=== PATIENT | male | born 1960 | race Caucasian/White ===

== ENCOUNTER 2017-01-04 14:02 | Inpatient (IN) | payer OTHER ==
[~2017-01-04] VITALS: Ht 162.6 cm; Wt 92.9 kg
[~2017-01-04 14:02] MED LIST: VENTOLIN HFA18 GM IH; ZITHROMAX Z-PA250 MG PO
[2017-01-04 14:52] LABS: HEMATOCRIT 37.7 % (38.0-50.0); MCH 27.3 PG (29.0-34.0); MCHC 32.1 G/DL (30.0-36.0); MCV 84.9 FL (86-99); MEAN PLAT.VOLUME 8.3 uM^3 (9.0-12.4); PLATELET COUNT 315 K/uL (156-360); RBC DIS.WIDTH-CV 16.3 % (11.8-14.6); RBC DIS.WIDTH-SD 50.4 % (39-53); RED BLOOD COUNT 4.44 M/uL (4.00-5.50); WHITE BLOOD COUNT 9.6 K/uL (4.1-10.2)
[2017-01-04 15:05] LABS: CHLORIDE 100 mEq/L (99-109); POTASSIUM 4.1 mEq/L (3.7-5.4); SODIUM 137 mEq/L (136-147)
[2017-01-04 15:07] LABS: GLUCOSE 106 mg/dL (70-99)
[2017-01-04 15:08] LABS: ANION GAP 11 MEQ/L (2-14)
[2017-01-04 15:11] LABS: GFR ESTIMATE (CALCULATED) > 59 mL/min/
[2017-01-04 15:12] LABS: UREA NITROGEN (BUN) 25 mg/dL (9-23)
[2017-01-04 15:46] LABS: D-DIMER ELISA 0.75 mg/L FEU (< 0.57); TOTAL BILIRUBIN 0.6 mg/dL (0.0-1.0)
[2017-01-04 15:47] LABS: ALKALINE PHOSPHATASE 92 IU/L (3-129)
[2017-01-04 15:50] LABS: DIRECT BILIRUBIN 0.2 mg/dL (0.0-0.3)
[2017-01-04 15:56] LABS: TROP-I INTERPRETATION NEGATIVE; TROPONIN-I < 0.01 ng/mL (0.0-0.30)
[2017-01-04] MEDS ORDERED: TRIAZOLAM0.25 MG PO (18:15)
[2017-01-04] MEDS ORDERED: DOXEPIN HCL100 MG PO (18:17)
[2017-01-04] MEDS ORDERED: MEDROL DOSEPAK4 MG PO (18:17)
[2017-01-04] MEDS ORDERED: BUSPAR15 MG PO (18:18)
[2017-01-04] MEDS ORDERED: LASIX40 MG PO (18:18)
[2017-01-04] MEDS ORDERED: K-DUR20 MEQ PO (18:18)
[2017-01-04] MEDS ORDERED: DOXEPIN HCL25 MG PO (18:18)
[2017-01-04] MEDS ORDERED: BUPROPION HCL150 M2 PO (18:18)
[2017-01-04] MEDS ORDERED: CLONIDINE HCL0.2 MG PO (18:19)
[2017-01-04] MEDS ORDERED: ADVIL,NUPRIN,M200 MG PO (18:19)
[2017-01-04] MEDS ORDERED: LISINOPRIL10 MG PO (18:19)
[2017-01-04] MEDS ORDERED: COMBIVENT RESPIM4 GM IH (18:19)
[2017-01-04] MEDS ORDERED: SUBOXONE 8 MG-1 EAC2 SL (18:19)
[2017-01-04] MEDS ORDERED: INCRUSE ELLI62.5 MCG IH (18:27)
[2017-01-04] MEDS ORDERED: TIMOPTIC-0100 DROP/5 RIGHT EYE (18:30)
[2017-01-04 23:52] VITALS: BP 117/77
[2017-01-05 04:00] VITALS: BP 120/84
[2017-01-05 07:02] LABS: ANION GAP 11 MEQ/L (2-14); CHLORIDE 98 MEQ/L (99-109); GFR ESTIMATE (CALCULATED) > 59 mL/min/; POTASSIUM 3.9 MEQ/L (3.7-5.4); SAMPLE HEMOLYSIS CHECK 0; SAMPLE ICTERIC CHECK 0; SAMPLE LIPEMIA CHECK 0; SODIUM 135 MEQ/L (136-147); UREA NITROGEN (BUN) 28 mg/dL (9-23)
[2017-01-05 07:09] LABS: GLUCOSE 189 mg/dL (70-99)
[2017-01-05 07:15] LABS: EOSINOPHIL (%) 0 % (0-5); HEMATOCRIT 36.7 % (38.0-50.0); IMMATURE GRANULOCYTE (%) 0.2 % (0.0-0.7); LYMPHOCYTE COUNT 0.8 K/uL (1.0-2.8); MCH 26.4 PG (29.0-34.0); MCHC 30.2 G/DL (30.0-36.0); MCV 87.2 FL (86-99); MONOCYTE (%) 1.7 % (3-12); MONOCYTE COUNT 0.1 K/uL (0-0.8); NEUTROPHIL (%) 85.2 % (45-76); PLATELET COUNT 303 K/uL (156-360); RBC DIS.WIDTH-CV 16.8 % (11.8-14.6); RBC DIS.WIDTH-SD 53.3 % (39-53); RED BLOOD COUNT 4.21 M/uL (4.00-5.50)
[2017-01-05 07:16] LABS: WHITE BLOOD COUNT 5.9 K/uL (4.1-10.2)
[2017-01-05 07:54] LABS: INTERNAL CONTROL VALID? YES
[2017-01-05 08:35] VITALS: BP 135/78
[2017-01-05 09:21] LABS: TROP-I INTERPRETATION NEGATIVE; TROPONIN-I < 0.01 ng/mL (0.0-0.30)
[2017-01-05 10:55] VITALS: BP 159/96
[2017-01-05 16:03] LABS: INFLUENZA A VIRAL ANTIGEN NEGATIVE; INFLUENZA B VIRAL ANTIGEN NEGATIVE
[2017-01-05 16:28] VITALS: BP 126/72
[2017-01-06] VITALS: BP 122/63
[2017-01-06 07:27] LABS: ANION GAP 11 MEQ/L (2-14); CHLORIDE 100 MEQ/L (99-109); GFR ESTIMATE (CALCULATED) > 59 mL/min/; GLUCOSE 156 mg/dL (70-99); POTASSIUM 4.4 MEQ/L (3.7-5.4); SAMPLE HEMOLYSIS CHECK 0; SAMPLE ICTERIC CHECK 0; SAMPLE LIPEMIA CHECK 0; SODIUM 137 MEQ/L (136-147); UREA NITROGEN (BUN) 38 mg/dL (9-23)
[2017-01-06 16:16] VITALS: BP 126/71
[2017-01-07] VITALS: BP 182/82
[2017-01-07 03:59] VITALS: BP 169/95
[2017-01-07 07:30] VITALS: BP 159/80
[2017-01-07 10:40] VITALS: BP 136/93
[2017-01-07 15:57] VITALS: BP 160/98
[2017-01-08 00:21] VITALS: BP 161/86
[2017-01-08 08:35] VITALS: BP 131/77; BP 190/90
[2017-01-08 15:01] VITALS: BP 168/78
[2017-01-08 23:59] VITALS: BP 149/99
[2017-01-09 08:07] VITALS: BP 175/90
[2017-01-09 11:40] VITALS: BP 179/96
[2017-01-09 15:36] VITALS: BP 157/81
[2017-01-10 00:05] VITALS: BP 168/96
[2017-01-10 07:49] VITALS: BP 173/102
[2017-01-10 15:39] VITALS: BP 181/109
[2017-01-10 16:02] VITALS: BP 139/99
[2017-01-11] VITALS: BP 169/90
[2017-01-11 08:13] VITALS: BP 156/94
[2017-01-11 09:35] LABS: HEMATOCRIT 38.2 % (38.0-50.0); MCH 27.3 PG (29.0-34.0); MCHC 30.6 G/DL (30.0-36.0); MCV 89.3 FL (86-99); MEAN PLAT.VOLUME 8.5 uM^3 (9.0-12.4); PLATELET COUNT 347 K/uL (156-360); RBC DIS.WIDTH-SD 55.1 % (39-53); RED BLOOD COUNT 4.28 M/uL (4.00-5.50)
[2017-01-11 09:43] LABS: WHITE BLOOD COUNT 11.9 K/uL (4.1-10.2)
[2017-01-11 09:56] LABS: ANION GAP 7 MEQ/L (2-14); CHLORIDE 104 MEQ/L (99-109); POTASSIUM 4.5 MEQ/L (3.7-5.4); SAMPLE HEMOLYSIS CHECK 0; SAMPLE ICTERIC CHECK 0; SAMPLE LIPEMIA CHECK 0; SODIUM 143 MEQ/L (136-147)
[2017-01-11 10:18] LABS: GFR ESTIMATE (CALCULATED) > 59 mL/min/; GLUCOSE 88 mg/dL (70-99); UREA NITROGEN (BUN) 27 mg/dL (9-23)
[2017-01-11] MEDS ORDERED: THEO-DUR,THEOC300 MG PO (12:38)
[2017-01-11] MEDS ORDERED: MEDROL DOSEPAK4 MG PO ×2 (12:38→15:18)
[2017-01-11] MEDS ORDERED: ADVAIR HFA120 INHALA IH (12:38)
[2017-01-11] MEDS ORDERED: LEVOFLOXACIN500 MG PO (12:38)
[2017-01-11] MEDS ORDERED: TIMOPTIC-0100 DROP/5 RIGHT EYE (15:18)
[2017-01-11] MEDS ORDERED: TRIAZOLAM0.25 MG PO (15:18)
== END 2017-01-11 16:00 | disposition home or self-care (01) | DRG 190 ==
LOC: EME 14:02 → EDOF 19:54 → 5WEST 22:25 → EDOF 22:25 → 5WEST 23:04 → 5SOUTH 01-05 08:54 → 5WEST 01-05 08:54 → 5SOUTH 01-05 10:41
PROVIDERS: Hospitalist; Internal Medicine; Nurse Practitioner Adult Health
PROC: 02HV33Z Insertion of Infusion Device into Superior Vena Cava, Percutaneous Approach (ICD-10-PCS; principal; 2017-01-06)
DX: J44.1 Chronic obstructive pulmonary disease with (acute) exacerbation (principal); J18.0 Bronchopneumonia, unspecified organism; J96.90 Respiratory failure, unspecified, unspecified whether with hypoxia or hypercapnia; E78.5 Hyperlipidemia, unspecified; R05 Cough; R60.0 Localized edema; F17.200 Nicotine dependence, unspecified, uncomplicated; R06.01 Orthopnea; I15.0 Renovascular hypertension; R00.0 Tachycardia, unspecified; Z91.013 Allergy to seafood; D64.9 Anemia, unspecified; J44.0 Chronic obstructive pulmonary disease with (acute) lower respiratory infection; E78.2 Mixed hyperlipidemia; Z87.898 Personal history of other specified conditions; Z86.711 Personal history of pulmonary embolism; Z68.35 Body mass index [BMI] 35.0-35.9, adult; E66.9 Obesity, unspecified
CPT/HCPCS: 71010; 71020; 71275; 76937; 80048; 80076; 80198; 83880; 84484; 85025; 85027; 85379; 87040; 87070; 87205; 87449; 87493; 87502; 93005; 93306; 93970; 94640; 94640 76; 94644; 94645; 94760; 94799; 99202; 99281; 99285; C1752; C1894; G0378; J0456; J0574; J0692; J0696; J1170; J1650; J1885; J1940; J2060; J2270; J2930; J7030; J7040; J7050; J7512

== ENCOUNTER 2017-01-27 01:59 | Inpatient (IN) | payer OTHER ==
[~2017-01-27] VITALS: Ht 162.6 cm; Wt 95.8 kg
[~2017-01-27 01:59] MED LIST changes: +ADVAIR HFA120 INHALA IH; +ADVIL,NUPRIN,M200 MG PO; +BUPROPION HCL150 M2 PO; +BUSPAR15 MG PO; +CLONIDINE HCL0.2 MG PO; +COMBIVENT RESPIM4 GM IH; +DOXEPIN HCL100 MG PO; +DOXEPIN HCL25 MG PO; +INCRUSE ELLI62.5 MCG IH; +K-DUR20 MEQ PO; +LASIX40 MG PO; +LEVOFLOXACIN500 MG PO; +LISINOPRIL10 MG PO; +MEDROL DOSEPAK4 MG PO; +SUBOXONE 8 MG-1 EAC2 SL; +THEO-DUR,THEOC300 MG PO; +TIMOPTIC-0100 DROP/5 RIGHT EYE; +TRIAZOLAM0.25 MG PO
[2017-01-27 03:14] LABS: EOSINOPHIL (%) 3.4 % (0-5); EOSINOPHIL COUNT 0.3 K/uL (0-0.3); HEMATOCRIT 34.4 % (38.0-50.0); IMMATURE GRANULOCYTE (%) 0.1 % (0.0-0.7); INSTRUMENT ABS NEUTROPHIL CT 4.1 K/uL; LYMPHOCYTE COUNT 2.7 K/uL (1.0-2.8); MCH 27.6 PG (29.0-34.0); MCHC 31.4 G/DL (30.0-36.0); MCV 87.8 FL (86-99); MEAN PLAT.VOLUME 8.5 uM^3 (9.0-12.4); MONOCYTE (%) 8.3 % (3-12); MONOCYTE COUNT 0.6 K/uL (0-0.8); NEUTROPHIL (%) 53.5 % (45-76); NEUTROPHIL COUNT 4.1 K/uL (1.8-6.4); PLATELET COUNT 308 K/uL (156-360); RBC DIS.WIDTH-CV 15.5 % (11.8-14.6); RBC DIS.WIDTH-SD 49.4 % (39-53); RED BLOOD COUNT 3.92 M/uL (4.00-5.50)
[2017-01-27 03:17] LABS: WHITE BLOOD COUNT 7.7 K/uL (4.1-10.2)
[2017-01-27 03:25] LABS: CHLORIDE 110 mEq/L (99-109); POTASSIUM 3.7 mEq/L (3.7-5.4); SODIUM 145 mEq/L (136-147)
[2017-01-27 03:27] LABS: GLUCOSE 109 mg/dL (70-99)
[2017-01-27 03:28] LABS: ANION GAP 14 MEQ/L (2-14)
[2017-01-27 03:30] LABS: SERUM ETHYL ALCOHOL 279 mg/dL
[2017-01-27 03:31] LABS: GFR ESTIMATE (CALCULATED) > 59 mL/min/
[2017-01-27 03:32] LABS: UREA NITROGEN (BUN) 21 mg/dL (9-23)
[2017-01-27 03:59] LABS: TROP-I INTERPRETATION NEGATIVE; TROPONIN-I < 0.01 ng/mL (0.0-0.30)
[2017-01-27 06:00] LABS: AMPHETAMINE NEGATIVE (500 ng/mL); BENZODIAZEPINES NEGATIVE (150 ng/mL); COCAINE NEGATIVE (150 ng/mL); METHAMPHETAMINE NEGATIVE (500 ng/mL); OPIATES (MORPHINE) NEGATIVE (100 ng/mL); PHENCYCLIDINE NEGATIVE (25 ng/mL); THC CANNABINOIDS NEGATIVE (50 ng/mL)
[2017-01-27 06:01] LABS: BARBITURATES NEGATIVE (200 ng/mL); INTERNAL CONTROLS VALID? YES; METHADONE NEGATIVE (200 ng/mL); OXYCODONE NEGATIVE (100 ng/mL); PROPOXYPHENE NEGATIVE (300 ng/mL); TRICYCLIC ANTIDEPRESSANTS PRESUMPTIVE POSITIVE (300 ng/mL)
[2017-01-27 06:43] LABS: TROP-I INTERPRETATION NEGATIVE; TROPONIN-I < 0.01 ng/mL (0.0-0.30)
[2017-01-27 14:11] LABS: MAGNESIUM 1.8 mg/dL (1.3-2.7)
[2017-01-27 14:15] LABS: SERUM ETHYL ALCOHOL 85 mg/dL
[2017-01-27 14:54] LABS: IRON 37 MCG/DL (35-150)
[2017-01-27 15:36] VITALS: BP 150/104
[2017-01-27 15:56] LABS: FERRITIN 39 NG/ML (22-322)
[2017-01-27 19:35] VITALS: BP 170/93
[2017-01-27 23:24] VITALS: BP 158/83
[2017-01-28] VITALS (7 sets, daily range): BP systolic 146–179; BP diastolic 69–107
[2017-01-28 07:23] LABS: EOSINOPHIL (%) 0 % (0-5); HEMATOCRIT 31.6 % (38.0-50.0); IMMATURE GRANULOCYTE (%) 0.5 % (0.0-0.7); INSTRUMENT ABS NEUTROPHIL CT 4.3 K/uL; LYMPHOCYTE COUNT 0.9 K/uL (1.0-2.8); MCV 87.5 FL (86-99); MEAN PLAT.VOLUME 8.6 uM^3 (9.0-12.4); MONOCYTE (%) 7.4 % (3-12); MONOCYTE COUNT 0.4 K/uL (0-0.8); NEUTROPHIL (%) 75.6 % (45-76); NEUTROPHIL COUNT 4.3 K/uL (1.8-6.4); PLATELET COUNT 290 K/uL (156-360); RBC DIS.WIDTH-CV 15.4 % (11.8-14.6); RBC DIS.WIDTH-SD 49.1 % (39-53); RED BLOOD COUNT 3.61 M/uL (4.00-5.50); WHITE BLOOD COUNT 5.7 K/uL (4.1-10.2)
[2017-01-28 07:48] LABS: ANION GAP 9 MEQ/L (2-14); CHLORIDE 108 MEQ/L (99-109); GFR ESTIMATE (CALCULATED) > 59 mL/min/; GLUCOSE 177 mg/dL (70-99); POTASSIUM 3.8 MEQ/L (3.7-5.4); SAMPLE HEMOLYSIS CHECK 0; SAMPLE ICTERIC CHECK 0; SAMPLE LIPEMIA CHECK 0; SODIUM 140 MEQ/L (136-147); UREA NITROGEN (BUN) 15 mg/dL (9-23)
[2017-01-28 08:16] LABS: INTERNAL CONTROL VALID? YES
[2017-01-28 13:14] LABS: METH RESISTANT S AUREUS PCR NEGATIVE (NEGATIVE)
[2017-01-28 13:18] LABS: PROBE CHECK PASS; SPECIMEN PROCESSING CONTROL PASS
[2017-01-29 03:11] VITALS: BP 145/81
[2017-01-29 08:51] VITALS: BP 158/96
[2017-01-29 11:30] VITALS: BP 140/86
[2017-01-29] MEDS ORDERED: THEOCHRON300 MG PO ×2 (14:12→14:23)
[2017-01-29] MEDS ORDERED: HALCION0.25 MG PO (14:14)
[2017-01-29] MEDS ORDERED: LISINOPRIL20 MG PO (14:21)
[2017-01-29] MEDS ORDERED: ALPRAZOLAM0.25 M2 PO (14:25)
[2017-01-29 15:03] LABS: TROP-I INTERPRETATION NEGATIVE; TROPONIN-I < 0.01 ng/mL (0.0-0.30)
[2017-01-29 20:00] VITALS: BP 142/84
[2017-01-29 21:03] VITALS: BP 142/84
[2017-01-30] VITALS: BP 116/69
[2017-01-30 04:00] VITALS: BP 123/73
[2017-01-30] MEDS ORDERED: AZITHROMYCIN500 M1 PO (07:44)
[2017-01-30] MEDS ORDERED: NICOTINE PATCH1 EAC2 TD (07:45)
[2017-01-30] MEDS ORDERED: LOPRESSOR25 MG PO (07:46)
[2017-01-30] MEDS ORDERED: FOLIC ACID1 MG PO (07:47)
[2017-01-30] MEDS ORDERED: THIAMINE HCL100 MG PO (07:47)
[2017-01-30] MEDS ORDERED: PROTONIX40 MG PO (07:50)
[2017-01-30 08:26] VITALS: BP 142/84
[2017-01-30 11:38] VITALS: BP 144/84
== END 2017-01-30 12:27 | disposition home or self-care (01) | DRG 190 ==
LOC: EME → EDBD 01:59 → EME 01:59 → 5SOUTH 12:59 → EDOF 12:59 → 5SOUTH 15:25
PROVIDERS: Emergency Medicine; Internal Medicine
DX: J44.1 Chronic obstructive pulmonary disease with (acute) exacerbation (principal); J96.01 Acute respiratory failure with hypoxia; J44.0 Chronic obstructive pulmonary disease with (acute) lower respiratory infection; J20.9 Acute bronchitis, unspecified; F10.229 Alcohol dependence with intoxication, unspecified; Y90.8 Blood alcohol level of 240 mg/100 ml or more; F11.20 Opioid dependence, uncomplicated; K86.0 Alcohol-induced chronic pancreatitis; K29.20 Alcoholic gastritis without bleeding; R45.850 Homicidal ideations; D64.9 Anemia, unspecified; F41.1 Generalized anxiety disorder; I10 Essential (primary) hypertension; E78.5 Hyperlipidemia, unspecified; F17.200 Nicotine dependence, unspecified, uncomplicated; Z71.6 Tobacco abuse counseling; Z78.1 Physical restraint status; Z86.718 Personal history of other venous thrombosis and embolism; Z91.19 Patient's noncompliance with other medical treatment and regimen; Z76.5 Malingerer [conscious simulation]
CPT/HCPCS: 71010; 71250; 76937; 80048; 82607; 82728; 82746; 83540; 83690; 83735; 83880; 84466; 84484; 85025; 87040; 87070; 87205; 87449; 87502; 87641; 90839; 93005; 94640; 94640 76; 94644; 94667; 94668; 94760; 94799; 99202; 99281; 99285; C1894; G0480; J0574; J1630; J1650; J1956; J2060; J2543; J2920; J2930; J3370; J3411; J7030; J7050

== ENCOUNTER 2017-04-03 19:44 | Inpatient (IN) | payer OTHER ==
[~2017-04-03] VITALS: Ht 172.7 cm; Wt 94.0 kg
[~2017-04-03 19:44] MED LIST changes: +ALPRAZOLAM0.25 M2 PO; +AZITHROMYCIN500 M1 PO; +FOLIC ACID1 MG PO; +HALCION0.25 MG PO; +LISINOPRIL20 MG PO; +LOPRESSOR25 MG PO; +NICOTINE PATCH1 EAC2 TD; +PROTONIX40 MG PO; +THEOCHRON300 MG PO; +THIAMINE HCL100 MG PO
[2017-04-03 20:51] LABS: EOSINOPHIL (%) 0 % (0-5); HEMATOCRIT 43.2 % (38.0-50.0); IMMATURE GRANULOCYTE (%) 0.7 % (0.0-0.7); IMMATURE GRANULOCYTE COUNT 0.1 K/uL; INSTRUMENT ABS NEUTROPHIL CT 7.2 K/uL; LYMPHOCYTE COUNT 1.6 K/uL (1.0-2.8); MCH 29.6 PG (29.0-34.0); MCHC 31.7 G/DL (30.0-36.0); MCV 93.3 FL (86-99); MEAN PLAT.VOLUME 8.5 uM^3 (9.0-12.4); MONOCYTE (%) 10.9 % (3-12); MONOCYTE COUNT 1.1 K/uL (0-0.8); NEUTROPHIL (%) 72.2 % (45-76); NEUTROPHIL COUNT 7.2 K/uL (1.8-6.4); PLATELET COUNT 267 K/uL (156-360); RBC DIS.WIDTH-CV 15.9 % (11.8-14.6); RBC DIS.WIDTH-SD 54.9 % (39-53); RED BLOOD COUNT 4.63 M/uL (4.00-5.50)
[2017-04-03 21:03] LABS: CHLORIDE 105 mEq/L (99-109); POTASSIUM 4.2 mEq/L (3.7-5.4); SODIUM 142 mEq/L (136-147)
[2017-04-03 21:05] LABS: GLUCOSE 68 mg/dL (70-99)
[2017-04-03 21:06] LABS: ANION GAP 15 MEQ/L (2-14)
[2017-04-03 21:08] LABS: GFR ESTIMATE (CALCULATED) > 59 mL/min/; SERUM ETHYL ALCOHOL 111 mg/dL
[2017-04-03 21:09] LABS: UREA NITROGEN (BUN) 23 mg/dL (9-23)
[2017-04-03 21:13] LABS: TROP-I INTERPRETATION NEGATIVE; TROPONIN-I 0.02 ng/mL (0.0-0.30)
[2017-04-03 23:37] LABS: ADD MIUA? YES; BILIRUBIN NEGATIVE; BLOOD MODERATE; COLOR YELLOW ((YELLOW)); GLUCOSE (STRIP) NEGATIVE; KETONES 20; LEUKOCYTES NEGATIVE; NITRITE NEGATIVE; PROTEIN (STRIP) 100; SPECIFIC GRAVITY 1.014 (1.000-1.030); UROBILINOGEN 0.2 MG/DL (0.2-1.0)
[2017-04-03 23:41] LABS: BACTERIA NONE SEEN /HPF; EPITHELIAL CELLS RARE /HPF; HYALINE CASTS 0-5 /LPF; MUCUS NONE SEEN /LPF; RED BLOOD CELLS 0-5 /HPF (0-5); UCUL ADDED? NO; WHITE BLOOD CELLS 0-5 /HPF (0-5)
[2017-04-03 23:59] LABS: AMPHETAMINE NEGATIVE (500 ng/mL); BARBITURATES NEGATIVE (200 ng/mL); BENZODIAZEPINES PRESUMPTIVE POSITIVE (150 ng/mL); COCAINE NEGATIVE (150 ng/mL); METHADONE NEGATIVE (200 ng/mL); METHAMPHETAMINE NEGATIVE (500 ng/mL); OPIATES (MORPHINE) NEGATIVE (100 ng/mL); OXYCODONE NEGATIVE (100 ng/mL); PHENCYCLIDINE NEGATIVE (25 ng/mL); PROPOXYPHENE NEGATIVE (300 ng/mL); THC CANNABINOIDS NEGATIVE (50 ng/mL); TRICYCLIC ANTIDEPRESSANTS PRESUMPTIVE POSITIVE (300 ng/mL)
[2017-04-04] LABS: ADD MEDTOX COMMENT Y; INTERNAL CONTROLS VALID? YES
[2017-04-04 00:30] LABS: POINT-OF-CARE METER ID UU14100415
[2017-04-04 02:34] LABS: BENZODIAZEPINES, URINE SCREEN POSITIVE (200 ng/mL)
[2017-04-04 07:17] LABS: POINT-OF-CARE METER ID UU13113702
[2017-04-04 08:10] LABS: HEMATOCRIT 38.8 % (38.0-50.0); MCH 29.5 PG (29.0-34.0); MCHC 32.2 G/DL (30.0-36.0); MCV 91.5 FL (86-99); MEAN PLAT.VOLUME 8.9 uM^3 (9.0-12.4); PLATELET COUNT 294 K/uL (156-360); RBC DIS.WIDTH-CV 15.9 % (11.8-14.6); RBC DIS.WIDTH-SD 53.2 % (39-53); RED BLOOD COUNT 4.24 M/uL (4.00-5.50)
[2017-04-04 08:40] LABS: CHLORIDE 103 mEq/L (99-109); SODIUM 138 mEq/L (136-147)
[2017-04-04 08:44] LABS: ANION GAP 10 MEQ/L (2-14); GLUCOSE 168 mg/dL (70-99)
[2017-04-04 08:45] LABS: TOTAL BILIRUBIN 0.5 mg/dL (0.0-1.0)
[2017-04-04 08:46] LABS: ALKALINE PHOSPHATASE 71 IU/L (3-129); GFR ESTIMATE (CALCULATED) > 59 mL/min/
[2017-04-04 08:47] LABS: UREA NITROGEN (BUN) 20 mg/dL (9-23)
[2017-04-04 11:38] LABS: BASE EXCESS 1.8 mEq/L (-3 to +3); BICARBONATE 25.7 mEq/L (22-26); CARBOXY HGB 2.3 % (0-5); COMMENTS - BLOOD GASES A+C+; DEVICE NC; METHEMOGLOBIN 1.6 % (0-1.5); O2 FLOW 2 L/MIN; PCO2 37 mm Hg (35-45); PO2 60 mm Hg (80-100); SITE RRA; TOTAL RESP RATE 14 resp/min; pH 7.45 (7.35-7.45)
[2017-04-04 12:26] LABS: D-DIMER ELISA 1.05 mg/L FEU (< 0.57)
[2017-04-04 12:34] VITALS: BP 188/107
[2017-04-04 15:32] VITALS: BP 194/103
[2017-04-04 20:02] VITALS: BP 186/111
[2017-04-04 23:13] VITALS: BP 168/94
[2017-04-05 03:44] VITALS: BP 149/88
[2017-04-05 08:58] VITALS: BP 183/101
[2017-04-05 12:38] VITALS: BP 185/110
[2017-04-05 12:40] VITALS: BP 163/89
[2017-04-05] MEDS ORDERED: SUBOXONE 8 MG-1 EAC2 SL (13:51)
[2017-04-05] MEDS ORDERED: ANORO ELLIPTA1 EACH IH (13:52)
[2017-04-05] MEDS ORDERED: BUSPAR30 MG PO (13:53)
[2017-04-05] MEDS ORDERED: FUROSEMIDE20 MG PO (14:07)
[2017-04-05 16:18] LABS: LIPASE 12 U/L (1.0-51.0)
[2017-04-05 19:59] VITALS: BP 156/93
[2017-04-05 23:55] VITALS: BP 140/83
[2017-04-06 04:02] VITALS: BP 119/56
[2017-04-06 08:17] VITALS: BP 110/72
[2017-04-06 11:08] VITALS: BP 145/85
[2017-04-06] MEDS ORDERED: THEO-DUR,THEOC300 MG PO (16:17)
[2017-04-06 16:39] VITALS: BP 159/94
[2017-04-06 19:41] VITALS: BP 129/77
[2017-04-06 23:34] VITALS: BP 149/81
[2017-04-07 04:13] VITALS: BP 146/93
[2017-04-07 08:34] VITALS: BP 147/82
[2017-04-07] MEDS ORDERED: DOXYCYCLINE HY100 M3 PO (11:32)
[2017-04-07] MEDS ORDERED: PREDNISONE20 MG PO (11:32)
[2017-04-07] MEDS ORDERED: LOPRESSOR25 MG PO (11:32)
[2017-04-07] MEDS ORDERED: LISINOPRIL40 MG PO (11:32)
[2017-04-07] MEDS ORDERED: BREO ELLIPTA I1 EACH IH (12:05)
[2017-04-07] MEDS ORDERED: ATROVENT H200 INHALA IH (12:05)
== END 2017-04-07 13:09 | disposition home or self-care (01) | DRG 947 ==
LOC: EME 19:44 → EDOF 04-04 04:58 → 5SOUTH 04-04 04:58
PROVIDERS: Emergency Medicine; Internal Medicine; Physician Assistant Medical
PROC: HZ2ZZZZ Detoxification Services for Substance Abuse Treatment (ICD-10-PCS; principal; 2017-04-04)
DX: R41.82 Altered mental status, unspecified (principal); F10.221 Alcohol dependence with intoxication delirium; F10.239 Alcohol dependence with withdrawal, unspecified; J44.1 Chronic obstructive pulmonary disease with (acute) exacerbation; J18.9 Pneumonia, unspecified organism; J44.0 Chronic obstructive pulmonary disease with (acute) lower respiratory infection; F11.20 Opioid dependence, uncomplicated; E86.0 Dehydration; Y90.5 Blood alcohol level of 100-119 mg/100 ml; F41.9 Anxiety disorder, unspecified; I10 Essential (primary) hypertension; E78.5 Hyperlipidemia, unspecified; F17.210 Nicotine dependence, cigarettes, uncomplicated
CPT/HCPCS: 36600; 70450; 71010; 71275; 80048; 80053; 81003; 82803; 82948; 83605; 83690; 84484; 84999; 85025; 85027; 85379; 87040; 93005; 93970; 94640; 94640 76; 94799; 99202; G0480; J0360; J0574; J0696; J1644; J2060; J2310; J3411; J3475; J7030; J7042; J7050; J7512

== ENCOUNTER 2017-04-11 23:50 | Emergency (ER) | payer OTHER ==
[~2017-04-11] VITALS: Ht 162.6 cm; Wt 83.2 kg
[~2017-04-11 23:50] MED LIST changes: +ANORO ELLIPTA1 EACH IH; +ATROVENT H200 INHALA IH; +BREO ELLIPTA I1 EACH IH; +BUSPAR30 MG PO; +DOXYCYCLINE HY100 M3 PO; +FUROSEMIDE20 MG PO; +LISINOPRIL40 MG PO; +PREDNISONE20 MG PO
[2017-04-12 01:00] LABS: CHLORIDE 108 mEq/L (99-109); SODIUM 143 mEq/L (136-147)
[2017-04-12 01:02] LABS: GLUCOSE 84 mg/dL (70-99)
[2017-04-12 01:03] LABS: ANION GAP 11 MEQ/L (2-14)
[2017-04-12 01:06] LABS: GFR ESTIMATE (CALCULATED) > 59 mL/min/; UREA NITROGEN (BUN) 24 mg/dL (9-23)
[2017-04-12 01:10] LABS: TROP-I INTERPRETATION NEGATIVE; TROPONIN-I 0.02 ng/mL (0.0-0.30)
[2017-04-12] MEDS ORDERED: PREDNISONE50 MG PO (01:30)
[2017-04-12] MEDS ORDERED: AZITHROMYCIN250 MG1 PO (01:34)
[2017-04-12 02:03] VITALS: BP 150/98
== END 2017-04-12 02:05 ==
LOC: EME 23:50
PROVIDERS: Emergency Medicine
DX: J44.1 Chronic obstructive pulmonary disease with (acute) exacerbation (principal)
CPT/HCPCS: 71020; 80048; 84484; 93005; 94640; 99281; 99284; J7512

== ENCOUNTER 2017-05-19 17:21 | Emergency (ER) | payer OTHER ==
[~2017-05-19 17:21] MED LIST changes: +AZITHROMYCIN250 MG1 PO; +PREDNISONE50 MG PO
[2017-05-20] MEDS ORDERED: VENTOLIN HFA18 GM IH (22:51)
== END 2017-05-19 17:25 | disposition left against medical advice (07) ==
LOC: EME 17:21
DX: F10.10 Alcohol abuse, uncomplicated (principal); Z53.21 Procedure and treatment not carried out due to patient leaving prior to being seen by health care provider

== ENCOUNTER 2017-05-20 10:12 | Emergency (ER) | payer OTHER ==
[~2017-05-20] VITALS: Ht 167.6 cm; Wt 83.3 kg
[2017-05-20 12:00] LABS: BASOPHIL COUNT 0.1 K/uL (0-0.1); EOSINOPHIL (%) 0.6 % (0-5); EOSINOPHIL COUNT 0.1 K/uL (0-0.3); HEMATOCRIT 44.4 % (38.0-50.0); IMMATURE GRANULOCYTE (%) 0.2 % (0.0-0.7); INSTRUMENT ABS NEUTROPHIL CT 5.9 K/uL; LYMPHOCYTE COUNT 1.6 K/uL (1.0-2.8); MCH 29.3 PG (29.0-34.0); MCHC 33.1 G/DL (30.0-36.0); MCV 88.4 FL (86-99); MEAN PLAT.VOLUME 8.9 uM^3 (9.0-12.4); MONOCYTE (%) 7.2 % (3-12); MONOCYTE COUNT 0.6 K/uL (0-0.8); NEUTROPHIL COUNT 5.9 K/uL (1.8-6.4); PLATELET COUNT 240 K/uL (156-360); RBC DIS.WIDTH-CV 13.9 % (11.8-14.6); RBC DIS.WIDTH-SD 45.1 % (39-53); RED BLOOD COUNT 5.02 M/uL (4.00-5.50); WHITE BLOOD COUNT 8.2 K/uL (4.1-10.2)
[2017-05-20 12:09] LABS: CHLORIDE 106 mEq/L (99-109); POTASSIUM 3.5 mEq/L (3.7-5.4); SODIUM 145 mEq/L (136-147)
[2017-05-20 12:11] LABS: GLUCOSE 91 mg/dL (70-99)
[2017-05-20 12:13] LABS: ANION GAP 19 MEQ/L (2-14)
[2017-05-20 12:15] LABS: GFR ESTIMATE (CALCULATED) > 59 mL/min/
[2017-05-20 12:16] LABS: UREA NITROGEN (BUN) 31 mg/dL (9-23)
[2017-05-20 12:21] LABS: TROP-I INTERPRETATION NEGATIVE; TROPONIN-I 0.08 ng/mL (0.0-0.30)
[2017-05-20 19:03] LABS: TROP-I INTERPRETATION NEGATIVE; TROPONIN-I 0.08 ng/mL (0.0-0.30)
[2017-05-20] MEDS ORDERED: VENTOLIN HFA18 GM IH (22:51)
[2017-05-20 23:07] VITALS: BP 122/83
== END 2017-05-20 23:08 | disposition home or self-care (01) ==
LOC: EME → EDBD 10:12 → EME 10:12
PROVIDERS: Emergency Medicine
DX: F10.129 Alcohol abuse with intoxication, unspecified (principal); J44.9 Chronic obstructive pulmonary disease, unspecified; F17.200 Nicotine dependence, unspecified, uncomplicated; Y90.8 Blood alcohol level of 240 mg/100 ml or more; I10 Essential (primary) hypertension; Z91.013 Allergy to seafood
CPT/HCPCS: 70450; 71010; 80048; 84484; 85025; 93005; 94640; 99281; 99285; G0480; J1100; J2060; J2310

== ENCOUNTER 2017-06-07 16:24 | Inpatient (IN) | payer OTHER ==
[~2017-06-07] VITALS: Ht 165.1 cm; Wt 99.0 kg
[2017-06-07 17:59] LABS: CHLORIDE 98 mEq/L (99-109); POTASSIUM 2.9 mEq/L (3.7-5.4); SODIUM 139 mEq/L (136-147)
[2017-06-07 18:02] LABS: GLUCOSE 95 mg/dL (70-99)
[2017-06-07 18:03] LABS: ANION GAP 19 MEQ/L (2-14)
[2017-06-07 18:04] LABS: TOTAL BILIRUBIN 0.3 mg/dL (0.0-1.0)
[2017-06-07 18:05] LABS: SERUM ETHYL ALCOHOL 140 mg/dL
[2017-06-07 18:06] LABS: ALKALINE PHOSPHATASE 93 IU/L (3-129); GFR ESTIMATE (CALCULATED) 17 mL/min/
[2017-06-07 18:08] LABS: UREA NITROGEN (BUN) 32 mg/dL (9-23)
[2017-06-07 18:09] LABS: SALICYLATE < 5.0 MG/DL (15-30); TROP-I INTERPRETATION NEGATIVE; TROPONIN-I 0.02 ng/mL (0.0-0.30)
[2017-06-07 18:10] LABS: LIPASE 27 U/L (1.0-51.0)
[2017-06-07 19:11] LABS: EOSINOPHIL (%) 1.3 % (0-5); EOSINOPHIL COUNT 0.1 K/uL (0-0.3); HEMATOCRIT 32.4 % (38.0-50.0); IMMATURE GRANULOCYTE (%) 0.3 % (0.0-0.7); INSTRUMENT ABS NEUTROPHIL CT 4.4 K/uL; MCH 29.3 PG (29.0-34.0); MCHC 31.8 G/DL (30.0-36.0); MEAN PLAT.VOLUME 8.8 uM^3 (9.0-12.4); MONOCYTE (%) 9.3 % (3-12); MONOCYTE COUNT 0.7 K/uL (0-0.8); NEUTROPHIL (%) 60.9 % (45-76); NEUTROPHIL COUNT 4.4 K/uL (1.8-6.4); PLATELET COUNT 222 K/uL (156-360); RBC DIS.WIDTH-SD 54.3 % (39-53); WHITE BLOOD COUNT 7.2 K/uL (4.1-10.2)
[2017-06-07 19:12] LABS: RED BLOOD COUNT 3.52 M/uL (4.00-5.50)
[2017-06-07 20:52] LABS: ADD MIUA? YES; BILIRUBIN NEGATIVE; BLOOD SMALL; COLOR YELLOW ((YELLOW)); GLUCOSE (STRIP) NEGATIVE; KETONES NEGATIVE; LEUKOCYTES NEGATIVE; NITRITE NEGATIVE; PROTEIN (STRIP) 100; SPECIFIC GRAVITY 1.017 (1.000-1.030); UROBILINOGEN 0.2 MG/DL (0.2-1.0)
[2017-06-07 21:05] LABS: BACTERIA NONE SEEN /HPF; EPITHELIAL CELLS RARE /HPF; HYALINE CASTS TNTC /LPF; MUCUS TRACE /LPF; RED BLOOD CELLS 0-5 /HPF (0-5); UCUL ADDED? YES
[2017-06-07] MEDS ORDERED: INCRUSE ELLI62.5 MCG IH (21:27)
[2017-06-07] MEDS ORDERED: BUSPAR30 MG PO (21:28)
[2017-06-07] MEDS ORDERED: DOXEPIN HCL100 MG PO (21:28)
[2017-06-07] MEDS ORDERED: DOXEPIN HCL25 MG PO (21:28)
[2017-06-07] MEDS ORDERED: WELLBUTRIN SR150 MG PO (21:28)
[2017-06-07] MEDS ORDERED: HALCION0.25 MG PO (21:28)
[2017-06-07] MEDS ORDERED: MICRO-K10 ME2 PO (21:28)
[2017-06-07] MEDS ORDERED: ALPRAZOLAM0.25 M2 PO (21:29)
[2017-06-08] VITALS (7 sets, daily range): BP systolic 123–170; BP diastolic 78–95
[2017-06-08 05:50] LABS: EOSINOPHIL (%) 3.7 % (0-5); EOSINOPHIL COUNT 0.2 K/uL (0-0.3); HEMATOCRIT 31.9 % (38.0-50.0); IMMATURE GRANULOCYTE (%) 0.3 % (0.0-0.7); INSTRUMENT ABS NEUTROPHIL CT 2.8 K/uL; LYMPHOCYTE COUNT 2.1 K/uL (1.0-2.8); MCH 29.2 PG (29.0-34.0); MCHC 31.3 G/DL (30.0-36.0); MEAN PLAT.VOLUME 9.2 uM^3 (9.0-12.4); MONOCYTE (%) 12.6 % (3-12); MONOCYTE COUNT 0.8 K/uL (0-0.8); NEUTROPHIL (%) 47.7 % (45-76); NEUTROPHIL COUNT 2.8 K/uL (1.8-6.4); PLATELET COUNT 219 K/uL (156-360); RBC DIS.WIDTH-CV 16.2 % (11.8-14.6); RBC DIS.WIDTH-SD 54.7 % (39-53); RED BLOOD COUNT 3.43 M/uL (4.00-5.50); WHITE BLOOD COUNT 5.9 K/uL (4.1-10.2)
[2017-06-08 06:45] LABS: ANION GAP 12 MEQ/L (2-14); CHLORIDE 107 MEQ/L (99-109); GLUCOSE 83 mg/dL (70-99); MAGNESIUM 1.3 mg/dl (1.3-2.7); SAMPLE HEMOLYSIS CHECK 0; SAMPLE ICTERIC CHECK 0; SAMPLE LIPEMIA CHECK 0; SODIUM 142 MEQ/L (136-147); UREA NITROGEN (BUN) 28 mg/dL (9-23)
[2017-06-08 06:52] LABS: GFR ESTIMATE (CALCULATED) 33 mL/min/
[2017-06-08 06:53] LABS: POTASSIUM 3.8 MEQ/L (3.7-5.4)
[2017-06-09] VITALS (11 sets, daily range): BP systolic 136–193; BP diastolic 84–105
[2017-06-09 06:57] LABS: AMYLASE 46 IU/L (1-118); ANION GAP 8 MEQ/L (2-14); CHLORIDE 110 MEQ/L (99-109); CREATINE KINASE 50 IU/L (1-294); GLUCOSE 88 mg/dL (70-99); IRON 70 MCG/DL (35-150); LIPASE 30 U/L (1.0-51.0); POTASSIUM 3.9 MEQ/L (3.7-5.4); SAMPLE HEMOLYSIS CHECK 0; SAMPLE ICTERIC CHECK 0; SAMPLE LIPEMIA CHECK 0; SERUM ETHYL ALCOHOL < 10 mg/dL; SODIUM 142 MEQ/L (136-147); UREA NITROGEN (BUN) 34 mg/dL (9-23); URIC ACID 7.4 mg/dL (3.1-9.2)
[2017-06-09 07:08] LABS: GFR ESTIMATE (CALCULATED) > 59 mL/min/; MAGNESIUM 1.8 mg/dl (1.3-2.7)
[2017-06-10 02:45] VITALS: BP 160/86
[2017-06-10 07:30] VITALS: BP 152/80
[2017-06-10 09:41] LABS: ANION GAP 10 MEQ/L (2-14); CHLORIDE 108 MEQ/L (99-109); GFR ESTIMATE (CALCULATED) > 59 mL/min/; GLUCOSE 84 mg/dL (70-99); SAMPLE HEMOLYSIS CHECK 0; SAMPLE ICTERIC CHECK 0; SAMPLE LIPEMIA CHECK 0; SODIUM 142 MEQ/L (136-147); UREA NITROGEN (BUN) 24 mg/dL (9-23)
[2017-06-10 10:59] VITALS: BP 167/80
[2017-06-10 15:57] VITALS: BP 170/80
[2017-06-10 19:13] VITALS: BP 144/88
[2017-06-10 23:10] VITALS: BP 160/92
[2017-06-11 07:13] VITALS: BP 162/84
[2017-06-11 07:24] LABS: ANION GAP 9 MEQ/L (2-14); CHLORIDE 106 MEQ/L (99-109); GFR ESTIMATE (CALCULATED) > 59 mL/min/; GLUCOSE 96 mg/dL (70-99); POTASSIUM 4.2 MEQ/L (3.7-5.4); SAMPLE HEMOLYSIS CHECK 0; SAMPLE ICTERIC CHECK 0; SAMPLE LIPEMIA CHECK 0; SODIUM 142 MEQ/L (136-147); UREA NITROGEN (BUN) 30 mg/dL (9-23)
[2017-06-11 15:45] VITALS: BP 170/100
[2017-06-11 22:05] VITALS: BP 132/82
[2017-06-11 23:15] VITALS: BP 133/81
[2017-06-12 06:54] LABS: ANION GAP 9 MEQ/L (2-14); CHLORIDE 104 MEQ/L (99-109); GFR ESTIMATE (CALCULATED) > 59 mL/min/; GLUCOSE 100 mg/dL (70-99); POTASSIUM 4.5 MEQ/L (3.7-5.4); SAMPLE HEMOLYSIS CHECK 0; SAMPLE ICTERIC CHECK 0; SAMPLE LIPEMIA CHECK 0; SODIUM 142 MEQ/L (136-147); UREA NITROGEN (BUN) 30 mg/dL (9-23)
[2017-06-12 07:15] VITALS: BP 182/102
[2017-06-12] MEDS ORDERED: METOPROLOL SUC100 MG PO (15:53)
[2017-06-12] MEDS ORDERED: CLONIDINE1 EAC1 TD (15:53)
[2017-06-12] MEDS ORDERED: VALSARTAN160 MG PO (15:53)
[2017-06-12] MEDS ORDERED: APRESOLINE50 MG PO (15:53)
[2017-06-12] MEDS ORDERED: TYLENOL REGULA325 MG PO (15:54)
[2017-06-12 16:00] VITALS: BP 181/96
[2017-06-12] MEDS ORDERED: ZOLPIDEM TARTRAT5 MG PO (16:01)
[2017-06-12] MEDS ORDERED: SUBOXONE 8 MG-1 EAC2 SL (16:33)
== END 2017-06-12 17:37 | disposition home health service (06) | DRG 683 ==
LOC: EME 16:24 → EDOF 21:42 → 5EAST 21:42 → ENRESERV 21:53 → EDOF 22:35 → ENRESERV 23:03 → 4EAST 06-08 00:51 → ENRESERV 06-09 12:08 → CANRESERV 06-09 12:11 → ENRESERV 06-09 12:58 → 5EAST 06-09 16:34
PROVIDERS: Emergency Medicine; Family Medicine Sports Medicine; Internal Medicine Nephrology
PROC: HZ2ZZZZ Detoxification Services for Substance Abuse Treatment (ICD-10-PCS; principal; 2017-06-07)
DX: N17.9 Acute kidney failure, unspecified (principal); F10.239 Alcohol dependence with withdrawal, unspecified; R56.9 Unspecified convulsions; F10.229 Alcohol dependence with intoxication, unspecified; E86.0 Dehydration; E87.2 Acidosis; E87.6 Hypokalemia; I95.9 Hypotension, unspecified; F11.20 Opioid dependence, uncomplicated; R41.82 Altered mental status, unspecified; I10 Essential (primary) hypertension; I25.10 Atherosclerotic heart disease of native coronary artery without angina pectoris; J44.9 Chronic obstructive pulmonary disease, unspecified; E78.5 Hyperlipidemia, unspecified; F41.8 Other specified anxiety disorders; F41.0 Panic disorder [episodic paroxysmal anxiety]; F14.10 Cocaine abuse, uncomplicated; G89.29 Other chronic pain; M54.5 Low back pain; M19.90 Unspecified osteoarthritis, unspecified site; F17.200 Nicotine dependence, unspecified, uncomplicated; Z86.711 Personal history of pulmonary embolism; Z86.73 Personal history of transient ischemic attack (TIA), and cerebral infarction without residual deficits; Z91.14 Patient's other noncompliance with medication regimen
CPT/HCPCS: 70450; 71010; 74176; 76770; 80048; 80053; 80069; 81003; 82150; 82550; 83540; 83605; 83690; 83735; 84466; 84484; 84550; 85025; 87040; 87086; 93005; 94640; 94640 76; 94799; 99202; 99281; 99285; G0480; J0360; J0574; J1940; J2060; J2543; J3370; J3411; J3475; J3480; J7030

== ENCOUNTER 2017-06-23 15:43 | Emergency (ER) | payer OTHER ==
[~2017-06-23] VITALS: Ht 165.1 cm; Wt 87.5 kg
[~2017-06-23 15:43] MED LIST changes: +APRESOLINE50 MG PO; +CLONIDINE1 EAC1 TD; +METOPROLOL SUC100 MG PO; +MICRO-K10 ME2 PO; +TYLENOL REGULA325 MG PO; +VALSARTAN160 MG PO; +WELLBUTRIN SR150 MG PO; +ZOLPIDEM TARTRAT5 MG PO
[2017-06-23 18:27] LABS: HEMATOCRIT 36.1 % (38.0-50.0); MCH 30.3 PG (29.0-34.0); MCHC 31.6 G/DL (30.0-36.0); PLATELET COUNT 274 K/uL (156-360); RBC DIS.WIDTH-CV 16.2 % (11.8-14.6); RBC DIS.WIDTH-SD 57.4 % (39-53); RED BLOOD COUNT 3.76 M/uL (4.00-5.50); WHITE BLOOD COUNT 7.3 K/uL (4.1-10.2)
[2017-06-23 18:36] LABS: CHLORIDE 113 mEq/L (99-109); SODIUM 145 mEq/L (136-147)
[2017-06-23 18:39] LABS: GLUCOSE 190 mg/dL (70-99)
[2017-06-23 18:40] LABS: ANION GAP 13 MEQ/L (2-14)
[2017-06-23 18:41] LABS: TOTAL BILIRUBIN 0.3 mg/dL (0.0-1.0)
[2017-06-23 18:42] LABS: ALKALINE PHOSPHATASE 89 IU/L (3-129); GFR ESTIMATE (CALCULATED) > 59 mL/min/
[2017-06-23 18:43] LABS: UREA NITROGEN (BUN) 26 mg/dL (9-23)
[2017-06-23 18:46] LABS: LIPASE 44 U/L (1.0-51.0)
[2017-06-23 19:44] LABS: SERUM ETHYL ALCOHOL 300 mg/dL
[2017-06-23 21:44] LABS: ADD MIUA? YES; BILIRUBIN NEGATIVE; BLOOD NEGATIVE; COLOR AMBER ((YELLOW)); GLUCOSE (STRIP) NEGATIVE; KETONES 5; LEUKOCYTES NEGATIVE; NITRITE NEGATIVE; PROTEIN (STRIP) 100; SPECIFIC GRAVITY 1.024 (1.000-1.030)
[2017-06-23 21:52] LABS: ADD MEDTOX COMMENT Y; AMPHETAMINE NEGATIVE (500 ng/mL); BARBITURATES NEGATIVE (200 ng/mL); BENZODIAZEPINES PRESUMPTIVE POSITIVE (150 ng/mL); COCAINE NEGATIVE (150 ng/mL); INTERNAL CONTROLS VALID? YES; METHADONE NEGATIVE (200 ng/mL); METHAMPHETAMINE NEGATIVE (500 ng/mL); OPIATES (MORPHINE) NEGATIVE (100 ng/mL); OXYCODONE NEGATIVE (100 ng/mL); PHENCYCLIDINE NEGATIVE (25 ng/mL); PROPOXYPHENE NEGATIVE (300 ng/mL); THC CANNABINOIDS NEGATIVE (50 ng/mL); TRICYCLIC ANTIDEPRESSANTS PRESUMPTIVE POSITIVE (300 ng/mL)
[2017-06-23 21:58] LABS: BACTERIA NONE SEEN /HPF; EPITHELIAL CELLS NONE SEEN /HPF; HYALINE CASTS 15-20 /LPF; MUCUS TRACE /LPF; RED BLOOD CELLS 0-5 /HPF (0-5); UCUL ADDED? YES
[2017-06-23 22:14] LABS: BENZODIAZEPINES QUANT VALUE 0 NG/ML; BENZODIAZEPINES, URINE SCREEN Negative (200 ng/mL)
[2017-06-23 22:35] VITALS: BP 126/85
== END 2017-06-23 22:36 | disposition home or self-care (01) ==
LOC: EME 15:43
PROVIDERS: Emergency Medicine
DX: K59.00 Constipation, unspecified (principal); F10.10 Alcohol abuse, uncomplicated; R56.9 Unspecified convulsions; Z86.73 Personal history of transient ischemic attack (TIA), and cerebral infarction without residual deficits; Z86.711 Personal history of pulmonary embolism; F17.200 Nicotine dependence, unspecified, uncomplicated
CPT/HCPCS: 71010; 80053; 81003; 83690; 84999; 85027; 86900; 86901; 87086; 99281; 99284; G0480

== ENCOUNTER 2017-06-26 12:55 | Inpatient (IN) | payer OTHER ==
[~2017-06-26] VITALS: Ht 165.1 cm; Wt 90.0 kg
[2017-06-26 14:54] LABS: EOSINOPHIL (%) 0.3 % (0-5); HEMATOCRIT 46.6 % (38.0-50.0); IMMATURE GRANULOCYTE (%) 0.4 % (0.0-0.7); IMMATURE GRANULOCYTE COUNT 0.1 K/uL; INSTRUMENT ABS NEUTROPHIL CT 9.6 K/uL; LYMPHOCYTE COUNT 1.8 K/uL (1.0-2.8); MCH 30.1 PG (29.0-34.0); MCHC 32.8 G/DL (30.0-36.0); MCV 91.7 FL (86-99); MEAN PLAT.VOLUME 9.3 uM^3 (9.0-12.4); MONOCYTE COUNT 1.1 K/uL (0-0.8); NEUTROPHIL (%) 75.9 % (45-76); NEUTROPHIL COUNT 9.6 K/uL (1.8-6.4); PLATELET COUNT 356 K/uL (156-360); PROTHROMBIN TIME 11.2 SEC (10.2-12.9); RBC DIS.WIDTH-CV 15.7 % (11.8-14.6); RBC DIS.WIDTH-SD 52.5 % (39-53); RED BLOOD COUNT 5.08 M/uL (4.00-5.50); WHITE BLOOD COUNT 12.7 K/uL (4.1-10.2)
[2017-06-26 14:57] LABS: PTT 29.8 SEC (25-37)
[2017-06-26 14:59] LABS: SODIUM 141 mEq/L (136-147)
[2017-06-26 15:00] LABS: MAGNESIUM 1.4 mg/dL (1.3-2.7)
[2017-06-26 15:01] LABS: CHLORIDE 98 mEq/L (99-109); POTASSIUM 3.1 mEq/L (3.7-5.4)
[2017-06-26 15:03] LABS: ANION GAP 23 MEQ/L (2-14); GLUCOSE 114 mg/dL (70-99)
[2017-06-26 15:06] LABS: ALKALINE PHOSPHATASE 117 IU/L (3-129); GFR ESTIMATE (CALCULATED) 39 mL/min/; TOTAL BILIRUBIN 0.8 mg/dL (0.0-1.0)
[2017-06-26 15:07] LABS: DIRECT BILIRUBIN 0.4 mg/dL (0.0-0.3); UREA NITROGEN (BUN) 16 mg/dL (9-23)
[2017-06-26 15:09] LABS: LIPASE 14 U/L (1.0-51.0)
[2017-06-26 15:15] LABS: TROP-I INTERPRETATION NEGATIVE
[2017-06-26 17:26] LABS: ADD MIUA? YES; BILIRUBIN NEGATIVE; BLOOD SMALL; COLOR YELLOW ((YELLOW)); GLUCOSE (STRIP) NEGATIVE; KETONES 5; LEUKOCYTES NEGATIVE; NITRITE NEGATIVE; PROTEIN (STRIP) 100; SPECIFIC GRAVITY 1.024 (1.000-1.030); UROBILINOGEN 0.2 MG/DL (0.2-1.0)
[2017-06-26 17:43] LABS: BACTERIA NONE SEEN /HPF; EPITHELIAL CELLS NONE SEEN /HPF; MUCUS TRACE /LPF; RED BLOOD CELLS 0-5 /HPF (0-5); WHITE BLOOD CELLS 0-5 /HPF (0-5)
[2017-06-26 17:55] LABS: ADD MEDTOX COMMENT Y; AMPHETAMINE NEGATIVE (500 ng/mL); BARBITURATES NEGATIVE (200 ng/mL); BENZODIAZEPINES PRESUMPTIVE POSITIVE (150 ng/mL); COCAINE NEGATIVE (150 ng/mL); INTERNAL CONTROLS VALID? YES; METHADONE NEGATIVE (200 ng/mL); METHAMPHETAMINE NEGATIVE (500 ng/mL); OPIATES (MORPHINE) NEGATIVE (100 ng/mL); OXYCODONE NEGATIVE (100 ng/mL); PHENCYCLIDINE NEGATIVE (25 ng/mL); PROPOXYPHENE NEGATIVE (300 ng/mL); THC CANNABINOIDS NEGATIVE (50 ng/mL); TRICYCLIC ANTIDEPRESSANTS PRESUMPTIVE POSITIVE (300 ng/mL)
[2017-06-26 18:36] LABS: BENZODIAZEPINES, URINE SCREEN POSITIVE (200 ng/mL)
[2017-06-26 19:30] VITALS: BP 167/99
[2017-06-26 19:31] VITALS: BP 167/99
[2017-06-26 20:00] VITALS: BP 144/94
[2017-06-26 20:56] LABS: METH RESISTANT S AUREUS PCR NEGATIVE (NEGATIVE)
[2017-06-26 20:57] LABS: PROBE CHECK PASS; SPECIMEN PROCESSING CONTROL PASS
[2017-06-26 21:00] VITALS: BP 166/113
[2017-06-26 22:00] VITALS: BP 141/91
[2017-06-26 23:00] VITALS: BP 159/99
[2017-06-26 23:46] LABS: AMYLASE 39 IU/L (1-118); SODIUM 138 mEq/L (136-147)
[2017-06-26 23:47] LABS: CHLORIDE 110 mEq/L (99-109); MAGNESIUM 1.2 mg/dL (1.3-2.7); POTASSIUM 3.9 mEq/L (3.7-5.4)
[2017-06-26 23:49] LABS: ANION GAP 13 MEQ/L (2-14)
[2017-06-26 23:53] LABS: UREA NITROGEN (BUN) 14 mg/dL (9-23)
[2017-06-26 23:55] LABS: GLUCOSE 81 mg/dL (70-99); LIPASE 45 U/L (1.0-51.0)
[2017-06-27] VITALS (14 sets, daily range): BP systolic 129–187; BP diastolic 82–149
[2017-06-27 00:21] LABS: GFR ESTIMATE (CALCULATED) > 59 mL/min/
[2017-06-27] MEDS ORDERED: BUSPAR5 MG PO (02:57)
[2017-06-27] MEDS ORDERED: TOPROL XL100 MG PO (02:58)
[2017-06-27] MEDS ORDERED: CATAPRES-TTS 21 EACH TD (02:58)
[2017-06-27] MEDS ORDERED: WELLBUTRIN SR150 MG PO (02:58)
[2017-06-27] MEDS ORDERED: APRESOLINE50 MG PO (02:59)
[2017-06-27] MEDS ORDERED: COMBIVENT RESPIM4 GM IH (02:59)
[2017-06-27] MEDS ORDERED: LISINOPRIL20 MG PO (02:59)
[2017-06-27] MEDS ORDERED: DOXEPIN HCL100 MG PO (03:00)
[2017-06-27] MEDS ORDERED: SINEQUAN25 MG PO (03:00)
[2017-06-27 06:03] LABS: PROTHROMBIN TIME 11.5 SEC (10.2-12.9)
[2017-06-27 06:06] LABS: PTT 71.1 SEC (25-37)
[2017-06-27 06:33] LABS: ALKALINE PHOSPHATASE 78 IU/L (3-129); ANION GAP 10 MEQ/L (2-14); CHLORIDE 109 MEQ/L (99-109); GFR ESTIMATE (CALCULATED) > 59 mL/min/; GLUCOSE 67 mg/dL (70-99); POTASSIUM 3.8 MEQ/L (3.7-5.4); SAMPLE HEMOLYSIS CHECK 0; SAMPLE ICTERIC CHECK 0; SAMPLE LIPEMIA CHECK 0; SODIUM 140 MEQ/L (136-147); TOTAL BILIRUBIN 0.9 MG/DL (0.0-1.0); UREA NITROGEN (BUN) 14 mg/dL (9-23)
[2017-06-27 06:54] LABS: MCH 30.4 PG (29.0-34.0); MCV 95.1 FL (86-99); RBC DIS.WIDTH-CV 15.9 % (11.8-14.6); RBC DIS.WIDTH-SD 56.2 % (39-53); WHITE BLOOD COUNT 6.4 K/uL (4.1-10.2)
[2017-06-27 07:02] LABS: MEAN PLAT.VOLUME 9.3 uM^3 (9.0-12.4); PLAT.SUFFICIENCY ADEQUATE
[2017-06-27 07:18] LABS: PLATELET COUNT 191 K/uL (156-360); RED BLOOD COUNT 3.68 M/uL (4.00-5.50)
[2017-06-27] MEDS ORDERED: TIMOPTIC-0100 DROP/5 BOTH EYES (15:45)
[2017-06-27] MEDS ORDERED: FOLIC ACID1 MG PO (15:46)
[2017-06-27] MEDS ORDERED: B-1100 MG PO (15:46)
[2017-06-27] MEDS ORDERED: VENTOLIN HFA18 GM IH (15:48)
[2017-06-27] MEDS ORDERED: INCRUSE ELLI62.5 MCG IH (15:49)
[2017-06-27] MEDS ORDERED: XANAX0.25 MG PO (15:50)
[2017-06-27] MEDS ORDERED: DIOVAN160 MG PO (15:50)
[2017-06-27] MEDS ORDERED: TYLENOL REGULA325 MG PO (15:52)
[2017-06-27] MEDS ORDERED: AMBIEN5 MG PO (15:53)
[2017-06-28 07:34] LABS: EOSINOPHIL (%) 4.6 % (0-5); EOSINOPHIL COUNT 0.3 K/uL (0-0.3); HEMATOCRIT 37.5 % (38.0-50.0); IMMATURE GRANULOCYTE (%) 0.2 % (0.0-0.7); INSTRUMENT ABS NEUTROPHIL CT 3.5 K/uL; LYMPHOCYTE COUNT 1.3 K/uL (1.0-2.8); MCH 29.6 PG (29.0-34.0); MCHC 31.5 G/DL (30.0-36.0); MCV 94.2 FL (86-99); MEAN PLAT.VOLUME 9.2 uM^3 (9.0-12.4); MONOCYTE COUNT 0.8 K/uL (0-0.8); NEUTROPHIL (%) 59.7 % (45-76); NEUTROPHIL COUNT 3.5 K/uL (1.8-6.4); PLATELET COUNT 207 K/uL (156-360); RBC DIS.WIDTH-CV 15.6 % (11.8-14.6); RBC DIS.WIDTH-SD 53.5 % (39-53); RED BLOOD COUNT 3.98 M/uL (4.00-5.50); WHITE BLOOD COUNT 5.9 K/uL (4.1-10.2)
[2017-06-28 08:15] VITALS: BP 189/94
[2017-06-28 16:39] VITALS: BP 189/104
[2017-06-28 17:39] VITALS: BP 178/100
[2017-06-29 00:34] VITALS: BP 173/110
== END 2017-06-29 03:00 | disposition left against medical advice (07) | DRG 438 ==
LOC: EME 12:55 → 4WEST 18:13 → EDOF 18:13 → ENRESERV 18:14 → 4WEST 19:24 → ENRESERV 06-27 11:46 → 5EAST 06-27 14:13
PROVIDERS: Emergency Medicine; Internal Medicine Critical Care Medicine; Specialist
PROC: 05HM33Z Insertion of Infusion Device into Right Internal Jugular Vein, Percutaneous Approach (ICD-10-PCS; principal; 2017-06-26)
DX: K85.90 Acute pancreatitis without necrosis or infection, unspecified (principal); I26.99 Other pulmonary embolism without acute cor pulmonale; F10.231 Alcohol dependence with withdrawal delirium; R57.9 Shock, unspecified; F11.20 Opioid dependence, uncomplicated; F17.200 Nicotine dependence, unspecified, uncomplicated; F41.8 Other specified anxiety disorders; I47.1 Supraventricular tachycardia; E83.42 Hypomagnesemia; G40.409 Other generalized epilepsy and epileptic syndromes, not intractable, without status epilepticus; I48.91 Unspecified atrial fibrillation; J44.9 Chronic obstructive pulmonary disease, unspecified; J93.9 Pneumothorax, unspecified; K86.0 Alcohol-induced chronic pancreatitis; J32.0 Chronic maxillary sinusitis; I25.10 Atherosclerotic heart disease of native coronary artery without angina pectoris; I10 Essential (primary) hypertension; F31.9 Bipolar disorder, unspecified; E87.6 Hypokalemia; K44.9 Diaphragmatic hernia without obstruction or gangrene; F19.10 Other psychoactive substance abuse, uncomplicated; E78.5 Hyperlipidemia, unspecified; Z86.73 Personal history of transient ischemic attack (TIA), and cerebral infarction without residual deficits; Z86.711 Personal history of pulmonary embolism; Z91.14 Patient's other noncompliance with medication regimen
CPT/HCPCS: 70450; 71010; 71275; 74000; 80048; 80048 91; 80053; 80076; 81003; 82150; 83605; 83690; 83735; 84484; 84999; 85025; 85027; 85379; 85610; 85730; 87040; 87086; 87641; 93005; 93970; 94640; 94640 76; 94799; 99202; 99281; 99285; C1751; J0360; J0692; J1200; J2060; J2405; J3411; J3475; J7030; J7050

== ENCOUNTER 2017-06-29 14:15 | Emergency (ER) | payer OTHER ==
[~2017-06-29] VITALS: Ht 177.8 cm; Wt 77.1 kg
[~2017-06-29 14:15] MED LIST changes: +AMBIEN5 MG PO; +B-1100 MG PO; +BUSPAR5 MG PO; +CATAPRES-TTS 21 EACH TD; +DIOVAN160 MG PO; +SINEQUAN25 MG PO; +TIMOPTIC-0100 DROP/5 BOTH EYES; +TOPROL XL100 MG PO; +XANAX0.25 MG PO
[2017-06-29 16:25] LABS: ADD MEDTOX COMMENT Y; AMPHETAMINE NEGATIVE (500 ng/mL); BARBITURATES NEGATIVE (200 ng/mL); BENZODIAZEPINES PRESUMPTIVE POSITIVE (150 ng/mL); COCAINE NEGATIVE (150 ng/mL); INTERNAL CONTROLS VALID? YES; METHADONE NEGATIVE (200 ng/mL); METHAMPHETAMINE NEGATIVE (500 ng/mL); OPIATES (MORPHINE) NEGATIVE (100 ng/mL); OXYCODONE PRESUMPTIVE POSITIVE (100 ng/mL); PHENCYCLIDINE NEGATIVE (25 ng/mL); PROPOXYPHENE NEGATIVE (300 ng/mL); THC CANNABINOIDS NEGATIVE (50 ng/mL); TRICYCLIC ANTIDEPRESSANTS PRESUMPTIVE POSITIVE (300 ng/mL)
[2017-06-29 16:28] LABS: HEMATOCRIT 37.9 % (38.0-50.0); MCHC 32.2 G/DL (30.0-36.0); MCV 93.1 FL (86-99); MEAN PLAT.VOLUME 9.4 uM^3 (9.0-12.4); PLATELET COUNT 192 K/uL (156-360); RBC DIS.WIDTH-CV 15.8 % (11.8-14.6); RBC DIS.WIDTH-SD 53.5 % (39-53); RED BLOOD COUNT 4.07 M/uL (4.00-5.50); WHITE BLOOD COUNT 7.4 K/uL (4.1-10.2)
[2017-06-29 16:40] LABS: CHLORIDE 109 mEq/L (99-109); POTASSIUM 3.3 mEq/L (3.7-5.4); SODIUM 144 mEq/L (136-147)
[2017-06-29 16:43] LABS: ANION GAP 16 MEQ/L (2-14); GLUCOSE 103 mg/dL (70-99)
[2017-06-29 16:44] LABS: SERUM ETHYL ALCOHOL 235 mg/dL
[2017-06-29 16:45] LABS: GFR ESTIMATE (CALCULATED) 56 mL/min/
[2017-06-29 16:46] LABS: UREA NITROGEN (BUN) 14 mg/dL (9-23)
[2017-06-29 16:59] LABS: BENZODIAZEPINES, URINE SCREEN POSITIVE (200 ng/mL)
[2017-06-29 23:35] VITALS: BP 112/72
== END 2017-06-29 23:36 | disposition home or self-care (01) ==
LOC: EME → EDBD 14:15 → EME 23:36
PROVIDERS: Emergency Medicine
DX: F10.129 Alcohol abuse with intoxication, unspecified (principal); Y90.7 Blood alcohol level of 200-239 mg/100 ml; I10 Essential (primary) hypertension; J44.9 Chronic obstructive pulmonary disease, unspecified; Z86.73 Personal history of transient ischemic attack (TIA), and cerebral infarction without residual deficits; Z86.711 Personal history of pulmonary embolism; F17.200 Nicotine dependence, unspecified, uncomplicated
CPT/HCPCS: 73610; 80048; 84999; 85027; 99281; 99284; G0480; J7030

== ENCOUNTER 2017-07-01 10:19 | Inpatient (IN) | payer OTHER ==
[~2017-07-01] VITALS: Ht 162.6 cm; Wt 84.2 kg
[2017-07-01 11:14] LABS: ADD MIUA? YES; BILIRUBIN NEGATIVE; BLOOD SMALL; COLOR YELLOW ((YELLOW)); GLUCOSE (STRIP) NEGATIVE; KETONES 5; LEUKOCYTES NEGATIVE; NITRITE NEGATIVE; PROTEIN (STRIP) NEGATIVE; UROBILINOGEN 0.2 MG/DL (0.2-1.0)
[2017-07-01 11:17] LABS: BACTERIA NONE SEEN /HPF; EPITHELIAL CELLS RARE /HPF; HYALINE CASTS 30-40 /LPF; MUCUS TRACE /LPF; RED BLOOD CELLS 0-5 /HPF (0-5); WHITE BLOOD CELLS 0-5 /HPF (0-5)
[2017-07-01 11:25] LABS: ADD MEDTOX COMMENT Y; AMPHETAMINE NEGATIVE (500 ng/mL); BARBITURATES NEGATIVE (200 ng/mL); BENZODIAZEPINES PRESUMPTIVE POSITIVE (150 ng/mL); COCAINE NEGATIVE (150 ng/mL); INTERNAL CONTROLS VALID? YES; METHADONE NEGATIVE (200 ng/mL); METHAMPHETAMINE NEGATIVE (500 ng/mL); OPIATES (MORPHINE) NEGATIVE (100 ng/mL); OXYCODONE NEGATIVE (100 ng/mL); PHENCYCLIDINE NEGATIVE (25 ng/mL); PROPOXYPHENE NEGATIVE (300 ng/mL); THC CANNABINOIDS NEGATIVE (50 ng/mL); TRICYCLIC ANTIDEPRESSANTS PRESUMPTIVE POSITIVE (300 ng/mL)
[2017-07-01 11:32] LABS: CHLORIDE 108 mEq/L (99-109); SODIUM 146 mEq/L (136-147)
[2017-07-01 11:33] LABS: POTASSIUM 4.3 mEq/L (3.7-5.4)
[2017-07-01 11:34] LABS: GLUCOSE 60 mg/dL (70-99)
[2017-07-01 11:35] LABS: ANION GAP 21 MEQ/L (2-14)
[2017-07-01 11:37] LABS: SERUM ETHYL ALCOHOL 277 mg/dL
[2017-07-01 11:38] LABS: GFR ESTIMATE (CALCULATED) > 59 mL/min/
[2017-07-01 11:39] LABS: UREA NITROGEN (BUN) 17 mg/dL (9-23)
[2017-07-01 12:01] LABS: BENZODIAZEPINES, URINE SCREEN POSITIVE (200 ng/mL)
[2017-07-01 15:53] LABS: BASOPHIL COUNT 0.1 K/uL (0-0.1); EOSINOPHIL (%) 1.5 % (0-5); EOSINOPHIL COUNT 0.1 K/uL (0-0.3); HEMATOCRIT 41.8 % (38.0-50.0); IMMATURE GRANULOCYTE (%) 0.3 % (0.0-0.7); INSTRUMENT ABS NEUTROPHIL CT 3.7 K/uL; LYMPHOCYTE COUNT 2.8 K/uL (1.0-2.8); MCH 30.3 PG (29.0-34.0); MCHC 32.5 G/DL (30.0-36.0); MCV 93.1 FL (86-99); MONOCYTE (%) 7.7 % (3-12); MONOCYTE COUNT 0.6 K/uL (0-0.8); NEUTROPHIL (%) 50.9 % (45-76); NEUTROPHIL COUNT 3.7 K/uL (1.8-6.4); RBC DIS.WIDTH-CV 16.4 % (11.8-14.6); RBC DIS.WIDTH-SD 56.2 % (39-53); RED BLOOD COUNT 4.49 M/uL (4.00-5.50); WHITE BLOOD COUNT 7.3 K/uL (4.1-10.2)
[2017-07-01 16:38] LABS: MEAN PLAT.VOLUME 10.6 uM^3 (9.0-12.4); PLAT.SUFFICIENCY ADEQUATE
[2017-07-01 16:49] LABS: PLATELET COUNT 264 K/uL (156-360)
[2017-07-01] MEDS ORDERED: CLONIDINE HCL0.2 MG PO (22:21)
[2017-07-01] MEDS ORDERED: BUSPAR30 MG PO (22:22)
[2017-07-01] MEDS ORDERED: DOXEPIN HCL100 MG PO (22:24)
[2017-07-01] MEDS ORDERED: DOXEPIN HCL25 MG PO (22:26)
[2017-07-01] MEDS ORDERED: TRIAZOLAM0.25 MG PO (22:27)
[2017-07-01 23:10] LABS: EOSINOPHIL (%) 1.9 % (0-5); EOSINOPHIL COUNT 0.2 K/uL (0-0.3); HEMATOCRIT 35.7 % (38.0-50.0); IMMATURE GRANULOCYTE (%) 0.3 % (0.0-0.7); INSTRUMENT ABS NEUTROPHIL CT 5.3 K/uL; LYMPHOCYTE COUNT 2.2 K/uL (1.0-2.8); MCH 30.4 PG (29.0-34.0); MCHC 33.1 G/DL (30.0-36.0); MEAN PLAT.VOLUME 8.7 uM^3 (9.0-12.4); MONOCYTE COUNT 1.4 K/uL (0-0.8); NEUTROPHIL (%) 58.5 % (45-76); NEUTROPHIL COUNT 5.3 K/uL (1.8-6.4); PLATELET COUNT 259 K/uL (156-360); RBC DIS.WIDTH-SD 54.4 % (39-53); RED BLOOD COUNT 3.88 M/uL (4.00-5.50)
[2017-07-01 23:19] LABS: CHLORIDE 107 mEq/L (99-109); SODIUM 141 mEq/L (136-147)
[2017-07-01 23:23] LABS: ANION GAP 10 MEQ/L (2-14); TOTAL BILIRUBIN 0.7 mg/dL (0.0-1.0)
[2017-07-01 23:25] LABS: GFR ESTIMATE (CALCULATED) > 59 mL/min/
[2017-07-01 23:26] LABS: UREA NITROGEN (BUN) 16 mg/dL (9-23)
[2017-07-01 23:32] LABS: GLUCOSE 131 mg/dL (70-99); POTASSIUM 3.2 mEq/L (3.7-5.4)
[2017-07-01 23:33] LABS: ALKALINE PHOSPHATASE 73 IU/L (3-129)
[2017-07-02] VITALS: BP 96/54
[2017-07-02 00:10] VITALS: BP 138/107; BP 139/107
[2017-07-02 07:20] VITALS: BP 135/105
[2017-07-02 09:28] LABS: ANION GAP 12 MEQ/L (2-14); CHLORIDE 109 MEQ/L (99-109); GFR ESTIMATE (CALCULATED) > 59 mL/min/; GLUCOSE 111 mg/dL (70-99); MAGNESIUM 2.1 mg/dl (1.3-2.7); POTASSIUM 3.9 MEQ/L (3.7-5.4); SAMPLE HEMOLYSIS CHECK 0; SAMPLE ICTERIC CHECK 0; SAMPLE LIPEMIA CHECK 0; SODIUM 142 MEQ/L (136-147); UREA NITROGEN (BUN) 12 mg/dL (9-23)
[2017-07-02 12:30] VITALS: BP 158/89
[2017-07-02 20:11] VITALS: BP 179/98
[2017-07-03] VITALS (8 sets, daily range): BP systolic 127–196; BP diastolic 76–120
[2017-07-04 08:20] VITALS: BP 188/118
[2017-07-04 13:15] VITALS: BP 180/119
[2017-07-04 17:55] VITALS: BP 182/98
[2017-07-04 18:03] LABS: INTER. NORMALIZED RATIO 1.1; PROTHROMBIN TIME 12.4 SEC (10.2-12.9)
[2017-07-04 19:20] VITALS: BP 170/113
[2017-07-04 22:52] VITALS: BP 162/85
[2017-07-05 04:08] VITALS: BP 152/89
[2017-07-05 07:32] LABS: PROTHROMBIN TIME 11.5 SEC (10.2-12.9)
[2017-07-05 08:11] VITALS: BP 184/110
[2017-07-05 12:07] VITALS: BP 180/102
[2017-07-05 12:27] VITALS: BP 162/90
[2017-07-05 16:23] VITALS: BP 155/97
[2017-07-05 23:27] VITALS: BP 144/70
[2017-07-06 08:13] LABS: PROTHROMBIN TIME 11.5 SEC (10.2-12.9)
[2017-07-06 08:22] VITALS: BP 160/110
[2017-07-06 10:22] VITALS: BP 110/58
[2017-07-06 17:11] VITALS: BP 180/90
[2017-07-06 23:45] VITALS: BP 98/60
[2017-07-07 07:11] LABS: INTER. NORMALIZED RATIO 1.2
[2017-07-07 08:15] VITALS: BP 190/95
[2017-07-07 09:58] LABS: HEMATOCRIT 39.3 % (38.0-50.0); MCHC 32.6 G/DL (30.0-36.0); MEAN PLAT.VOLUME 9.7 uM^3 (9.0-12.4); RBC DIS.WIDTH-CV 16.5 % (11.8-14.6); RBC DIS.WIDTH-SD 59.2 % (39-53); WHITE BLOOD COUNT 8.3 K/uL (4.1-10.2)
[2017-07-07 10:06] LABS: ANION GAP 9 MEQ/L (2-14); CHLORIDE 107 MEQ/L (99-109); GFR ESTIMATE (CALCULATED) > 59 mL/min/; GLUCOSE 117 mg/dL (70-99); POTASSIUM 4.3 MEQ/L (3.7-5.4); SAMPLE HEMOLYSIS CHECK 0; SAMPLE ICTERIC CHECK 0; SAMPLE LIPEMIA CHECK 0; SODIUM 141 MEQ/L (136-147)
[2017-07-07 10:07] LABS: UREA NITROGEN (BUN) 28 mg/dL (9-23)
[2017-07-07 10:15] LABS: MCV 98.3 FL (86-99); PLATELET COUNT 353 K/uL (156-360)
[2017-07-07 11:11] VITALS: BP 151/94
[2017-07-07 15:43] VITALS: BP 148/96
[2017-07-07 17:24] VITALS: BP 166/96
[2017-07-07 23:49] VITALS: BP 165/75
[2017-07-08 07:07] LABS: INTER. NORMALIZED RATIO 1.7
[2017-07-08 07:26] LABS: PROTHROMBIN TIME 19.4 SEC (10.2-12.9)
[2017-07-08 07:51] VITALS: BP 167/109
[2017-07-08 11:30] VITALS: BP 154/80
[2017-07-08 15:45] VITALS: BP 168/112
[2017-07-08 18:41] VITALS: BP 164/82
[2017-07-09 00:34] VITALS: BP 125/80
[2017-07-09 06:56] LABS: INTER. NORMALIZED RATIO 1.8; PROTHROMBIN TIME 19.7 SEC (10.2-12.9)
[2017-07-09 07:58] VITALS: BP 126/84
[2017-07-09 15:33] VITALS: BP 132/84
[2017-07-10 06:54] LABS: INTER. NORMALIZED RATIO 1.9; PROTHROMBIN TIME 21.1 SEC (10.2-12.9)
[2017-07-10 08:30] VITALS: BP 172/106
[2017-07-10] MEDS ORDERED: WELLBUTRIN SR150 MG PO (11:39)
[2017-07-10] MEDS ORDERED: BUSPAR5 MG PO (15:38)
[2017-07-10 16:24] VITALS: BP 172/102
[2017-07-10 18:21] VITALS: BP 138/78
[2017-07-10 23:25] VITALS: BP 124/80
[2017-07-11 06:53] LABS: INTER. NORMALIZED RATIO 2.5; PROTHROMBIN TIME 28.1 SEC (10.2-12.9)
[2017-07-11 08:16] VITALS: BP 188/110
[2017-07-11 08:41] LABS: HEMATOCRIT 37.9 % (38.0-50.0); MCH 30.7 PG (29.0-34.0); MCHC 31.7 G/DL (30.0-36.0); MCV 96.9 FL (86-99); MEAN PLAT.VOLUME 9.3 uM^3 (9.0-12.4); PLATELET COUNT 331 K/uL (156-360); RBC DIS.WIDTH-CV 15.9 % (11.8-14.6); RBC DIS.WIDTH-SD 56.6 % (39-53); RED BLOOD COUNT 3.91 M/uL (4.00-5.50); WHITE BLOOD COUNT 8.6 K/uL (4.1-10.2)
[2017-07-11 09:08] LABS: ANION GAP 9 MEQ/L (2-14); CHLORIDE 109 MEQ/L (99-109); GFR ESTIMATE (CALCULATED) > 59 mL/min/; GLUCOSE 99 mg/dL (70-99); SAMPLE HEMOLYSIS CHECK 0; SAMPLE ICTERIC CHECK 0; SAMPLE LIPEMIA CHECK 0; SODIUM 141 MEQ/L (136-147); UREA NITROGEN (BUN) 24 mg/dL (9-23)
[2017-07-11 10:00] VITALS: BP 148/92
[2017-07-11] MEDS ORDERED: NICOTINE PATCH1 EAC2 TD (11:55)
[2017-07-11] MEDS ORDERED: CLONIDINE HCL0.3 MG PO (11:55)
[2017-07-11] MEDS ORDERED: FOLIC ACID1 MG PO (11:56)
[2017-07-11] MEDS ORDERED: Thiamine,Vitamin B1 PO (11:57)
[2017-07-11] MEDS ORDERED: NALTREXONE HCL50 MG PO (12:06)
[2017-07-11] MEDS ORDERED: COUMADIN1 MG PO (12:12)
== END 2017-07-11 15:28 | disposition home or self-care (01) | DRG 176 ==
LOC: EME 10:19 → EDOF 22:23 → 4EAST 22:23 → ENRESERV 22:24 → 4EAST 07-02 00:04 → ENRESERV 07-04 20:17 → 3EAST 07-04 22:41
PROVIDERS: Emergency Medicine; Hospitalist; Internal Medicine; Physician Assistant
PROC: HZ2ZZZZ Detoxification Services for Substance Abuse Treatment (ICD-10-PCS; principal; 2017-07-01)
DX: I26.99 Other pulmonary embolism without acute cor pulmonale (principal); F10.239 Alcohol dependence with withdrawal, unspecified; E86.0 Dehydration; E87.6 Hypokalemia; J44.1 Chronic obstructive pulmonary disease with (acute) exacerbation; K74.60 Unspecified cirrhosis of liver; F17.210 Nicotine dependence, cigarettes, uncomplicated; F11.10 Opioid abuse, uncomplicated; F19.10 Other psychoactive substance abuse, uncomplicated; G40.909 Epilepsy, unspecified, not intractable, without status epilepticus; F32.9 Major depressive disorder, single episode, unspecified; F41.9 Anxiety disorder, unspecified; I10 Essential (primary) hypertension; I25.10 Atherosclerotic heart disease of native coronary artery without angina pectoris; Y90.8 Blood alcohol level of 240 mg/100 ml or more; G62.9 Polyneuropathy, unspecified; I95.9 Hypotension, unspecified; R19.7 Diarrhea, unspecified; Z86.73 Personal history of transient ischemic attack (TIA), and cerebral infarction without residual deficits; Z91.14 Patient's other noncompliance with medication regimen; Z91.81 History of falling; Z86.711 Personal history of pulmonary embolism; Z86.718 Personal history of other venous thrombosis and embolism
CPT/HCPCS: 70450; 71010; 73610; 80048; 80053; 81003; 83735; 84999; 85025; 85025 91; 85027; 85610; 87493; 93005; 94640; 94640 76; 94799; 97530 GO; 99202; 99281; 99284; 99285; C1753; G0480; J1650; J2060; J2405; J3360; J3411; J3475; J7030

== ENCOUNTER 2017-07-21 23:30 | Emergency (ER) | payer OTHER ==
[~2017-07-21] VITALS: Ht 172.7 cm; Wt 84.0 kg
[~2017-07-21 23:30] MED LIST changes: +CLONIDINE HCL0.3 MG PO; +COUMADIN1 MG PO; +NALTREXONE HCL50 MG PO; -TIMOPTIC-0100 DROP/5 BOTH EYES; +Thiamine,Vitamin B1 PO
[2017-07-21] MEDS ORDERED: KEFLEX500 MG PO (23:42)
[2017-07-22 00:42] LABS: BASOPHIL COUNT 0.1 K/uL (0-0.1); EOSINOPHIL (%) 1.7 % (0-5); EOSINOPHIL COUNT 0.2 K/uL (0-0.3); HEMATOCRIT 42.8 % (38.0-50.0); IMMATURE GRANULOCYTE (%) 0.2 % (0.0-0.7); INSTRUMENT ABS NEUTROPHIL CT 5.7 K/uL; LYMPHOCYTE COUNT 2.3 K/uL (1.0-2.8); MCH 31.2 PG (29.0-34.0); MCHC 33.4 G/DL (30.0-36.0); MCV 93.4 FL (86-99); MEAN PLAT.VOLUME 8.9 uM^3 (9.0-12.4); MONOCYTE COUNT 0.7 K/uL (0-0.8); NEUTROPHIL COUNT 5.7 K/uL (1.8-6.4); PLATELET COUNT 376 K/uL (156-360); RBC DIS.WIDTH-CV 16.8 % (11.8-14.6); RBC DIS.WIDTH-SD 57.5 % (39-53); RED BLOOD COUNT 4.58 M/uL (4.00-5.50); WHITE BLOOD COUNT 8.9 K/uL (4.1-10.2)
[2017-07-22 00:58] LABS: CHLORIDE 107 mEq/L (99-109); POTASSIUM 3.9 mEq/L (3.7-5.4); SODIUM 144 mEq/L (136-147)
[2017-07-22 00:59] LABS: GLUCOSE 100 mg/dL (70-99)
[2017-07-22 01:01] LABS: ANION GAP 21 MEQ/L (2-14)
[2017-07-22 01:03] LABS: GFR ESTIMATE (CALCULATED) > 59 mL/min/
[2017-07-22 01:04] LABS: UREA NITROGEN (BUN) 21 mg/dL (9-23)
[2017-07-22 01:23] LABS: TROP-I INTERPRETATION NEGATIVE; TROPONIN-I 0.03 ng/mL (0.0-0.30)
[2017-07-22 03:26] LABS: TROP-I INTERPRETATION NEGATIVE; TROPONIN-I 0.03 ng/mL (0.0-0.30)
[2017-07-22] MEDS ORDERED: COLACE100 MG PO ×2 (03:41→14:08)
[2017-07-22 04:59] VITALS: BP 157/89
[2017-07-22] MEDS ORDERED: COUMADIN1 MG PO (14:49)
[2017-07-22] MEDS ORDERED: CATAPRES0.3 MG PO (14:51)
[2017-07-22] MEDS ORDERED: NALTREXONE HCL50 MG PO (14:52)
[2017-07-22] MEDS ORDERED: PAIN RELIEF325 M1 PO (14:56)
== END 2017-07-22 04:45 | disposition home or self-care (01) ==
LOC: EME → EDBD 23:30 → EME 23:30
PROVIDERS: Emergency Medicine
DX: K59.00 Constipation, unspecified (principal); R07.9 Chest pain, unspecified; K44.9 Diaphragmatic hernia without obstruction or gangrene; K76.0 Fatty (change of) liver, not elsewhere classified; I10 Essential (primary) hypertension; J44.9 Chronic obstructive pulmonary disease, unspecified; Z86.711 Personal history of pulmonary embolism; F17.200 Nicotine dependence, unspecified, uncomplicated
CPT/HCPCS: 71010; 74176; 80048; 84484; 85025; 93005; 94640; 99281; 99284

== ENCOUNTER 2017-07-22 09:36 | Observation (INO) | payer OTHER ==
[~2017-07-22] VITALS: Ht 167.6 cm; Wt 80.3 kg
[~2017-07-22 09:36] MED LIST changes: +COLACE100 MG PO; +KEFLEX500 MG PO
[2017-07-22 10:06] LABS: EOSINOPHIL (%) 0.1 % (0-5); HEMATOCRIT 40.4 % (38.0-50.0); IMMATURE GRANULOCYTE (%) 0.3 % (0.0-0.7); INSTRUMENT ABS NEUTROPHIL CT 8.2 K/uL; LYMPHOCYTE COUNT 0.9 K/uL (1.0-2.8); MCH 31.3 PG (29.0-34.0); MCHC 33.4 G/DL (30.0-36.0); MCV 93.5 FL (86-99); MONOCYTE (%) 7.4 % (3-12); MONOCYTE COUNT 0.7 K/uL (0-0.8); NEUTROPHIL (%) 82.9 % (45-76); NEUTROPHIL COUNT 8.2 K/uL (1.8-6.4); RBC DIS.WIDTH-CV 16.8 % (11.8-14.6); RBC DIS.WIDTH-SD 56.8 % (39-53); RED BLOOD COUNT 4.32 M/uL (4.00-5.50); WHITE BLOOD COUNT 9.9 K/uL (4.1-10.2)
[2017-07-22 10:25] LABS: CHLORIDE 102 mEq/L (99-109); SODIUM 140 mEq/L (136-147)
[2017-07-22 10:27] LABS: GLUCOSE 85 mg/dL (70-99)
[2017-07-22 10:28] LABS: ANION GAP 25 MEQ/L (2-14)
[2017-07-22 10:30] LABS: GFR ESTIMATE (CALCULATED) > 59 mL/min/; SERUM ETHYL ALCOHOL 59 mg/dL
[2017-07-22 10:31] LABS: UREA NITROGEN (BUN) 21 mg/dL (9-23)
[2017-07-22 10:49] LABS: PLAT.SUFFICIENCY ADEQUATE; PLATELET CLUMPS PRESENT - PLATELET COUNT APPEARS ADQ.; PLATELET COUNT UNABLE TO REPORT K/uL (156-360)
[2017-07-22 12:24] LABS: ADD MIUA? NO; BILIRUBIN NEGATIVE; BLOOD NEGATIVE; COLOR YELLOW ((YELLOW)); GLUCOSE (STRIP) NEGATIVE; KETONES 20; LEUKOCYTES NEGATIVE; NITRITE NEGATIVE; PROTEIN (STRIP) 30; UROBILINOGEN 0.2 MG/DL (0.2-1.0)
[2017-07-22 12:41] LABS: AMPHETAMINE NEGATIVE (500 ng/mL); BARBITURATES NEGATIVE (200 ng/mL); BENZODIAZEPINES PRESUMPTIVE POSITIVE (150 ng/mL); COCAINE NEGATIVE (150 ng/mL); INTERNAL CONTROLS VALID? YES; METHADONE NEGATIVE (200 ng/mL); METHAMPHETAMINE NEGATIVE (500 ng/mL); OPIATES (MORPHINE) NEGATIVE (100 ng/mL); OXYCODONE NEGATIVE (100 ng/mL); PHENCYCLIDINE NEGATIVE (25 ng/mL); PROPOXYPHENE NEGATIVE (300 ng/mL); THC CANNABINOIDS NEGATIVE (50 ng/mL); TRICYCLIC ANTIDEPRESSANTS PRESUMPTIVE POSITIVE (300 ng/mL)
[2017-07-22 12:42] LABS: ADD MEDTOX COMMENT Y
[2017-07-22 13:48] LABS: BENZODIAZEPINES, URINE SCREEN POSITIVE (200 ng/mL)
[2017-07-22] MEDS ORDERED: COLACE100 MG PO (14:08)
[2017-07-22 14:43] LABS: CHLORIDE 103 mEq/L (99-109); POTASSIUM 3.8 mEq/L (3.7-5.4); SODIUM 139 mEq/L (136-147)
[2017-07-22 14:44] LABS: MAGNESIUM 1.7 mg/dL (1.3-2.7)
[2017-07-22 14:46] LABS: ANION GAP 15 MEQ/L (2-14)
[2017-07-22 14:49] LABS: GFR ESTIMATE (CALCULATED) > 59 mL/min/; INTER. NORMALIZED RATIO 2.5; PROTHROMBIN TIME 29.1 SEC (10.2-12.9)
[2017-07-22] MEDS ORDERED: COUMADIN1 MG PO (14:49)
[2017-07-22 14:50] LABS: UREA NITROGEN (BUN) 20 mg/dL (9-23)
[2017-07-22] MEDS ORDERED: CATAPRES0.3 MG PO (14:51)
[2017-07-22 14:52] LABS: PTT 37.4 SEC (25-37)
[2017-07-22] MEDS ORDERED: NALTREXONE HCL50 MG PO (14:52)
[2017-07-22 14:56] LABS: GLUCOSE 116 mg/dL (70-99)
[2017-07-22] MEDS ORDERED: PAIN RELIEF325 M1 PO (14:56)
[2017-07-22 15:27] LABS: LIPASE 20 U/L (1.0-51.0)
[2017-07-22 20:20] VITALS: BP 183/103
[2017-07-22 21:50] VITALS: BP 138/89
[2017-07-23] VITALS (7 sets, daily range): BP systolic 130–179; BP diastolic 72–106
[2017-07-23 06:32] LABS: INTER. NORMALIZED RATIO 2.4
== END 2017-07-23 21:42 | disposition left against medical advice (07) ==
LOC: EME 09:36 → 5SOUTH 14:03 → EDOF 14:03 → ENRESERV 14:16 → CANRESERV 14:16 → ENRESERV 14:19 → 5SOUTH 16:02
PROVIDERS: Emergency Medicine; Physician Assistant
DX: F10.239 Alcohol dependence with withdrawal, unspecified (principal); I10 Essential (primary) hypertension; J44.9 Chronic obstructive pulmonary disease, unspecified; F41.8 Other specified anxiety disorders; E86.0 Dehydration; Z86.711 Personal history of pulmonary embolism; Z79.01 Long term (current) use of anticoagulants; I25.10 Atherosclerotic heart disease of native coronary artery without angina pectoris; G62.9 Polyneuropathy, unspecified; G40.909 Epilepsy, unspecified, not intractable, without status epilepticus; F17.210 Nicotine dependence, cigarettes, uncomplicated; Z82.49 Family history of ischemic heart disease and other diseases of the circulatory system; Z91.013 Allergy to seafood
CPT/HCPCS: 80048 91; 81003; 83690; 83735; 84999; 85025 91; 85610; 85730; 94640; 94640 76; 99202; 99281; 99285; G0378; G0480; J2060; J3411; J3475; J7030

== ENCOUNTER 2017-07-24 13:36 | Emergency (ER) | payer OTHER ==
[~2017-07-24] VITALS: Ht 172.7 cm; Wt 82.8 kg
[~2017-07-24 13:36] MED LIST changes: +CATAPRES0.3 MG PO; +PAIN RELIEF325 M1 PO
[2017-07-24 14:51] LABS: EOSINOPHIL (%) 3.7 % (0-5); EOSINOPHIL COUNT 0.2 K/uL (0-0.3); HEMATOCRIT 35.8 % (38.0-50.0); IMMATURE GRANULOCYTE (%) 0.4 % (0.0-0.7); INSTRUMENT ABS NEUTROPHIL CT 2.7 K/uL; LYMPHOCYTE COUNT 1.7 K/uL (1.0-2.8); MCH 31.2 PG (29.0-34.0); MCHC 32.1 G/DL (30.0-36.0); MONOCYTE (%) 14.3 % (3-12); MONOCYTE COUNT 0.8 K/uL (0-0.8); NEUTROPHIL (%) 49.3 % (45-76); NEUTROPHIL COUNT 2.7 K/uL (1.8-6.4); RBC DIS.WIDTH-CV 16.8 % (11.8-14.6); RED BLOOD COUNT 3.69 M/uL (4.00-5.50); WHITE BLOOD COUNT 5.4 K/uL (4.1-10.2)
[2017-07-24 14:57] LABS: CHLORIDE 112 mEq/L (99-109); POTASSIUM 3.3 mEq/L (3.7-5.4)
[2017-07-24 14:58] LABS: SODIUM 146 mEq/L (136-147)
[2017-07-24 15:00] LABS: GLUCOSE 88 mg/dL (70-99)
[2017-07-24 15:01] LABS: ANION GAP 14 MEQ/L (2-14)
[2017-07-24 15:02] LABS: TOTAL BILIRUBIN 0.4 mg/dL (0.0-1.0)
[2017-07-24 15:03] LABS: ALKALINE PHOSPHATASE 81 IU/L (3-129); GFR ESTIMATE (CALCULATED) > 59 mL/min/; SERUM ETHYL ALCOHOL 268 mg/dL
[2017-07-24 15:05] LABS: UREA NITROGEN (BUN) 9 mg/dL (9-23)
[2017-07-24 16:30] LABS: MEAN PLAT.VOLUME 8.8 uM^3 (9.0-12.4); PLATELET COUNT 193 K/uL (156-360)
[2017-07-25 01:33] VITALS: BP 116/74
== END 2017-07-25 01:34 | disposition home or self-care (01) ==
LOC: EME 13:36
PROVIDERS: Emergency Medicine
DX: F10.129 Alcohol abuse with intoxication, unspecified (principal); S09.90XA Unspecified injury of head, initial encounter; S00.81XA Abrasion of other part of head, initial encounter; S50.319A Abrasion of unspecified elbow, initial encounter; W19.XXXA Unspecified fall, initial encounter; Y92.59 Other trade areas as the place of occurrence of the external cause; Y90.8 Blood alcohol level of 240 mg/100 ml or more; I10 Essential (primary) hypertension; J44.9 Chronic obstructive pulmonary disease, unspecified; Z86.711 Personal history of pulmonary embolism; Z79.01 Long term (current) use of anticoagulants; K02.9 Dental caries, unspecified; F17.200 Nicotine dependence, unspecified, uncomplicated
CPT/HCPCS: 70450; 72125; 80053; 85025; 99281; 99285; G0480

== ENCOUNTER 2017-07-29 10:24 | Inpatient (IN) | payer OTHER ==
[2017-07-29] VITALS (10 sets, daily range): BP systolic 90–172; BP diastolic 52–75
[~2017-07-29] VITALS: Ht 167.6 cm; Wt 83.5 kg
[~2017-07-29 10:24] MED LIST changes: -PAIN RELIEF325 M1 PO; -TOPROL XL100 MG PO; -XANAX0.25 MG PO
[2017-07-29 11:07] LABS: EOSINOPHIL (%) 0.1 % (0-5); HEMATOCRIT 38.8 % (38.0-50.0); IMMATURE GRANULOCYTE (%) 0.4 % (0.0-0.7); INSTRUMENT ABS NEUTROPHIL CT 6.7 K/uL; MCH 30.8 PG (29.0-34.0); MCHC 31.4 G/DL (30.0-36.0); MONOCYTE (%) 5.7 % (3-12); MONOCYTE COUNT 0.5 K/uL (0-0.8); NEUTROPHIL (%) 81.4 % (45-76); NEUTROPHIL COUNT 6.7 K/uL (1.8-6.4); RBC DIS.WIDTH-SD 62.4 % (39-53); RED BLOOD COUNT 3.96 M/uL (4.00-5.50); WHITE BLOOD COUNT 8.3 K/uL (4.1-10.2)
[2017-07-29 11:09] LABS: PLATELET COUNT 289 K/uL (156-360)
[2017-07-29 11:33] LABS: POINT-OF-CARE METER ID UU13113702
[2017-07-29 11:44] LABS: CHLORIDE 105 mEq/L (99-109); SODIUM 150 mEq/L (136-147)
[2017-07-29 11:47] LABS: GLUCOSE 137 mg/dL (70-99)
[2017-07-29 11:48] LABS: ANION GAP 25 MEQ/L (2-14)
[2017-07-29 11:50] LABS: ALKALINE PHOSPHATASE 86 IU/L (3-129); SERUM ETHYL ALCOHOL 336 mg/dL
[2017-07-29 11:57] LABS: GFR ESTIMATE (CALCULATED) 26 mL/min/; TOTAL BILIRUBIN 0.3 mg/dL (0.0-1.0); UREA NITROGEN (BUN) 77 mg/dL (9-23)
[2017-07-29 11:59] LABS: TROP-I INTERPRETATION NEGATIVE; TROPONIN-I 0.04 ng/mL (0.0-0.30)
[2017-07-29 12:04] LABS: AMPHETAMINE NEGATIVE (500 ng/mL); BARBITURATES NEGATIVE (200 ng/mL); BENZODIAZEPINES PRESUMPTIVE POSITIVE (150 ng/mL); COCAINE NEGATIVE (150 ng/mL); METHADONE NEGATIVE (200 ng/mL); METHAMPHETAMINE NEGATIVE (500 ng/mL); OPIATES (MORPHINE) NEGATIVE (100 ng/mL); OXYCODONE NEGATIVE (100 ng/mL); PHENCYCLIDINE NEGATIVE (25 ng/mL); PROPOXYPHENE NEGATIVE (300 ng/mL); THC CANNABINOIDS NEGATIVE (50 ng/mL); TRICYCLIC ANTIDEPRESSANTS PRESUMPTIVE POSITIVE (300 ng/mL)
[2017-07-29 12:05] LABS: ADD MEDTOX COMMENT Y; INTERNAL CONTROLS VALID? YES
[2017-07-29 12:06] LABS: ADD MIUA? YES; BILIRUBIN NEGATIVE; BLOOD SMALL; GLUCOSE (STRIP) NEGATIVE; KETONES 5; LEUKOCYTES NEGATIVE; NITRITE NEGATIVE; PROTEIN (STRIP) 30; SPECIFIC GRAVITY 1.018 (1.000-1.030); UROBILINOGEN 0.2 MG/DL (0.2-1.0)
[2017-07-29 12:07] LABS: COLOR DK YELLOW ((YELLOW))
[2017-07-29 12:14] LABS: BACTERIA RARE /HPF; EPITHELIAL CELLS RARE /HPF; HYALINE CASTS 20-30 /LPF; MUCUS TRACE /LPF; RED BLOOD CELLS 0-5 /HPF (0-5); UCUL ADDED? NO; WHITE BLOOD CELLS 0-5 /HPF (0-5)
[2017-07-29 12:46] LABS: BENZODIAZEPINES, URINE SCREEN POSITIVE (200 ng/mL)
[2017-07-29 16:05] LABS: METH RESISTANT S AUREUS PCR NEGATIVE (NEGATIVE)
[2017-07-29 16:28] LABS: PROBE CHECK PASS; SPECIMEN PROCESSING CONTROL PASS
[2017-07-29 22:16] LABS: HEMATOCRIT 23.8 % (38.0-50.0); MCH 31.6 PG (29.0-34.0); MCHC 30.3 G/DL (30.0-36.0); RBC DIS.WIDTH-CV 17.3 % (11.8-14.6); RBC DIS.WIDTH-SD 67.2 % (39-53); WHITE BLOOD COUNT 4.8 K/uL (4.1-10.2)
[2017-07-29 22:19] LABS: SODIUM 149 mEq/L (136-147)
[2017-07-29 22:20] LABS: MCV 104.4 FL (86-99); RED BLOOD COUNT 2.28 M/uL (4.00-5.50)
[2017-07-29 22:21] LABS: CHLORIDE 117 mEq/L (99-109); POTASSIUM 4.9 mEq/L (3.7-5.4)
[2017-07-29 22:22] LABS: GLUCOSE 106 mg/dL (70-99)
[2017-07-29 22:23] LABS: ANION GAP 19 MEQ/L (2-14)
[2017-07-29 22:25] LABS: ALKALINE PHOSPHATASE 65 IU/L (3-129)
[2017-07-29 22:27] LABS: UREA NITROGEN (BUN) 73 mg/dL (9-23)
[2017-07-29 22:29] LABS: CREATINE KINASE 368 IU/L (1-294); GFR ESTIMATE (CALCULATED) > 59 mL/min/
[2017-07-29 22:30] LABS: TOTAL BILIRUBIN 0.2 mg/dL (0.0-1.0)
[2017-07-29 23:09] LABS: ANISOCYTOSIS 1+; EOSINOPHIL (%) 0 % (0-5); IMMATURE GRANULOCYTE (%) 0.4 % (0.0-0.7); INSTRUMENT ABS NEUTROPHIL CT 2.9 K/uL; MACROCYTES 2+; MEAN PLAT.VOLUME 9.8 uM^3 (9.0-12.4); MONOCYTE (%) 17.6 % (3-12); MONOCYTE COUNT 0.8 K/uL (0-0.8); NEUTROPHIL (%) 61.4 % (45-76); NEUTROPHIL COUNT 2.9 K/uL (1.8-6.4); PLAT.SUFFICIENCY ADEQUATE; PLATELET COUNT 167 K/uL (156-360)
[2017-07-30] VITALS (30 sets, daily range): BP systolic 70–172; BP diastolic 44–118
[2017-07-30 07:23] LABS: EOSINOPHIL (%) 0.5 % (0-5); HEMATOCRIT 18.6 % (38.0-50.0); IMMATURE GRANULOCYTE (%) 0.4 % (0.0-0.7); INSTRUMENT ABS NEUTROPHIL CT 2.9 K/uL; LYMPHOCYTE COUNT 1.4 K/uL (1.0-2.8); MCH 32.2 PG (29.0-34.0); MCHC 31.7 G/DL (30.0-36.0); MCV 101.6 FL (86-99); MEAN PLAT.VOLUME 9.8 uM^3 (9.0-12.4); MONOCYTE (%) 20.1 % (3-12); MONOCYTE COUNT 1.1 K/uL (0-0.8); NEUTROPHIL (%) 52.8 % (45-76); NEUTROPHIL COUNT 2.9 K/uL (1.8-6.4); PLATELET COUNT 139 K/uL (156-360); RBC DIS.WIDTH-CV 17.3 % (11.8-14.6); RBC DIS.WIDTH-SD 64.9 % (39-53); RED BLOOD COUNT 1.83 M/uL (4.00-5.50); WHITE BLOOD COUNT 5.5 K/uL (4.1-10.2)
[2017-07-30 07:38] LABS: ALKALINE PHOSPHATASE 46 IU/L (3-129); ANION GAP 5 MEQ/L (2-14); CHLORIDE 121 MEQ/L (99-109); GFR ESTIMATE (CALCULATED) > 59 mL/min/; GLUCOSE 98 mg/dL (70-99); MAGNESIUM 1.6 mg/dl (1.3-2.7); SAMPLE HEMOLYSIS CHECK 0; SAMPLE ICTERIC CHECK 0; SAMPLE LIPEMIA CHECK 0; SODIUM 151 MEQ/L (136-147); TOTAL BILIRUBIN 0.2 MG/DL (0.0-1.0); UREA NITROGEN (BUN) 65 mg/dL (9-23)
[2017-07-30 07:40] LABS: POTASSIUM 3.8 MEQ/L (3.7-5.4)
[2017-07-30 13:42] LABS: PROTHROMBIN TIME 180.9 SEC (10.2-12.9)
[2017-07-30 13:47] LABS: INTER. NORMALIZED RATIO 14.7
[2017-07-30 15:02] LABS: HEMATOCRIT 26.5 % (38.0-50.0); MCV 95.7 FL (86-99)
[2017-07-30 22:32] LABS: INTER. NORMALIZED RATIO 1.9; PROTHROMBIN TIME 21.7 SEC (10.2-12.9)
[2017-07-31] VITALS (29 sets, daily range): BP systolic 123–185; BP diastolic 74–115
[2017-07-31 05:27] LABS: AMYLASE 34 IU/L (1-118); LIPASE 24 U/L (1.0-51.0)
[2017-07-31 09:03] LABS: EOSINOPHIL (%) 3.3 % (0-5); EOSINOPHIL COUNT 0.1 K/uL (0-0.3); HEMATOCRIT 18.8 % (38.0-50.0); IMMATURE GRANULOCYTE (%) 0.3 % (0.0-0.7); LYMPHOCYTE COUNT 1.1 K/uL (1.0-2.8); MCHC 33.5 G/DL (30.0-36.0); MCV 95.4 FL (86-99); MEAN PLAT.VOLUME 9.8 uM^3 (9.0-12.4); MONOCYTE (%) 12.6 % (3-12); MONOCYTE COUNT 0.5 K/uL (0-0.8); NEUTROPHIL (%) 54.5 % (45-76); PLATELET COUNT 108 K/uL (156-360); RBC DIS.WIDTH-SD 65.9 % (39-53); RED BLOOD COUNT 1.97 M/uL (4.00-5.50); WHITE BLOOD COUNT 3.7 K/uL (4.1-10.2)
[2017-07-31 09:09] LABS: PROTHROMBIN TIME 22.9 SEC (10.2-12.9)
[2017-07-31 09:13] LABS: PTT 31.6 SEC (25-37)
[2017-07-31 09:42] LABS: ALKALINE PHOSPHATASE 50 IU/L (3-129); ANION GAP 10 MEQ/L (2-14); CHLORIDE 118 MEQ/L (99-109); GFR ESTIMATE (CALCULATED) > 59 mL/min/; GLUCOSE 88 mg/dL (70-99); MAGNESIUM 1.4 mg/dl (1.3-2.7); POTASSIUM 3.3 MEQ/L (3.7-5.4); SAMPLE HEMOLYSIS CHECK 0; SAMPLE ICTERIC CHECK 0; SAMPLE LIPEMIA CHECK 0; SODIUM 149 MEQ/L (136-147); UREA NITROGEN (BUN) 34 mg/dL (9-23)
[2017-07-31 09:43] LABS: TOTAL BILIRUBIN 1.4 MG/DL (0.0-1.0)
[2017-08-01] VITALS (19 sets, daily range): BP systolic 117–183; BP diastolic 74–137
[2017-08-01 06:03] LABS: EOSINOPHIL (%) 4.8 % (0-5); EOSINOPHIL COUNT 0.2 K/uL (0-0.3); HEMATOCRIT 20.7 % (38.0-50.0); IMMATURE GRANULOCYTE (%) 0.3 % (0.0-0.7); INSTRUMENT ABS NEUTROPHIL CT 1.7 K/uL; LYMPHOCYTE COUNT 1.1 K/uL (1.0-2.8); MCH 30.4 PG (29.0-34.0); MCHC 32.9 G/DL (30.0-36.0); MCV 92.4 FL (86-99); MEAN PLAT.VOLUME 10.2 uM^3 (9.0-12.4); MONOCYTE (%) 12.3 % (3-12); MONOCYTE COUNT 0.4 K/uL (0-0.8); NEUTROPHIL (%) 49.9 % (45-76); NEUTROPHIL COUNT 1.7 K/uL (1.8-6.4); PLATELET COUNT 134 K/uL (156-360); RBC DIS.WIDTH-CV 17.9 % (11.8-14.6); RBC DIS.WIDTH-SD 59.5 % (39-53); RED BLOOD COUNT 2.24 M/uL (4.00-5.50); WHITE BLOOD COUNT 3.3 K/uL (4.1-10.2)
[2017-08-01 06:13] LABS: ANION GAP 8 MEQ/L (2-14); CHLORIDE 112 MEQ/L (99-109); GFR ESTIMATE (CALCULATED) > 59 mL/min/; GLUCOSE 94 mg/dL (70-99); POTASSIUM 2.9 MEQ/L (3.7-5.4); SAMPLE HEMOLYSIS CHECK 0; SAMPLE ICTERIC CHECK 0; SAMPLE LIPEMIA CHECK 0; SODIUM 146 MEQ/L (136-147); UREA NITROGEN (BUN) 17 mg/dL (9-23)
[2017-08-01 06:17] LABS: PTT 30.4 SEC (25-37)
[2017-08-01] MEDS ORDERED: TOPROL XL100 MG PO (09:11)
[2017-08-01] MEDS ORDERED: APRESOLINE50 MG PO (09:12)
[2017-08-01] MEDS ORDERED: LISINOPRIL20 MG PO (09:12)
[2017-08-01] MEDS ORDERED: COMBIVENT RESPIM4 GM IH (09:12)
[2017-08-01] MEDS ORDERED: VENTOLIN HFA18 GM IH (09:13)
[2017-08-01] MEDS ORDERED: TIMOPTIC-0100 DROP/5 BOTH EYES (09:13)
[2017-08-01] MEDS ORDERED: XANAX0.25 MG PO (09:13)
[2017-08-01] MEDS ORDERED: DOXEPIN HCL100 MG PO (09:14)
[2017-08-01] MEDS ORDERED: PAIN RELIEF325 M1 PO (09:14)
[2017-08-01] MEDS ORDERED: DOXEPIN HCL25 MG PO (09:14)
[2017-08-01] MEDS ORDERED: TRIAZOLAM0.25 MG PO (09:14)
[2017-08-01] MEDS ORDERED: FOLIC ACID1 MG PO (09:15)
[2017-08-01] MEDS ORDERED: BUSPAR5 MG PO (09:15)
[2017-08-01] MEDS ORDERED: B-1100 MG PO (09:15)
[2017-08-01] MEDS ORDERED: WELLBUTRIN SR150 MG PO (09:15)
[2017-08-01] MEDS ORDERED: COUMADIN7.5 MG PO (09:24)
[2017-08-01] MEDS ORDERED: REVIA50 MG PO (09:25)
[2017-08-01] MEDS ORDERED: NICODERM CQ1 EAC2 TD (09:25)
[2017-08-01] MEDS ORDERED: CATAPRES0.3 MG PO (09:25)
[2017-08-02] VITALS (7 sets, daily range): BP systolic 111–167; BP diastolic 68–99
[2017-08-02 08:43] LABS: HEMATOCRIT 24.5 % (38.0-50.0); MCH 31.4 PG (29.0-34.0); MCHC 33.9 G/DL (30.0-36.0); MCV 92.8 FL (86-99); MEAN PLAT.VOLUME 9.7 uM^3 (9.0-12.4); PLATELET COUNT 160 K/uL (156-360); RBC DIS.WIDTH-CV 17.4 % (11.8-14.6); RBC DIS.WIDTH-SD 58.1 % (39-53); RED BLOOD COUNT 2.64 M/uL (4.00-5.50); WHITE BLOOD COUNT 5.2 K/uL (4.1-10.2)
[2017-08-02 08:48] LABS: INTER. NORMALIZED RATIO 1.3; PROTHROMBIN TIME 14.1 SEC (10.2-12.9)
[2017-08-02 09:16] LABS: ANION GAP 7 MEQ/L (2-14); CHLORIDE 113 MEQ/L (99-109); GFR ESTIMATE (CALCULATED) > 59 mL/min/; GLUCOSE 114 mg/dL (70-99); SAMPLE HEMOLYSIS CHECK 0; SAMPLE ICTERIC CHECK 0; SAMPLE LIPEMIA CHECK 0; SODIUM 145 MEQ/L (136-147); UREA NITROGEN (BUN) 17 mg/dL (9-23)
[2017-08-02 09:17] LABS: POTASSIUM 4.2 MEQ/L (3.7-5.4)
[2017-08-03 03:00] VITALS: BP 163/96
[2017-08-03 06:30] LABS: ANION GAP 11 MEQ/L (2-14); CHLORIDE 108 MEQ/L (99-109); GFR ESTIMATE (CALCULATED) > 59 mL/min/; GLUCOSE 118 mg/dL (70-99); POTASSIUM 4.5 MEQ/L (3.7-5.4); SAMPLE HEMOLYSIS CHECK 0; SAMPLE ICTERIC CHECK 0; SAMPLE LIPEMIA CHECK 0; SODIUM 145 MEQ/L (136-147); UREA NITROGEN (BUN) 13 mg/dL (9-23)
[2017-08-03 07:11] LABS: HEMATOCRIT 32.8 % (38.0-50.0); MCH 31.2 PG (29.0-34.0); MCHC 33.8 G/DL (30.0-36.0); MCV 92.1 FL (86-99); RBC DIS.WIDTH-CV 17.7 % (11.8-14.6); RBC DIS.WIDTH-SD 56.4 % (39-53); WHITE BLOOD COUNT 5.5 K/uL (4.1-10.2)
[2017-08-03 07:15] LABS: RED BLOOD COUNT 3.56 M/uL (4.00-5.50)
[2017-08-03 08:00] VITALS: BP 160/90
[2017-08-03 08:07] LABS: PLAT.SUFFICIENCY DECREASED; PLATELET CLUMPS PRESENT - PLATELET COUNTS APPEARS DECREASED
[2017-08-03 08:08] LABS: PLATELET COUNT UNABLE TO REPORT K/uL (156-360)
[2017-08-03 09:50] LABS: ADD MIUA? NO; BILIRUBIN NEGATIVE; BLOOD NEGATIVE; COLOR COLORLESS ((YELLOW)); GLUCOSE (STRIP) 50; KETONES NEGATIVE; LEUKOCYTES NEGATIVE; NITRITE NEGATIVE; PROTEIN (STRIP) NEGATIVE; SPECIFIC GRAVITY 1.005 (1.000-1.030); UROBILINOGEN 0.2 MG/DL (0.2-1.0)
[2017-08-03 09:54] LABS: UCUL ADDED? NO
[2017-08-03 14:00] VITALS: BP 168/79
[2017-08-03 17:22] VITALS: BP 187/121
[2017-08-03 20:00] VITALS: BP 173/115
[2017-08-04 00:19] VITALS: BP 175/105
[2017-08-04 04:52] VITALS: BP 150/82
[2017-08-04 08:04] VITALS: BP 172/91
[2017-08-04 11:48] VITALS: BP 152/100
[2017-08-04 23:30] VITALS: BP 145/93
[2017-08-05 09:01] VITALS: BP 126/70
[2017-08-05 15:49] VITALS: BP 126/80
[2017-08-06 00:23] VITALS: BP 121/79
[2017-08-06 07:37] VITALS: BP 148/87
[2017-08-06 09:33] LABS: HEMATOCRIT 29.8 % (38.0-50.0); MCH 30.4 PG (29.0-34.0); MCHC 31.5 G/DL (30.0-36.0); MEAN PLAT.VOLUME 9.5 uM^3 (9.0-12.4); PLATELET COUNT 352 K/uL (156-360); RBC DIS.WIDTH-CV 17.4 % (11.8-14.6); RBC DIS.WIDTH-SD 58.4 % (39-53); RED BLOOD COUNT 3.09 M/uL (4.00-5.50); WHITE BLOOD COUNT 6.7 K/uL (4.1-10.2)
[2017-08-06 09:36] LABS: MCV 96.4 FL (86-99)
[2017-08-06 09:50] LABS: ANION GAP 10 MEQ/L (2-14); CHLORIDE 107 MEQ/L (99-109); POTASSIUM 4.1 MEQ/L (3.7-5.4); SAMPLE HEMOLYSIS CHECK 0; SAMPLE ICTERIC CHECK 0; SAMPLE LIPEMIA CHECK 0; SODIUM 144 MEQ/L (136-147)
[2017-08-06 09:58] LABS: GFR ESTIMATE (CALCULATED) > 59 mL/min/; GLUCOSE 123 mg/dL (70-99); UREA NITROGEN (BUN) 32 mg/dL (9-23)
[2017-08-06 16:02] VITALS: BP 142/92
[2017-08-06 21:01] VITALS: BP 136/87
[2017-08-07 00:33] VITALS: BP 109/65
[2017-08-07 08:30] VITALS: BP 123/64
[2017-08-07 08:54] LABS: ANION GAP 10 MEQ/L (2-14); CHLORIDE 110 MEQ/L (99-109); POTASSIUM 4.3 MEQ/L (3.7-5.4); SAMPLE HEMOLYSIS CHECK 0; SAMPLE ICTERIC CHECK 0; SAMPLE LIPEMIA CHECK 0; SODIUM 145 MEQ/L (136-147)
[2017-08-07 09:00] LABS: GFR ESTIMATE (CALCULATED) > 59 mL/min/; GLUCOSE 113 mg/dL (70-99); UREA NITROGEN (BUN) 33 mg/dL (9-23)
[2017-08-07 09:21] LABS: HEMATOCRIT 32.1 % (38.0-50.0); MCH 30.9 PG (29.0-34.0); MCHC 31.5 G/DL (30.0-36.0); MCV 98.2 FL (86-99); MEAN PLAT.VOLUME 9.6 uM^3 (9.0-12.4); PLATELET COUNT 424 K/uL (156-360); RBC DIS.WIDTH-CV 17.3 % (11.8-14.6); RBC DIS.WIDTH-SD 60.3 % (39-53); RED BLOOD COUNT 3.27 M/uL (4.00-5.50); WHITE BLOOD COUNT 6.7 K/uL (4.1-10.2)
[2017-08-07 09:25] LABS: INTER. NORMALIZED RATIO 0.9; PROTHROMBIN TIME 9.5 SEC (10.2-12.9)
[2017-08-07] MEDS ORDERED: PANTOPRAZOLE SO40 MG PO (13:45)
[2017-08-07] MEDS ORDERED: BUSPAR15 MG PO ×2 (15:29→15:40)
[2017-08-07 16:30] VITALS: BP 169/96
== END 2017-08-07 16:10 | disposition home or self-care (01) | DRG 981 ==
LOC: EME → EDBD 10:24 → 3EAST 13:07 → 4WEST 13:07 → EDOF 13:07 → ENRESERV 13:08 → 4WEST 14:29 → ENRESERV 08-02 10:54 → 3EAST 08-03 14:57
PROVIDERS: Emergency Medicine; Hospitalist; Internal Medicine; Internal Medicine Critical Care Medicine; Nurse Practitioner Adult Health; Obstetrics & Gynecology; Physician Assistant
DX: F10.229 Alcohol dependence with intoxication, unspecified (principal); F10.239 Alcohol dependence with withdrawal, unspecified; Y92.89 Other specified places as the place of occurrence of the external cause; Z91.19 Patient's noncompliance with other medical treatment and regimen; K29.80 Duodenitis without bleeding; G40.909 Epilepsy, unspecified, not intractable, without status epilepticus; F32.9 Major depressive disorder, single episode, unspecified; I10 Essential (primary) hypertension; I25.10 Atherosclerotic heart disease of native coronary artery without angina pectoris; J44.0 Chronic obstructive pulmonary disease with (acute) lower respiratory infection; E87.2 Acidosis; K44.9 Diaphragmatic hernia without obstruction or gangrene; R57.1 Hypovolemic shock; J44.9 Chronic obstructive pulmonary disease, unspecified; R09.02 Hypoxemia; E86.1 Hypovolemia; J18.9 Pneumonia, unspecified organism; Y90.8 Blood alcohol level of 240 mg/100 ml or more; N17.9 Acute kidney failure, unspecified; D62 Acute posthemorrhagic anemia; I26.99 Other pulmonary embolism without acute cor pulmonale; E83.39 Other disorders of phosphorus metabolism; E83.42 Hypomagnesemia; F17.210 Nicotine dependence, cigarettes, uncomplicated; K92.1 Melena; K29.70 Gastritis, unspecified, without bleeding; Z86.711 Personal history of pulmonary embolism; Z91.013 Allergy to seafood; Z79.01 Long term (current) use of anticoagulants; Z86.718 Personal history of other venous thrombosis and embolism; Z59.0 Homelessness; Z86.73 Personal history of transient ischemic attack (TIA), and cerebral infarction without residual deficits; G62.9 Polyneuropathy, unspecified; M62.82 Rhabdomyolysis; T45.511A Poisoning by anticoagulants, accidental (unintentional), initial encounter
CPT/HCPCS: 70450; 71010; 80048; 80053; 81003; 82140; 82150; 82272; 82550; 82948; 83605; 83690; 83735; 83880; 83930; 83935; 84100; 84484; 84999; 85014; 85018; 85025; 85025 91; 85027; 85610; 85730; 86850; 86900; 86901; 86920; 87040; 87641; 90686; 93005; 93306; 94640; 94640 76; 94760; 94799; 97530 GO; 97530 GP; 99202; 99281; 99285; C1751; C1753; C1769; C1894; C9113; G0480; J0456; J0610; J0690; J0696; J1170; J1630; J1644; J2060; J2250; J2405; J2550; J3010; J3370; J3411; J3430; J3475; J7030; J7050; P9016; P9017

== ENCOUNTER 2017-08-09 13:39 | Emergency (ER) | payer OTHER ==
[~2017-08-09] VITALS: Ht 170.2 cm; Wt 79.7 kg
[~2017-08-09 13:39] MED LIST changes: +COUMADIN7.5 MG PO; +NICODERM CQ1 EAC2 TD; +PAIN RELIEF325 M1 PO; +PANTOPRAZOLE SO40 MG PO; +REVIA50 MG PO; +TIMOPTIC-0100 DROP/5 BOTH EYES; +TOPROL XL100 MG PO; +XANAX0.25 MG PO
[2017-08-09 14:15] LABS: HEMATOCRIT 28.6 % (38.0-50.0); MCH 30.3 PG (29.0-34.0); MCHC 31.5 G/DL (30.0-36.0); MCV 96.3 FL (86-99); MEAN PLAT.VOLUME 8.8 uM^3 (9.0-12.4); PLATELET COUNT 455 K/uL (156-360); RBC DIS.WIDTH-CV 17.1 % (11.8-14.6); RBC DIS.WIDTH-SD 59.2 % (39-53); RED BLOOD COUNT 2.97 M/uL (4.00-5.50); WHITE BLOOD COUNT 6.9 K/uL (4.1-10.2)
[2017-08-09 14:26] LABS: CHLORIDE 111 mEq/L (99-109); POTASSIUM 3.6 mEq/L (3.7-5.4); SODIUM 146 mEq/L (136-147)
[2017-08-09 14:28] LABS: GLUCOSE 125 mg/dL (70-99)
[2017-08-09 14:29] LABS: ANION GAP 12 MEQ/L (2-14)
[2017-08-09 14:31] LABS: SERUM ETHYL ALCOHOL 290 mg/dL
[2017-08-09 14:32] LABS: GFR ESTIMATE (CALCULATED) 51 mL/min/
[2017-08-09 14:33] LABS: UREA NITROGEN (BUN) 47 mg/dL (9-23)
[2017-08-09 14:50] VITALS: BP 116/73
== END 2017-08-09 15:41 | disposition left against medical advice (07) ==
LOC: EME 13:39
PROVIDERS: Emergency Medicine
DX: F10.129 Alcohol abuse with intoxication, unspecified (principal); I95.9 Hypotension, unspecified; J44.9 Chronic obstructive pulmonary disease, unspecified; I10 Essential (primary) hypertension; F41.9 Anxiety disorder, unspecified; F31.9 Bipolar disorder, unspecified; F19.10 Other psychoactive substance abuse, uncomplicated; Z86.73 Personal history of transient ischemic attack (TIA), and cerebral infarction without residual deficits; Z86.711 Personal history of pulmonary embolism; F17.200 Nicotine dependence, unspecified, uncomplicated
CPT/HCPCS: 71010; 80048; 83605; 85027; 93005; 99281; 99285; G0480; J7030

== ENCOUNTER 2017-08-14 05:29 | Inpatient (IN) | payer OTHER ==
[~2017-08-14] VITALS: Ht 165.1 cm; Wt 86.9 kg
[2017-08-14 06:58] LABS: BASOPHIL COUNT 0.2 K/uL (0-0.1); EOSINOPHIL (%) 0.1 % (0-5); HEMATOCRIT 36.8 % (38.0-50.0); IMMATURE GRANULOCYTE (%) 0.1 % (0.0-0.7); INSTRUMENT ABS NEUTROPHIL CT 6.4 K/uL; LYMPHOCYTE COUNT 2.2 K/uL (1.0-2.8); MCH 30.5 PG (29.0-34.0); MCHC 31.8 G/DL (30.0-36.0); MCV 96.1 FL (86-99); MEAN PLAT.VOLUME 8.6 uM^3 (9.0-12.4); MONOCYTE (%) 5.5 % (3-12); MONOCYTE COUNT 0.5 K/uL (0-0.8); NEUTROPHIL COUNT 6.4 K/uL (1.8-6.4); PLATELET COUNT 569 K/uL (156-360); RBC DIS.WIDTH-CV 17.8 % (11.8-14.6); RBC DIS.WIDTH-SD 60.8 % (39-53); WHITE BLOOD COUNT 9.3 K/uL (4.1-10.2)
[2017-08-14 06:59] LABS: RED BLOOD COUNT 3.83 M/uL (4.00-5.50)
[2017-08-14 07:05] LABS: PROTHROMBIN TIME 11.1 SEC (10.2-12.9)
[2017-08-14 07:11] LABS: ANION GAP 16 MEQ/L (2-14); CHLORIDE 105 MEQ/L (99-109); POTASSIUM 3.8 MEQ/L (3.7-5.4); SAMPLE HEMOLYSIS CHECK 0; SAMPLE ICTERIC CHECK 0; SAMPLE LIPEMIA CHECK 0; SODIUM 145 MEQ/L (136-147); TOTAL BILIRUBIN 0.6 MG/DL (0.0-1.0)
[2017-08-14 07:24] LABS: ALKALINE PHOSPHATASE 95 IU/L (3-129); GFR ESTIMATE (CALCULATED) > 59 mL/min/; GLUCOSE 104 mg/dL (70-99); LIPASE 24 U/L (1.0-51.0); SERUM ETHYL ALCOHOL 352 mg/dL; UREA NITROGEN (BUN) 16 mg/dL (9-23)
[2017-08-14 12:11] LABS: HEMATOCRIT 32.2 % (38.0-50.0); MCH 30.3 PG (29.0-34.0); MCHC 31.7 G/DL (30.0-36.0); MCV 95.5 FL (86-99); MEAN PLAT.VOLUME 8.5 uM^3 (9.0-12.4); PLATELET COUNT 456 K/uL (156-360); RBC DIS.WIDTH-CV 17.7 % (11.8-14.6); RBC DIS.WIDTH-SD 60.8 % (39-53); RED BLOOD COUNT 3.37 M/uL (4.00-5.50)
[2017-08-14 14:10] LABS: MAGNESIUM 1.9 mg/dl (1.3-2.7)
[2017-08-14 16:06] VITALS: BP 177/99
[2017-08-14 18:01] LABS: BASOPHIL COUNT 0.1 K/uL (0-0.1); EOSINOPHIL (%) 0.2 % (0-5); HEMATOCRIT 33.4 % (38.0-50.0); IMMATURE GRANULOCYTE (%) 0.2 % (0.0-0.7); LYMPHOCYTE COUNT 1.6 K/uL (1.0-2.8); MCH 30.9 PG (29.0-34.0); MCHC 32.3 G/DL (30.0-36.0); MCV 95.4 FL (86-99); MEAN PLAT.VOLUME 8.8 uM^3 (9.0-12.4); MONOCYTE (%) 7.8 % (3-12); MONOCYTE COUNT 0.7 K/uL (0-0.8); NEUTROPHIL (%) 72.1 % (45-76); PLATELET COUNT 546 K/uL (156-360); RBC DIS.WIDTH-CV 17.6 % (11.8-14.6); RBC DIS.WIDTH-SD 60.6 % (39-53); WHITE BLOOD COUNT 8.3 K/uL (4.1-10.2)
[2017-08-14 18:04] VITALS: BP 157/96
[2017-08-14 19:11] LABS: METH RESISTANT S AUREUS PCR NEGATIVE (NEGATIVE)
[2017-08-14 19:25] LABS: PROBE CHECK PASS; SPECIMEN PROCESSING CONTROL PASS
[2017-08-14 20:00] VITALS: BP 157/83
[2017-08-15] VITALS (8 sets, daily range): BP systolic 97–171; BP diastolic 51–80
[2017-08-15 05:55] LABS: HEMATOCRIT 29.5 % (38.0-50.0); MCH 31.2 PG (29.0-34.0); MCHC 31.5 G/DL (30.0-36.0); RBC DIS.WIDTH-CV 17.5 % (11.8-14.6); RBC DIS.WIDTH-SD 62.8 % (39-53); RED BLOOD COUNT 2.98 M/uL (4.00-5.50); WHITE BLOOD COUNT 7.3 K/uL (4.1-10.2)
[2017-08-15 06:17] LABS: ALKALINE PHOSPHATASE 73 IU/L (3-129); ANION GAP 9 MEQ/L (2-14); CHLORIDE 107 MEQ/L (99-109); GFR ESTIMATE (CALCULATED) > 59 mL/min/; GLUCOSE 79 mg/dL (70-99); MAGNESIUM 1.7 mg/dl (1.3-2.7); POTASSIUM 3.9 MEQ/L (3.7-5.4); SAMPLE HEMOLYSIS CHECK 0; SAMPLE ICTERIC CHECK 0; SAMPLE LIPEMIA CHECK 0; SODIUM 143 MEQ/L (136-147); TOTAL BILIRUBIN 1.9 MG/DL (0.0-1.0); UREA NITROGEN (BUN) 19 mg/dL (9-23)
[2017-08-15 06:27] LABS: MEAN PLAT.VOLUME 8.8 uM^3 (9.0-12.4); PLAT.SUFFICIENCY ADEQUATE
[2017-08-15 06:40] LABS: PLATELET COUNT 367 K/uL (156-360)
[2017-08-15 18:04] LABS: ADD MIUA? YES; BILIRUBIN NEGATIVE; BLOOD NEGATIVE; COLOR AMBER ((YELLOW)); GLUCOSE (STRIP) 50; KETONES NEGATIVE; LEUKOCYTES NEGATIVE; NITRITE NEGATIVE; PROTEIN (STRIP) 30; SPECIFIC GRAVITY 1.017 (1.000-1.030)
[2017-08-15 19:17] LABS: BACTERIA NONE SEEN /HPF; EPITHELIAL CELLS RARE /HPF; MUCUS 4+ /LPF; RED BLOOD CELLS 0-5 /HPF (0-5); UCUL ADDED? NO; WHITE BLOOD CELLS 0-5 /HPF (0-5)
[2017-08-15 19:25] LABS: INTERNAL CONTROL VALID? YES
[2017-08-16] VITALS (8 sets, daily range): BP systolic 118–164; BP diastolic 68–96
[2017-08-16 05:15] LABS: EOSINOPHIL (%) 3.4 % (0-5); EOSINOPHIL COUNT 0.2 K/uL (0-0.3); HEMATOCRIT 27.4 % (38.0-50.0); IMMATURE GRANULOCYTE (%) 0.2 % (0.0-0.7); INSTRUMENT ABS NEUTROPHIL CT 2.9 K/uL; LYMPHOCYTE COUNT 1.6 K/uL (1.0-2.8); MCH 30.2 PG (29.0-34.0); MCHC 30.3 G/DL (30.0-36.0); MCV 99.6 FL (86-99); MEAN PLAT.VOLUME 8.9 uM^3 (9.0-12.4); MONOCYTE COUNT 0.5 K/uL (0-0.8); NEUTROPHIL (%) 55.4 % (45-76); NEUTROPHIL COUNT 2.9 K/uL (1.8-6.4); PLATELET COUNT 319 K/uL (156-360); RBC DIS.WIDTH-CV 17.4 % (11.8-14.6); RBC DIS.WIDTH-SD 62.5 % (39-53); RED BLOOD COUNT 2.75 M/uL (4.00-5.50); WHITE BLOOD COUNT 5.3 K/uL (4.1-10.2)
[2017-08-16 05:41] LABS: ALKALINE PHOSPHATASE 67 IU/L (3-129); ANION GAP 7 MEQ/L (2-14); CHLORIDE 111 MEQ/L (99-109); GFR ESTIMATE (CALCULATED) > 59 mL/min/; MAGNESIUM 1.7 mg/dl (1.3-2.7); POTASSIUM 3.9 MEQ/L (3.7-5.4); SAMPLE HEMOLYSIS CHECK 0; SAMPLE ICTERIC CHECK 0; SAMPLE LIPEMIA CHECK 0; SODIUM 142 MEQ/L (136-147); UREA NITROGEN (BUN) 23 mg/dL (9-23)
[2017-08-16 05:48] LABS: GLUCOSE 120 mg/dL (70-99)
[2017-08-16 05:49] LABS: TOTAL BILIRUBIN 0.7 MG/DL (0.0-1.0)
[2017-08-16 17:31] LABS: METH RESISTANT S AUREUS PCR NEGATIVE (NEGATIVE)
[2017-08-16 17:46] LABS: PROBE CHECK PASS; SPECIMEN PROCESSING CONTROL PASS
[2017-08-17] VITALS (9 sets, daily range): BP systolic 127–183; BP diastolic 80–108
[2017-08-17 07:18] LABS: EOSINOPHIL (%) 3.4 % (0-5); EOSINOPHIL COUNT 0.3 K/uL (0-0.3); HEMATOCRIT 27.8 % (38.0-50.0); IMMATURE GRANULOCYTE (%) 0.1 % (0.0-0.7); INSTRUMENT ABS NEUTROPHIL CT 5.7 K/uL; LYMPHOCYTE COUNT 1.3 K/uL (1.0-2.8); MCH 30.3 PG (29.0-34.0); MCHC 30.2 G/DL (30.0-36.0); MCV 100.4 FL (86-99); MONOCYTE (%) 7.2 % (3-12); MONOCYTE COUNT 0.6 K/uL (0-0.8); NEUTROPHIL (%) 72.2 % (45-76); NEUTROPHIL COUNT 5.7 K/uL (1.8-6.4); PLATELET COUNT 287 K/uL (156-360); RBC DIS.WIDTH-CV 17.5 % (11.8-14.6); RBC DIS.WIDTH-SD 63.1 % (39-53); RED BLOOD COUNT 2.77 M/uL (4.00-5.50); WHITE BLOOD COUNT 7.9 K/uL (4.1-10.2)
[2017-08-17 07:38] LABS: ALKALINE PHOSPHATASE 69 IU/L (3-129); ANION GAP 8 MEQ/L (2-14); CHLORIDE 108 MEQ/L (99-109); GFR ESTIMATE (CALCULATED) > 59 mL/min/; GLUCOSE 122 mg/dL (70-99); MAGNESIUM 1.5 mg/dl (1.3-2.7); POTASSIUM 3.9 MEQ/L (3.7-5.4); SAMPLE HEMOLYSIS CHECK 0; SAMPLE ICTERIC CHECK 0; SAMPLE LIPEMIA CHECK 0; SODIUM 140 MEQ/L (136-147); UREA NITROGEN (BUN) 25 mg/dL (9-23)
[2017-08-17 07:42] LABS: TOTAL BILIRUBIN 0.5 MG/DL (0.0-1.0)
[2017-08-18] VITALS (7 sets, daily range): BP systolic 119–156; BP diastolic 73–99
[2017-08-19] VITALS: BP 152/92
[2017-08-19 04:00] VITALS: BP 142/74
[2017-08-19 08:00] VITALS: BP 161/117
[2017-08-19] MEDS ORDERED: BUSPAR15 MG PO (11:13)
[2017-08-19] MEDS ORDERED: Thiamine,Vitamin B1 PO (11:13)
[2017-08-19] MEDS ORDERED: FOLIC ACID1 MG PO (11:13)
[2017-08-19] MEDS ORDERED: THERAGRAN1 TABLET PO (11:13)
[2017-08-19 12:00] VITALS: BP 150/95
== END 2017-08-19 13:12 | disposition home or self-care (01) | DRG 392 ==
LOC: EME → EDBD 05:29 → EDOF 13:39 → ENRESERV 13:51 → 5WEST 15:57 → ENRESERV 19:58 → CANRESERV 23:12 → ENRESERV 23:12 → 5WEST 08-16 13:46 → ENRESERV 08-16 13:47 → 4WEST 08-16 15:44
PROVIDERS: Emergency Medicine; Internal Medicine; Student in an Organized Health Care Education/Training Program
DX: K29.20 Alcoholic gastritis without bleeding (principal); F10.251 Alcohol dependence with alcohol-induced psychotic disorder with hallucinations; I16.1 Hypertensive emergency; K92.1 Melena; F10.288 Alcohol dependence with other alcohol-induced disorder; F10.239 Alcohol dependence with withdrawal, unspecified; Z86.711 Personal history of pulmonary embolism; J44.9 Chronic obstructive pulmonary disease, unspecified; I25.10 Atherosclerotic heart disease of native coronary artery without angina pectoris; G40.909 Epilepsy, unspecified, not intractable, without status epilepticus; F32.9 Major depressive disorder, single episode, unspecified; K92.0 Hematemesis; F17.200 Nicotine dependence, unspecified, uncomplicated; Y90.8 Blood alcohol level of 240 mg/100 ml or more; G62.9 Polyneuropathy, unspecified; S00.81XA Abrasion of other part of head, initial encounter; Z79.899 Other long term (current) drug therapy; Z86.73 Personal history of transient ischemic attack (TIA), and cerebral infarction without residual deficits
CPT/HCPCS: 80053; 81003; 82272; 83690; 83735; 84100; 85025; 85025 91; 85027; 85610; 86850; 86900; 86901; 87641; 94640; 94640 76; 94760; 94799; 99202; 99281; 99285; C1753; C9113; G0480; J1170; J2060; J2405; J3411; J7030

== ENCOUNTER 2017-08-27 00:29 | Inpatient (IN) | payer OTHER ==
[~2017-08-27] VITALS: Ht 165.1 cm; Wt 81.4 kg
[~2017-08-27 00:29] MED LIST changes: +THERAGRAN1 TABLET PO
[2017-08-27 01:22] LABS: CHLORIDE 107 mEq/L (99-109); POTASSIUM 3.7 mEq/L (3.7-5.4); SODIUM 142 mEq/L (136-147)
[2017-08-27 01:24] LABS: GLUCOSE 106 mg/dL (70-99)
[2017-08-27 01:25] LABS: ANION GAP 14 MEQ/L (2-14)
[2017-08-27 01:26] LABS: TOTAL BILIRUBIN 0.5 mg/dL (0.0-1.0)
[2017-08-27 01:27] LABS: ALKALINE PHOSPHATASE 106 IU/L (3-129); HEMATOCRIT 38.6 % (38.0-50.0); MCH 29.7 PG (29.0-34.0); MCHC 31.9 G/DL (30.0-36.0); MCV 93.2 FL (86-99); MEAN PLAT.VOLUME 8.6 uM^3 (9.0-12.4); PLATELET COUNT 476 K/uL (156-360); RBC DIS.WIDTH-CV 17.2 % (11.8-14.6); RBC DIS.WIDTH-SD 58.7 % (39-53); RED BLOOD COUNT 4.14 M/uL (4.00-5.50); WHITE BLOOD COUNT 10.2 K/uL (4.1-10.2)
[2017-08-27 01:28] LABS: GFR ESTIMATE (CALCULATED) > 59 mL/min/
[2017-08-27 01:29] LABS: UREA NITROGEN (BUN) 12 mg/dL (9-23)
[2017-08-27 04:33] LABS: LIPASE 22 U/L (1.0-51.0)
[2017-08-27 08:05] LABS: SERUM ETHYL ALCOHOL < 10 mg/dL
[2017-08-27 08:23] LABS: ADD MIUA? YES; BILIRUBIN NEGATIVE; BLOOD NEGATIVE; COLOR DK YELLOW ((YELLOW)); GLUCOSE (STRIP) NEGATIVE; KETONES 5; LEUKOCYTES NEGATIVE; NITRITE NEGATIVE; PROTEIN (STRIP) 100; SPECIFIC GRAVITY 1.024 (1.000-1.030)
[2017-08-27 08:26] LABS: MAGNESIUM 2.2 mg/dL (1.3-2.7)
[2017-08-27 08:30] LABS: BACTERIA NONE SEEN /HPF; EPITHELIAL CELLS RARE /HPF; GRANULAR CASTS 0-5 /LPF; HYALINE CASTS 30-40 /LPF; MUCUS 1+ /LPF; RED BLOOD CELLS 0-5 /HPF (0-5); UCUL ADDED? NO; WHITE BLOOD CELLS 0-5 /HPF (0-5)
[2017-08-27] MEDS ORDERED: BUSPIRONE HCL30 MG PO (08:32)
[2017-08-27 10:45] VITALS: BP 163/87
[2017-08-27 17:13] VITALS: BP 157/97
[2017-08-27 19:45] VITALS: BP 131/74
[2017-08-28 00:18] VITALS: BP 103/62
[2017-08-28 03:50] VITALS: BP 101/65
[2017-08-28 07:47] VITALS: BP 142/87
[2017-08-28 07:52] LABS: ANION GAP 7 MEQ/L (2-14); CHLORIDE 110 MEQ/L (99-109); GFR ESTIMATE (CALCULATED) > 59 mL/min/; GLUCOSE 85 mg/dL (70-99); POTASSIUM 3.8 MEQ/L (3.7-5.4); SAMPLE HEMOLYSIS CHECK 0; SAMPLE ICTERIC CHECK 0; SAMPLE LIPEMIA CHECK 0; SODIUM 138 MEQ/L (136-147); UREA NITROGEN (BUN) 12 mg/dL (9-23)
[2017-08-28 15:26] VITALS: BP 106/68
[2017-08-28 15:44] VITALS: BP 137/80
[2017-08-28 19:46] VITALS: BP 112/79
[2017-08-29 00:33] VITALS: BP 119/65
[2017-08-29 04:30] VITALS: BP 206/112
[2017-08-29 06:40] VITALS: BP 206/112
== END 2017-08-29 11:12 | disposition left against medical advice (07) | DRG 392 ==
LOC: EME 00:29 → EDOF 07:41 → 5SOUTH 07:41 → ENRESERV 08:04 → CANRESERV 08:04 → ENRESERV 08:37 → 5SOUTH 10:36
PROVIDERS: Internal Medicine
PROC: 02HV33Z Insertion of Infusion Device into Superior Vena Cava, Percutaneous Approach (ICD-10-PCS; principal; 2017-08-27)
DX: K52.9 Noninfective gastroenteritis and colitis, unspecified (principal); K86.1 Other chronic pancreatitis; F10.239 Alcohol dependence with withdrawal, unspecified; Y90.0 Blood alcohol level of less than 20 mg/100 ml; F11.90 Opioid use, unspecified, uncomplicated; I10 Essential (primary) hypertension; I16.0 Hypertensive urgency; I25.10 Atherosclerotic heart disease of native coronary artery without angina pectoris; J44.9 Chronic obstructive pulmonary disease, unspecified; G62.9 Polyneuropathy, unspecified; F41.9 Anxiety disorder, unspecified; F17.200 Nicotine dependence, unspecified, uncomplicated; Z86.711 Personal history of pulmonary embolism; Z86.718 Personal history of other venous thrombosis and embolism; Z86.73 Personal history of transient ischemic attack (TIA), and cerebral infarction without residual deficits; Z91.14 Patient's other noncompliance with medication regimen; Z23 Encounter for immunization
CPT/HCPCS: 71010; 74176; 80048; 80053; 81003; 83605; 83690; 83735; 85027; 87040; 87493; 87506; 90686; 94640; 94640 76; 94799; 99202; 99281; 99285; C9113; G0480; J0744; J2060; J2405; J2765; J3010; J3411; J7030; S0028; S0030

== ENCOUNTER 2017-09-01 04:22 | Inpatient (IN) | payer OTHER ==
[~2017-09-01] VITALS: Ht 165.1 cm; Wt 83.6 kg
[~2017-09-01 04:22] MED LIST changes: +BUSPIRONE HCL30 MG PO; +CATAPRES0.2 MG PO
[2017-09-01 05:00] LABS: BASOPHIL COUNT 0.1 K/uL (0-0.1); EOSINOPHIL (%) 1.1 % (0-5); EOSINOPHIL COUNT 0.1 K/uL (0-0.3); IMMATURE GRANULOCYTE (%) 0.3 % (0.0-0.7); INSTRUMENT ABS NEUTROPHIL CT 3.8 K/uL; LYMPHOCYTE COUNT 2.6 K/uL (1.0-2.8); MCH 29.6 PG (29.0-34.0); MCHC 31.9 G/DL (30.0-36.0); MCV 92.5 FL (86-99); MEAN PLAT.VOLUME 8.4 uM^3 (9.0-12.4); MONOCYTE (%) 7.9 % (3-12); MONOCYTE COUNT 0.6 K/uL (0-0.8); NEUTROPHIL (%) 53.3 % (45-76); NEUTROPHIL COUNT 3.8 K/uL (1.8-6.4); PLATELET COUNT 537 K/uL (156-360); RBC DIS.WIDTH-CV 17.2 % (11.8-14.6); RBC DIS.WIDTH-SD 58.8 % (39-53); RED BLOOD COUNT 3.89 M/uL (4.00-5.50); WHITE BLOOD COUNT 7.1 K/uL (4.1-10.2)
[2017-09-01 05:06] LABS: INTER. NORMALIZED RATIO 1.8
[2017-09-01 05:08] LABS: CHLORIDE 103 mEq/L (99-109); POTASSIUM 3.5 mEq/L (3.7-5.4); SODIUM 142 mEq/L (136-147)
[2017-09-01 05:09] LABS: PROTHROMBIN TIME 20.6 SEC (10.2-12.9); PTT 31.4 SEC (25-37)
[2017-09-01 05:11] LABS: GLUCOSE 63 mg/dL (70-99)
[2017-09-01 05:12] LABS: ANION GAP 19 MEQ/L (2-14); TOTAL BILIRUBIN 0.4 mg/dL (0.0-1.0)
[2017-09-01 05:13] LABS: SERUM ETHYL ALCOHOL 144 mg/dL
[2017-09-01 05:14] LABS: ALKALINE PHOSPHATASE 88 IU/L (3-129); GFR ESTIMATE (CALCULATED) > 59 mL/min/
[2017-09-01 05:15] LABS: UREA NITROGEN (BUN) 14 mg/dL (9-23)
[2017-09-01 05:16] LABS: DIRECT BILIRUBIN 0.2 mg/dL (0.0-0.3)
[2017-09-01 05:18] LABS: LIPASE 27 U/L (1.0-51.0)
[2017-09-01 05:21] LABS: TROP-I INTERPRETATION NEGATIVE; TROPONIN-I 0.01 ng/mL (0.0-0.30)
[2017-09-01 09:15] VITALS: BP 184/118
[2017-09-01 10:40] VITALS: BP 182/109
[2017-09-01 10:42] LABS: TROP-I INTERPRETATION NEGATIVE; TROPONIN-I 0.02 ng/mL (0.0-0.30)
[2017-09-01 12:49] LABS: POINT-OF-CARE METER ID UU14162513
[2017-09-01 17:00] VITALS: BP 129/90
[2017-09-01 17:01] LABS: TROP-I INTERPRETATION NEGATIVE; TROPONIN-I 0.03 ng/mL (0.0-0.30)
[2017-09-01 18:22] LABS: ADD MIUA? NO; BILIRUBIN NEGATIVE; BLOOD NEGATIVE; COLOR YELLOW ((YELLOW)); GLUCOSE (STRIP) NEGATIVE; KETONES 20; LEUKOCYTES NEGATIVE; NITRITE NEGATIVE; PROTEIN (STRIP) NEGATIVE; UROBILINOGEN 0.2 MG/DL (0.2-1.0)
[2017-09-01 18:36] LABS: COCAINE NEGATIVE (150 ng/mL); PHENCYCLIDINE NEGATIVE (25 ng/mL); THC CANNABINOIDS NEGATIVE (50 ng/mL)
[2017-09-01 18:37] LABS: ADD MEDTOX COMMENT Y; AMPHETAMINE NEGATIVE (500 ng/mL); BARBITURATES NEGATIVE (200 ng/mL); BENZODIAZEPINES PRESUMPTIVE POSITIVE (150 ng/mL); INTERNAL CONTROLS VALID? YES; METHADONE NEGATIVE (200 ng/mL); METHAMPHETAMINE NEGATIVE (500 ng/mL); OPIATES (MORPHINE) PRESUMPTIVE POSITIVE (100 ng/mL); OXYCODONE NEGATIVE (100 ng/mL); PROPOXYPHENE NEGATIVE (300 ng/mL); TRICYCLIC ANTIDEPRESSANTS PRESUMPTIVE POSITIVE (300 ng/mL)
[2017-09-01 19:00] LABS: BENZODIAZEPINES, URINE SCREEN POSITIVE (200 ng/mL)
[2017-09-01 21:04] VITALS: BP 127/74
[2017-09-01 22:15] LABS: POINT-OF-CARE METER ID UU14162513
[2017-09-01 23:45] VITALS: BP 77/47
[2017-09-02 01:02] LABS: POINT-OF-CARE METER ID UU14162513
[2017-09-02 01:56] LABS: BASOPHIL COUNT 0.1 K/uL (0-0.1); EOSINOPHIL COUNT 0.1 K/uL (0-0.3); HEMATOCRIT 26.5 % (38.0-50.0); IMMATURE GRANULOCYTE (%) 0.2 % (0.0-0.7); INSTRUMENT ABS NEUTROPHIL CT 2.2 K/uL; LYMPHOCYTE COUNT 1.6 K/uL (1.0-2.8); MCH 30.1 PG (29.0-34.0); MCHC 31.3 G/DL (30.0-36.0); MONOCYTE (%) 16.4 % (3-12); MONOCYTE COUNT 0.8 K/uL (0-0.8); NEUTROPHIL (%) 45.9 % (45-76); NEUTROPHIL COUNT 2.2 K/uL (1.8-6.4); RBC DIS.WIDTH-CV 17.6 % (11.8-14.6); RBC DIS.WIDTH-SD 62.6 % (39-53); WHITE BLOOD COUNT 4.7 K/uL (4.1-10.2)
[2017-09-02 01:59] LABS: RED BLOOD COUNT 2.76 M/uL (4.00-5.50)
[2017-09-02 02:00] VITALS: BP 90/60
[2017-09-02 02:03] LABS: CHLORIDE 105 mEq/L (99-109); SODIUM 138 mEq/L (136-147)
[2017-09-02 02:07] LABS: ANION GAP 8 MEQ/L (2-14)
[2017-09-02 02:08] LABS: TOTAL BILIRUBIN 0.4 mg/dL (0.0-1.0)
[2017-09-02 02:09] LABS: ALKALINE PHOSPHATASE 59 IU/L (3-129)
[2017-09-02 02:10] LABS: GFR ESTIMATE (CALCULATED) > 59 mL/min/; GLUCOSE 124 mg/dL (70-99); MAGNESIUM 1.5 mg/dL (1.3-2.7)
[2017-09-02 02:10] LABS: POINT-OF-CARE METER ID UU14174216
[2017-09-02 02:11] LABS: UREA NITROGEN (BUN) 14 mg/dL (9-23)
[2017-09-02 02:13] LABS: TROP-I INTERPRETATION NEGATIVE; TROPONIN-I 0.01 ng/mL (0.0-0.30)
[2017-09-02] MEDS ORDERED: TIMOLOL MALEATE5 ML BOTH EYES (02:19)
[2017-09-02 02:29] LABS: MEAN PLAT.VOLUME 8.4 uM^3 (9.0-12.4); PLAT.SUFFICIENCY ADEQUATE
[2017-09-02 02:58] LABS: HEMATOCRIT 28.3 % (38.0-50.0); MCV 95.6 FL (86-99)
[2017-09-02 03:37] VITALS: BP 109/65
[2017-09-02 06:03] LABS: PLATELET COUNT 361 K/uL (156-360)
[2017-09-02 06:22] LABS: POINT-OF-CARE METER ID UU14174216
[2017-09-02 06:23] LABS: ANION GAP 8 MEQ/L (2-14); CHLORIDE 104 MEQ/L (99-109); GFR ESTIMATE (CALCULATED) > 59 mL/min/; GLUCOSE 140 mg/dL (70-99); POTASSIUM 4.3 MEQ/L (3.7-5.4); SAMPLE HEMOLYSIS CHECK 0; SAMPLE ICTERIC CHECK 0; SAMPLE LIPEMIA CHECK 0; SODIUM 137 MEQ/L (136-147); UREA NITROGEN (BUN) 12 mg/dL (9-23)
[2017-09-02 08:01] LABS: MCV 97.3 FL (86-99)
[2017-09-02 09:49] VITALS: BP 112/62
[2017-09-02 11:39] LABS: POINT-OF-CARE METER ID UU14174216
[2017-09-02 12:35] VITALS: BP 127/85
[2017-09-02 14:55] LABS: POINT-OF-CARE METER ID UU13113781
[2017-09-02 15:30] VITALS: BP 138/80
[2017-09-02 16:26] LABS: HEMATOCRIT 29.6 % (38.0-50.0); MCV 95.2 FL (86-99)
[2017-09-02 18:13] LABS: POINT-OF-CARE METER ID UU14174216
[2017-09-02 20:59] LABS: HEMATOCRIT 28.9 % (38.0-50.0); MCV 94.8 FL (86-99)
[2017-09-03] VITALS (7 sets, daily range): BP systolic 131–191; BP diastolic 78–102
[2017-09-03 02:34] LABS: POINT-OF-CARE METER ID UU13113781
[2017-09-03 06:06] LABS: EOSINOPHIL (%) 0 % (0-5); HEMATOCRIT 28.2 % (38.0-50.0); IMMATURE GRANULOCYTE (%) 0.4 % (0.0-0.7); INSTRUMENT ABS NEUTROPHIL CT 9.1 K/uL; LYMPHOCYTE COUNT 0.6 K/uL (1.0-2.8); MCHC 30.9 G/DL (30.0-36.0); MONOCYTE COUNT 0.5 K/uL (0-0.8); NEUTROPHIL (%) 88.8 % (45-76); NEUTROPHIL COUNT 9.1 K/uL (1.8-6.4); PLATELET COUNT 434 K/uL (156-360); RBC DIS.WIDTH-CV 16.8 % (11.8-14.6); RBC DIS.WIDTH-SD 58.2 % (39-53); WHITE BLOOD COUNT 10.2 K/uL (4.1-10.2)
[2017-09-03 06:16] LABS: POINT-OF-CARE METER ID UU14174216
[2017-09-03 07:23] LABS: ALKALINE PHOSPHATASE 60 IU/L (3-129); ANION GAP 7 MEQ/L (2-14); CHLORIDE 104 MEQ/L (99-109); GFR ESTIMATE (CALCULATED) > 59 mL/min/; GLUCOSE 172 mg/dL (70-99); POTASSIUM 4.9 MEQ/L (3.7-5.4); SAMPLE HEMOLYSIS CHECK 0; SAMPLE ICTERIC CHECK 0; SAMPLE LIPEMIA CHECK 0; SODIUM 138 MEQ/L (136-147); TOTAL BILIRUBIN 0.3 MG/DL (0.0-1.0); UREA NITROGEN (BUN) 16 mg/dL (9-23)
[2017-09-03 10:30] LABS: POINT-OF-CARE METER ID UU13113781
[2017-09-03 13:53] LABS: POINT-OF-CARE METER ID UU13113774
[2017-09-03 16:20] LABS: POINT-OF-CARE METER ID UU13113725
[2017-09-03 18:00] LABS: POINT-OF-CARE METER ID UU13113774
[2017-09-03 21:32] LABS: POINT-OF-CARE METER ID UU13113774
[2017-09-03 22:20] LABS: TROP-I INTERPRETATION NEGATIVE; TROPONIN-I < 0.01 ng/mL (0.0-0.30)
[2017-09-04 03:34] LABS: POINT-OF-CARE METER ID UU13113774
[2017-09-04 06:13] LABS: POINT-OF-CARE METER ID UU13113725
[2017-09-04 08:00] VITALS: BP 186/106
[2017-09-04 10:32] VITALS: BP 144/92
[2017-09-04 10:40] LABS: POINT-OF-CARE METER ID UU13113774
[2017-09-04 15:05] LABS: POINT-OF-CARE METER ID UU13113774
[2017-09-04 17:20] LABS: POINT-OF-CARE METER ID UU13113725
[2017-09-04 21:41] LABS: POINT-OF-CARE METER ID UU13113774
[2017-09-05 02:24] LABS: POINT-OF-CARE METER ID UU13113774
[2017-09-05 06:01] LABS: POINT-OF-CARE METER ID UU13113725
[2017-09-05 08:15] VITALS: BP 140/88
[2017-09-05 11:39] LABS: POINT-OF-CARE METER ID UU13113725
[2017-09-05 13:00] VITALS: BP 171/81
[2017-09-05 16:31] LABS: POINT-OF-CARE METER ID UU13113725
[2017-09-05 16:36] VITALS: BP 160/95; BP 165/79
[2017-09-05 21:31] LABS: POINT-OF-CARE METER ID UU13113725
[2017-09-05 21:39] VITALS: BP 190/97
[2017-09-05 23:27] VITALS: BP 168/80
[2017-09-06 01:57] VITALS: BP 153/80
[2017-09-06 02:32] LABS: C DIFF TOXIN NEGATIVE (NEGATIVE)
[2017-09-06 02:34] LABS: PROBE CHECK PASS; SPECIMEN PROCESSING CONTROL PASS
[2017-09-06 06:18] LABS: POINT-OF-CARE METER ID UU13113725
[2017-09-06 07:40] VITALS: BP 197/98
[2017-09-06] MEDS ORDERED: SUBOXONE 8 MG-1 EAC2 SL (08:51)
[2017-09-06 09:07] VITALS: BP 142/74
[2017-09-06 11:34] LABS: POINT-OF-CARE METER ID UU13113725
[2017-09-06 16:46] VITALS: BP 106/71
[2017-09-06 16:46] LABS: POINT-OF-CARE METER ID UU13113725
[2017-09-06 21:06] VITALS: BP 124/82
[2017-09-06 21:49] LABS: POINT-OF-CARE METER ID UU13113725
[2017-09-07 00:07] VITALS: BP 132/76
[2017-09-07 06:47] LABS: POINT-OF-CARE METER ID UU13113725
[2017-09-07 07:18] VITALS: BP 118/70
[2017-09-07 08:51] VITALS: BP 152/72
[2017-09-07] MEDS ORDERED: VENTOLIN HFA18 GM IH (11:27)
[2017-09-07] MEDS ORDERED: SPIRIVA RESPIMAT4 GM IH (11:27)
[2017-09-07] MEDS ORDERED: PREDNISONE10 MG PO (11:29)
[2017-09-07] MEDS ORDERED: ADVAIR HFA120 INHALA IH (11:30)
[2017-09-07 11:38] LABS: POINT-OF-CARE METER ID UU13113725
== END 2017-09-07 13:35 | disposition home or self-care (01) | DRG 314 ==
LOC: EME → EDBD 04:22 → EME 04:22 → EDOF 07:40 → ENRESERV 07:43 → CANRESERV 08:00 → ENRESERV 08:38 → CANRESERV 08:38 → ENRESERV 08:59 → 5WEST 09:27 → 4EAST 09-02 01:17 → 5WEST 09-02 01:17 → 5EAST 09-02 01:17 → 5WEST 09-02 01:17 → ENRESERV 09-02 01:18 → 4EAST 09-02 01:27 → ENRESERV 09-03 10:39 → 5EAST 09-03 12:11
PROVIDERS: Emergency Medicine; Hospitalist; Internal Medicine; Physician Assistant Medical
DX: I95.9 Hypotension, unspecified (principal); J44.1 Chronic obstructive pulmonary disease with (acute) exacerbation; K86.0 Alcohol-induced chronic pancreatitis; R41.82 Altered mental status, unspecified; I25.10 Atherosclerotic heart disease of native coronary artery without angina pectoris; R55 Syncope and collapse; J96.01 Acute respiratory failure with hypoxia; G62.9 Polyneuropathy, unspecified; R56.9 Unspecified convulsions; E16.2 Hypoglycemia, unspecified; H57.02 Anisocoria; K44.9 Diaphragmatic hernia without obstruction or gangrene; F10.239 Alcohol dependence with withdrawal, unspecified; I10 Essential (primary) hypertension; F10.288 Alcohol dependence with other alcohol-induced disorder; R07.89 Other chest pain; G40.909 Epilepsy, unspecified, not intractable, without status epilepticus; E87.6 Hypokalemia; F11.10 Opioid abuse, uncomplicated; F17.210 Nicotine dependence, cigarettes, uncomplicated; E78.5 Hyperlipidemia, unspecified; H40.9 Unspecified glaucoma; F31.9 Bipolar disorder, unspecified; Z91.14 Patient's other noncompliance with medication regimen; Z86.711 Personal history of pulmonary embolism; Z79.82 Long term (current) use of aspirin; Z88.6 Allergy status to analgesic agent; Z91.013 Allergy to seafood; Z86.718 Personal history of other venous thrombosis and embolism; Z86.73 Personal history of transient ischemic attack (TIA), and cerebral infarction without residual deficits; Z91.19 Patient's noncompliance with other medical treatment and regimen; Z82.49 Family history of ischemic heart disease and other diseases of the circulatory system; Z79.899 Other long term (current) drug therapy; Z76.5 Malingerer [conscious simulation]; D64.9 Anemia, unspecified; G89.29 Other chronic pain; G93.40 Encephalopathy, unspecified; K59.00 Constipation, unspecified; J20.9 Acute bronchitis, unspecified; J44.0 Chronic obstructive pulmonary disease with (acute) lower respiratory infection; F19.10 Other psychoactive substance abuse, uncomplicated
CPT/HCPCS: 70450; 71010; 71250; 74176; 76937; 78582; 80048; 80053; 80076; 81003; 82140; 82948; 83605; 83690; 83735; 84100; 84484; 84999; 85014; 85018; 85025; 85027; 85379; 85610; 85730; 86850; 86900; 86901; 87040; 87493; 93005; 94640; 94640 76; 94760; 94799; 99202; 99281; 99285; A9540; A9567; C1753; C1894; G0378; G0480; J0295; J0456; J0574; J1170; J1650; J1815; J2060; J2270; J2405; J2930; J3010; J3411; J3475; J7030; J7050; S0028

== ENCOUNTER 2017-09-10 05:12 | Inpatient (IN) | payer OTHER ==
[~2017-09-10] VITALS: Ht 165.1 cm; Wt 76.4 kg
[~2017-09-10 05:12] MED LIST changes: +PREDNISONE10 MG PO; +SPIRIVA RESPIMAT4 GM IH; +TIMOLOL MALEATE5 ML BOTH EYES
[2017-09-10 05:58] LABS: INTER. NORMALIZED RATIO 2.2; PROTHROMBIN TIME 24.9 SEC (10.2-12.9)
[2017-09-10 06:00] LABS: PTT 30.6 SEC (25-37)
[2017-09-10 06:01] LABS: EOSINOPHIL (%) 1.2 % (0-5); EOSINOPHIL COUNT 0.1 K/uL (0-0.3); HEMATOCRIT 35.6 % (38.0-50.0); IMMATURE GRANULOCYTE (%) 0.4 % (0.0-0.7); INSTRUMENT ABS NEUTROPHIL CT 6.5 K/uL; LYMPHOCYTE COUNT 2.1 K/uL (1.0-2.8); MCH 28.8 PG (29.0-34.0); MCHC 32.3 G/DL (30.0-36.0); MEAN PLAT.VOLUME 9.3 uM^3 (9.0-12.4); MONOCYTE (%) 12.9 % (3-12); MONOCYTE COUNT 1.3 K/uL (0-0.8); NEUTROPHIL (%) 64.7 % (45-76); NEUTROPHIL COUNT 6.5 K/uL (1.8-6.4); PLATELET COUNT 478 K/uL (156-360); RBC DIS.WIDTH-CV 16.9 % (11.8-14.6)
[2017-09-10 06:03] LABS: CHLORIDE 104 mEq/L (99-109); POTASSIUM 3.7 mEq/L (3.7-5.4); SODIUM 141 mEq/L (136-147)
[2017-09-10 06:05] LABS: GLUCOSE 157 mg/dL (70-99)
[2017-09-10 06:06] LABS: ANION GAP 17 MEQ/L (2-14)
[2017-09-10 06:08] LABS: GFR ESTIMATE (CALCULATED) > 59 mL/min/
[2017-09-10 06:09] LABS: UREA NITROGEN (BUN) 33 mg/dL (9-23)
[2017-09-10 06:11] LABS: CREATINE KINASE 36 IU/L (1-294)
[2017-09-10 06:13] LABS: TROP-I INTERPRETATION NEGATIVE; TROPONIN-I 0.05 ng/mL (0.0-0.30)
[2017-09-10] MEDS ORDERED: VENTOLIN HFA18 GM IH (09:26)
[2017-09-10] MEDS ORDERED: COMBIVENT RESPIM4 GM IH (09:29)
[2017-09-10 10:43] VITALS: BP 136/85
[2017-09-10 11:29] VITALS: BP 110/66
[2017-09-10 11:47] LABS: TROP-I INTERPRETATION NEGATIVE; TROPONIN-I 0.08 ng/mL (0.0-0.30)
[2017-09-10 16:19] VITALS: BP 102/53
[2017-09-10 18:59] LABS: TROP-I INTERPRETATION NEGATIVE; TROPONIN-I 0.03 ng/mL (0.0-0.30)
[2017-09-10 19:16] VITALS: BP 94/55
[2017-09-10 23:28] VITALS: BP 90/52
[2017-09-11 03:34] VITALS: BP 95/58
[2017-09-11 06:40] LABS: HEMATOCRIT 30.9 % (38.0-50.0); MCH 28.8 PG (29.0-34.0); MCHC 31.1 G/DL (30.0-36.0); MCV 92.8 FL (86-99); MEAN PLAT.VOLUME 9.4 uM^3 (9.0-12.4); PLATELET COUNT 392 K/uL (156-360); RBC DIS.WIDTH-CV 17.1 % (11.8-14.6); RBC DIS.WIDTH-SD 58.9 % (39-53); RED BLOOD COUNT 3.33 M/uL (4.00-5.50); WHITE BLOOD COUNT 7.9 K/uL (4.1-10.2)
[2017-09-11 07:02] LABS: ANION GAP 11 MEQ/L (2-14); CHLORIDE 108 MEQ/L (99-109); GFR ESTIMATE (CALCULATED) > 59 mL/min/; GLUCOSE 144 mg/dL (70-99); POTASSIUM 4.8 MEQ/L (3.7-5.4); SAMPLE HEMOLYSIS CHECK 0; SAMPLE ICTERIC CHECK 0; SAMPLE LIPEMIA CHECK 0; SODIUM 141 MEQ/L (136-147); UREA NITROGEN (BUN) 36 mg/dL (9-23)
[2017-09-11 08:13] VITALS: BP 105/64
[2017-09-11 10:09] LABS: INTER. NORMALIZED RATIO 1.7
[2017-09-11 11:33] VITALS: BP 133/64
[2017-09-11 15:33] LABS: ALKALINE PHOSPHATASE 65 IU/L (3-129); DIRECT BILIRUBIN 0.1 mg/dL (0.0-0.3); TOTAL BILIRUBIN 0.4 MG/DL (0.0-1.0)
[2017-09-11 16:18] VITALS: BP 117/67
[2017-09-11 19:09] VITALS: BP 114/63
[2017-09-11 22:59] VITALS: BP 130/66
[2017-09-12 06:50] LABS: HEMATOCRIT 28.1 % (38.0-50.0); MCH 28.9 PG (29.0-34.0); MCHC 29.9 G/DL (30.0-36.0); MCV 96.6 FL (86-99); MEAN PLAT.VOLUME 9.5 uM^3 (9.0-12.4); PLATELET COUNT 348 K/uL (156-360); RBC DIS.WIDTH-CV 17.2 % (11.8-14.6); RBC DIS.WIDTH-SD 61.9 % (39-53); RED BLOOD COUNT 2.91 M/uL (4.00-5.50); WHITE BLOOD COUNT 10.7 K/uL (4.1-10.2)
[2017-09-12 07:33] LABS: ALKALINE PHOSPHATASE 51 IU/L (3-129); ANION GAP 10 MEQ/L (2-14); CHLORIDE 109 MEQ/L (99-109); GFR ESTIMATE (CALCULATED) > 59 mL/min/; GLUCOSE 165 mg/dL (70-99); POTASSIUM 5.1 MEQ/L (3.7-5.4); SAMPLE HEMOLYSIS CHECK 0; SAMPLE ICTERIC CHECK 0; SAMPLE LIPEMIA CHECK 0; SODIUM 141 MEQ/L (136-147); UREA NITROGEN (BUN) 41 mg/dL (9-23)
[2017-09-12 07:38] LABS: TOTAL BILIRUBIN 0.3 MG/DL (0.0-1.0)
[2017-09-12 08:00] VITALS: BP 141/81
[2017-09-12 11:37] LABS: INTER. NORMALIZED RATIO 1.2; PROTHROMBIN TIME 13.3 SEC (10.2-12.9)
[2017-09-12 11:40] LABS: PTT 27.3 SEC (25-37)
[2017-09-12 11:57] VITALS: BP 135/77
[2017-09-12 15:07] VITALS: BP 135/81
[2017-09-12 19:54] VITALS: BP 156/87
[2017-09-12 23:42] VITALS: BP 130/77
[2017-09-13 07:51] VITALS: BP 128/78
[2017-09-13 12:37] VITALS: BP 130/77
[2017-09-13 15:25] VITALS: BP 170/100
[2017-09-13 19:18] VITALS: BP 157/97
[2017-09-13 23:03] VITALS: BP 140/79
[2017-09-14 05:19] VITALS: BP 165/94
[2017-09-14 08:30] VITALS: BP 178/97
[2017-09-14 11:23] VITALS: BP 188/108
[2017-09-14 15:29] VITALS: BP 168/98
[2017-09-14 19:30] VITALS: BP 180/94
[2017-09-14 23:05] VITALS: BP 150/81
[2017-09-15 03:32] VITALS: BP 145/88
[2017-09-15 08:05] VITALS: BP 193/105
[2017-09-15 11:47] VITALS: BP 167/89
[2017-09-15 12:48] VITALS: BP 163/88
[2017-09-15 15:36] VITALS: BP 176/93
[2017-09-15 22:49] VITALS: BP 154/80
[2017-09-16 08:23] VITALS: BP 170/82
[2017-09-16 11:45] VITALS: BP 164/88
[2017-09-16 16:34] VITALS: BP 191/93
[2017-09-16 19:08] VITALS: BP 180/94
[2017-09-16 23:50] VITALS: BP 178/98
[2017-09-17 03:42] VITALS: BP 147/81
[2017-09-17 08:16] VITALS: BP 169/83
[2017-09-17] MEDS ORDERED: VENTOLIN HFA18 GM IH (11:29)
[2017-09-17] MEDS ORDERED: COMBIVENT RESPIM4 GM IH (11:29)
[2017-09-17] MEDS ORDERED: THIAMINE HCL100 MG PO (11:29)
[2017-09-17] MEDS ORDERED: SPIRIVA RESPIMAT4 GM IH (11:29)
[2017-09-17] MEDS ORDERED: NICOTINE PATCH1 EAC1 TD (11:29)
[2017-09-17] MEDS ORDERED: FOLIC ACID1 MG PO (11:29)
[2017-09-17] MEDS ORDERED: CATAPRES0.2 MG PO (11:29)
[2017-09-17] MEDS ORDERED: TIMOLOL MALEATE5 ML BOTH EYES (11:29)
[2017-09-17] MEDS ORDERED: DOXEPIN HCL100 MG PO (11:29)
[2017-09-17] MEDS ORDERED: LISINOPRIL20 MG PO (11:29)
[2017-09-17] MEDS ORDERED: DOXEPIN HCL25 MG PO (11:29)
[2017-09-17] MEDS ORDERED: THERAGRAN1 TABLET PO (11:29)
[2017-09-17] MEDS ORDERED: PREDNISONE10 MG PO (11:29)
[2017-09-17] MEDS ORDERED: TOPROL XL100 MG PO (11:29)
[2017-09-17] MEDS ORDERED: MUCINEX600 MG PO (11:29)
[2017-09-17] MEDS ORDERED: ADVAIR HFA120 INHALA IH (11:29)
[2017-09-17] MEDS ORDERED: WELLBUTRIN SR150 MG PO (11:29)
[2017-09-17] MEDS ORDERED: BUSPIRONE HCL30 MG PO (11:29)
[2017-09-17] MEDS ORDERED: APRESOLINE50 MG PO (11:29)
[2017-09-17 11:54] VITALS: BP 168/102
== END 2017-09-17 14:55 | disposition home or self-care (01) | DRG 191 ==
LOC: EME → EDBD 05:12 → EME 05:12 → 3EAST 07:39 → EDOF 07:39 → ENRESERV 07:42 → CANRESERV 07:42 → ENRESERV 08:04 → 3EAST 10:27
PROVIDERS: Emergency Medicine; Hospitalist; Internal Medicine
DX: J44.1 Chronic obstructive pulmonary disease with (acute) exacerbation (principal); I27.82 Chronic pulmonary embolism; T18.4XXA Foreign body in colon, initial encounter; D68.9 Coagulation defect, unspecified; J44.0 Chronic obstructive pulmonary disease with (acute) lower respiratory infection; J40 Bronchitis, not specified as acute or chronic; F17.200 Nicotine dependence, unspecified, uncomplicated; Z91.14 Patient's other noncompliance with medication regimen; K86.1 Other chronic pancreatitis; K76.9 Liver disease, unspecified; I10 Essential (primary) hypertension; I25.10 Atherosclerotic heart disease of native coronary artery without angina pectoris; Z86.718 Personal history of other venous thrombosis and embolism; Z86.73 Personal history of transient ischemic attack (TIA), and cerebral infarction without residual deficits; G40.909 Epilepsy, unspecified, not intractable, without status epilepticus; F31.9 Bipolar disorder, unspecified; J98.01 Acute bronchospasm; Z91.19 Patient's noncompliance with other medical treatment and regimen; F10.20 Alcohol dependence, uncomplicated; K59.00 Constipation, unspecified; E66.9 Obesity, unspecified; Z68.28 Body mass index [BMI] 28.0-28.9, adult
CPT/HCPCS: 71010; 71020; 71275; 74000; 74183; 76937; 80048; 80053; 80076; 82550; 83735; 84484; 85025; 85027; 85610; 85730; 87040; 87077; 87801; 93005; 93970; 94640; 94640 76; 94799; 99202; 99281; 99285; C1894; J0360; J0456; J0574; J0696; J1650; J2060; J2405; J2920; J2930; J3010; J3370; J3411; J7030; J7050; J7644

== ENCOUNTER 2017-09-28 12:51 | Emergency (ER) | payer OTHER ==
[~2017-09-28] VITALS: Ht 162.6 cm; Wt 82.6 kg
[~2017-09-28 12:51] MED LIST changes: +MUCINEX600 MG PO; +NICOTINE PATCH1 EAC1 TD
[2017-09-28 15:36] LABS: HEMATOCRIT 31.9 % (38.0-50.0); MCH 29.2 PG (29.0-34.0); MCHC 31.3 G/DL (30.0-36.0); MCV 93.3 FL (86-99); MEAN PLAT.VOLUME 8.9 uM^3 (9.0-12.4); PLATELET COUNT 261 K/uL (156-360); RED BLOOD COUNT 3.42 M/uL (4.00-5.50); WHITE BLOOD COUNT 7.1 K/uL (4.1-10.2)
[2017-09-28 15:46] LABS: CHLORIDE 109 mEq/L (99-109); POTASSIUM 4.1 mEq/L (3.7-5.4); SODIUM 139 mEq/L (136-147)
[2017-09-28 15:48] LABS: GLUCOSE 144 mg/dL (70-99)
[2017-09-28 15:50] LABS: ANION GAP 10 MEQ/L (2-14)
[2017-09-28 15:51] LABS: SERUM ETHYL ALCOHOL < 10 mg/dL
[2017-09-28 15:52] LABS: GFR ESTIMATE (CALCULATED) > 59 mL/min/
[2017-09-28 15:53] LABS: UREA NITROGEN (BUN) 16 mg/dL (9-23)
[2017-09-28 16:21] LABS: ADD MIUA? NO; BILIRUBIN NEGATIVE; BLOOD NEGATIVE; COLOR YELLOW ((YELLOW)); GLUCOSE (STRIP) NEGATIVE; KETONES NEGATIVE; LEUKOCYTES NEGATIVE; NITRITE NEGATIVE; PROTEIN (STRIP) NEGATIVE; SPECIFIC GRAVITY 1.012 (1.000-1.030); UCUL ADDED? NO; UROBILINOGEN 0.2 MG/DL (0.2-1.0)
[2017-09-28 16:30] LABS: PHENOBARBITAL < 5.0 MCG/ML (15-40)
[2017-09-28 16:45] LABS: AMPHETAMINE NEGATIVE (500 ng/mL); COCAINE NEGATIVE (150 ng/mL); METHAMPHETAMINE NEGATIVE (500 ng/mL); OPIATES (MORPHINE) NEGATIVE (100 ng/mL); PHENCYCLIDINE NEGATIVE (25 ng/mL); THC CANNABINOIDS NEGATIVE (50 ng/mL)
[2017-09-28 16:46] LABS: ADD MEDTOX COMMENT Y; BARBITURATES NEGATIVE (200 ng/mL); BENZODIAZEPINES PRESUMPTIVE POSITIVE (150 ng/mL); INTERNAL CONTROLS VALID? YES; METHADONE NEGATIVE (200 ng/mL); OXYCODONE NEGATIVE (100 ng/mL); PROPOXYPHENE NEGATIVE (300 ng/mL); TRICYCLIC ANTIDEPRESSANTS PRESUMPTIVE POSITIVE (300 ng/mL)
[2017-09-28 17:15] LABS: BENZODIAZEPINES, URINE SCREEN POSITIVE (200 ng/mL)
[2017-09-28] MEDS ORDERED: LIBRIUM25 MG PO (17:48)
[2017-09-28] MEDS ORDERED: KEPPRA750 MG PO (17:48)
[2017-09-28 18:06] VITALS: BP 163/114
== END 2017-09-28 18:07 | disposition home or self-care (01) ==
LOC: EME 12:51
PROVIDERS: Nurse Practitioner Family
DX: G40.909 Epilepsy, unspecified, not intractable, without status epilepticus (principal); F10.239 Alcohol dependence with withdrawal, unspecified; Y90.0 Blood alcohol level of less than 20 mg/100 ml; J44.9 Chronic obstructive pulmonary disease, unspecified; I10 Essential (primary) hypertension; K21.9 Gastro-esophageal reflux disease without esophagitis; F32.9 Major depressive disorder, single episode, unspecified; F41.9 Anxiety disorder, unspecified; F17.200 Nicotine dependence, unspecified, uncomplicated; Z86.73 Personal history of transient ischemic attack (TIA), and cerebral infarction without residual deficits; Z86.711 Personal history of pulmonary embolism; Z88.5 Allergy status to narcotic agent
CPT/HCPCS: 80048; 80156; 80184; 80185; 81003; 84999; 85027; 93005; 99281; 99284; G0480

== ENCOUNTER 2017-10-03 22:48 | Inpatient (IN) | payer OTHER ==
[~2017-10-03] VITALS: Ht 162.6 cm; Wt 81.0 kg
[~2017-10-03 22:48] MED LIST changes: +KEPPRA750 MG PO; +LIBRIUM25 MG PO
[2017-10-03 23:51] LABS: HEMATOCRIT 33.7 % (38.0-50.0); MCH 29.2 PG (29.0-34.0); MCHC 31.8 G/DL (30.0-36.0); MCV 91.8 FL (86-99); PLATELET COUNT 302 K/uL (156-360); RBC DIS.WIDTH-CV 18.6 % (11.8-14.6); RBC DIS.WIDTH-SD 63.1 % (39-53); RED BLOOD COUNT 3.67 M/uL (4.00-5.50); WHITE BLOOD COUNT 7.1 K/uL (4.1-10.2)
[2017-10-04 00:02] LABS: CHLORIDE 109 mEq/L (99-109); POTASSIUM 3.6 mEq/L (3.7-5.4); SODIUM 143 mEq/L (136-147)
[2017-10-04 00:04] LABS: GLUCOSE 118 mg/dL (70-99)
[2017-10-04 00:05] LABS: ANION GAP 14 MEQ/L (2-14)
[2017-10-04 00:06] LABS: TOTAL BILIRUBIN 0.3 mg/dL (0.0-1.0)
[2017-10-04 00:07] LABS: SERUM ETHYL ALCOHOL 301 mg/dL
[2017-10-04 00:08] LABS: ALKALINE PHOSPHATASE 60 IU/L (3-129); GFR ESTIMATE (CALCULATED) > 59 mL/min/
[2017-10-04 00:09] LABS: UREA NITROGEN (BUN) 22 mg/dL (9-23)
[2017-10-04 00:11] LABS: LIPASE 25 U/L (1.0-51.0)
[2017-10-04 09:52] LABS: ADD MIUA? NO; BILIRUBIN NEGATIVE; BLOOD NEGATIVE; COLOR YELLOW ((YELLOW)); GLUCOSE (STRIP) 50; KETONES 5; LEUKOCYTES NEGATIVE; NITRITE NEGATIVE; PROTEIN (STRIP) NEGATIVE; SPECIFIC GRAVITY 1.013 (1.000-1.030); UCUL ADDED? NO; UROBILINOGEN 0.2 MG/DL (0.2-1.0)
[2017-10-04] MEDS ORDERED: NICODERM CQ1 EAC2 TD (10:36)
[2017-10-04] MEDS ORDERED: BUPROPION HCL150 M2 PO (10:40)
[2017-10-04] MEDS ORDERED: MUCINEX600 MG PO (10:43)
[2017-10-04] MEDS ORDERED: TIMOLOL MALEATE5 ML RIGHT EYE (10:43)
[2017-10-04] MEDS ORDERED: FOLIC ACID1 MG PO (10:44)
[2017-10-04] MEDS ORDERED: VITAMIN B-1100 MG PO (10:45)
[2017-10-04] MEDS ORDERED: THERAGRAN1 TABLET PO (10:46)
[2017-10-04 18:50] VITALS: BP 155/90
[2017-10-05 00:16] VITALS: BP 136/73
[2017-10-05 05:00] VITALS: BP 171/103
[2017-10-05 08:54] VITALS: BP 151/79
[2017-10-05 11:12] LABS: HEMATOCRIT 30.8 % (38.0-50.0); MCH 29.2 PG (29.0-34.0); MCHC 30.8 G/DL (30.0-36.0); MCV 94.8 FL (86-99); MEAN PLAT.VOLUME 9.2 uM^3 (9.0-12.4); PLATELET COUNT 242 K/uL (156-360); RBC DIS.WIDTH-CV 17.5 % (11.8-14.6); RBC DIS.WIDTH-SD 61.6 % (39-53); RED BLOOD COUNT 3.25 M/uL (4.00-5.50); WHITE BLOOD COUNT 6.5 K/uL (4.1-10.2)
[2017-10-05 11:39] LABS: ANION GAP 8 MEQ/L (2-14); CHLORIDE 109 MEQ/L (99-109); GFR ESTIMATE (CALCULATED) > 59 mL/min/; GLUCOSE 153 mg/dL (70-99); POTASSIUM 3.9 MEQ/L (3.7-5.4); SAMPLE HEMOLYSIS CHECK 0; SAMPLE ICTERIC CHECK 0; SAMPLE LIPEMIA CHECK 0; SODIUM 143 MEQ/L (136-147); UREA NITROGEN (BUN) 14 mg/dL (9-23)
[2017-10-05 15:40] VITALS: BP 133/87
[2017-10-05 20:34] VITALS: BP 150/86
[2017-10-06 00:11] VITALS: BP 112/64
[2017-10-06 05:29] VITALS: BP 128/75
[2017-10-06 07:55] VITALS: BP 122/71
[2017-10-06 13:18] VITALS: BP 107/57
[2017-10-06 15:50] VITALS: BP 139/76
[2017-10-06 20:03] VITALS: BP 135/77
[2017-10-07 00:09] VITALS: BP 138/79
[2017-10-07 06:12] LABS: HEMATOCRIT 26.1 % (38.0-50.0); MCH 28.9 PG (29.0-34.0); MCHC 30.3 G/DL (30.0-36.0); MCV 95.6 FL (86-99); MEAN PLAT.VOLUME 8.8 uM^3 (9.0-12.4); PLATELET COUNT 244 K/uL (156-360); RBC DIS.WIDTH-SD 62.8 % (39-53); RED BLOOD COUNT 2.73 M/uL (4.00-5.50); WHITE BLOOD COUNT 3.4 K/uL (4.1-10.2)
[2017-10-07 06:48] LABS: ANION GAP 8 MEQ/L (2-14); CHLORIDE 113 MEQ/L (99-109); GFR ESTIMATE (CALCULATED) > 59 mL/min/; POTASSIUM 3.4 MEQ/L (3.7-5.4); SAMPLE HEMOLYSIS CHECK 0; SAMPLE ICTERIC CHECK 0; SAMPLE LIPEMIA CHECK 0; SODIUM 146 MEQ/L (136-147); UREA NITROGEN (BUN) 11 mg/dL (9-23)
[2017-10-07 06:49] LABS: GLUCOSE 87 mg/dL (70-99)
[2017-10-07 16:36] VITALS: BP 138/95
[2017-10-08 00:34] VITALS: BP 146/86
[2017-10-08 06:30] LABS: HEMATOCRIT 29.4 % (38.0-50.0); MCH 28.2 PG (29.0-34.0); MCHC 29.6 G/DL (30.0-36.0); MCV 95.1 FL (86-99); MEAN PLAT.VOLUME 9.1 uM^3 (9.0-12.4); PLATELET COUNT 240 K/uL (156-360); RBC DIS.WIDTH-CV 17.8 % (11.8-14.6); RBC DIS.WIDTH-SD 61.4 % (39-53); RED BLOOD COUNT 3.09 M/uL (4.00-5.50); WHITE BLOOD COUNT 3.9 K/uL (4.1-10.2)
[2017-10-08 07:15] VITALS: BP 137/85
[2017-10-08 07:20] LABS: ANION GAP 7 MEQ/L (2-14); CHLORIDE 109 MEQ/L (99-109); GFR ESTIMATE (CALCULATED) > 59 mL/min/; POTASSIUM 3.8 MEQ/L (3.7-5.4); SAMPLE HEMOLYSIS CHECK 0; SAMPLE ICTERIC CHECK 0; SAMPLE LIPEMIA CHECK 0; SODIUM 142 MEQ/L (136-147); UREA NITROGEN (BUN) 12 mg/dL (9-23)
[2017-10-08 07:28] LABS: GLUCOSE 119 mg/dL (70-99)
[2017-10-08 15:00] VITALS: BP 174/90
[2017-10-08 23:49] VITALS: BP 149/84
[2017-10-09 07:10] VITALS: BP 141/87
[2017-10-09] MEDS ORDERED: BUPROPION HCL150 M2 PO (13:06)
[2017-10-09] MEDS ORDERED: LEVETIRACETAM750 MG PO (13:06)
[2017-10-09] MEDS ORDERED: PANTOPRAZOLE SO40 MG PO ×2 (13:34→13:35)
== END 2017-10-09 16:05 | disposition home or self-care (01) | DRG 896 ==
LOC: EME 22:48 → 5EAST 10-04 05:50 → EDOF 10-04 05:50 → ENRESERV 10-04 05:53 → 5EAST 10-04 17:51
PROVIDERS: Emergency Medicine; Internal Medicine
PROC: 02HV33Z Insertion of Infusion Device into Superior Vena Cava, Percutaneous Approach (ICD-10-PCS; principal; 2017-10-04)
DX: F10.231 Alcohol dependence with withdrawal delirium (principal); J18.9 Pneumonia, unspecified organism; K86.0 Alcohol-induced chronic pancreatitis; G40.909 Epilepsy, unspecified, not intractable, without status epilepticus; Y90.8 Blood alcohol level of 240 mg/100 ml or more; F10.221 Alcohol dependence with intoxication delirium; E86.0 Dehydration; I95.9 Hypotension, unspecified; F17.200 Nicotine dependence, unspecified, uncomplicated; F31.9 Bipolar disorder, unspecified; I10 Essential (primary) hypertension; I25.10 Atherosclerotic heart disease of native coronary artery without angina pectoris; Z86.711 Personal history of pulmonary embolism; K21.9 Gastro-esophageal reflux disease without esophagitis; D64.9 Anemia, unspecified; G89.29 Other chronic pain; Z86.718 Personal history of other venous thrombosis and embolism; Z86.73 Personal history of transient ischemic attack (TIA), and cerebral infarction without residual deficits; G62.9 Polyneuropathy, unspecified
CPT/HCPCS: 71010; 71250; 80048; 80053; 81003; 82140; 82272; 83605; 83690; 85027; 86850; 86900; 86901; 87040; 93005; 94640; 94640 76; 99202; 99281; 99285; C1751; C1753; C9113; G0480; J0360; J0456; J0696; J1170; J1644; J2060; J2405; J3010; J7030; S0028

== ENCOUNTER 2017-10-10 13:56 | Emergency (ER) | payer OTHER ==
[~2017-10-10] VITALS: Ht 170.2 cm; Wt 80.0 kg
[~2017-10-10 13:56] MED LIST changes: +LEVETIRACETAM750 MG PO; +TIMOLOL MALEATE5 ML RIGHT EYE; +VITAMIN B-1100 MG PO
[2017-10-10 15:40] LABS: EOSINOPHIL (%) 1.1 % (0-5); EOSINOPHIL COUNT 0.1 K/uL (0-0.3); HEMATOCRIT 37.1 % (38.0-50.0); IMMATURE GRANULOCYTE (%) 0.8 % (0.0-0.7); IMMATURE GRANULOCYTE COUNT 0.1 K/uL; INSTRUMENT ABS NEUTROPHIL CT 3.9 K/uL; MCHC 31.5 G/DL (30.0-36.0); MCV 92.1 FL (86-99); MEAN PLAT.VOLUME 8.3 uM^3 (9.0-12.4); MONOCYTE (%) 8.1 % (3-12); MONOCYTE COUNT 0.5 K/uL (0-0.8); NEUTROPHIL (%) 58.6 % (45-76); NEUTROPHIL COUNT 3.9 K/uL (1.8-6.4); RBC DIS.WIDTH-CV 18.1 % (11.8-14.6); WHITE BLOOD COUNT 6.6 K/uL (4.1-10.2)
[2017-10-10 15:41] LABS: PLATELET COUNT 406 K/uL (156-360); RED BLOOD COUNT 4.03 M/uL (4.00-5.50)
[2017-10-10 15:42] LABS: CHLORIDE 107 mEq/L (99-109); POTASSIUM 3.7 mEq/L (3.7-5.4)
[2017-10-10 15:45] LABS: ANION GAP 16 MEQ/L (2-14)
[2017-10-10 15:47] LABS: SERUM ETHYL ALCOHOL 285 mg/dL
[2017-10-10 15:48] LABS: GFR ESTIMATE (CALCULATED) > 59 mL/min/ (58.99-99999)
[2017-10-10 15:49] LABS: UREA NITROGEN (BUN) 7 mg/dL (9-23)
[2017-10-10 15:53] LABS: GLUCOSE 72 mg/dL (70-99); SODIUM 150 mEq/L (136-147)
[2017-10-10 16:02] LABS: AMPHETAMINE NEGATIVE (500 ng/mL); BARBITURATES NEGATIVE (200 ng/mL); BENZODIAZEPINES PRESUMPTIVE POSITIVE (150 ng/mL); COCAINE NEGATIVE (150 ng/mL); INTERNAL CONTROLS VALID? YES; METHADONE NEGATIVE (200 ng/mL); METHAMPHETAMINE NEGATIVE (500 ng/mL); OPIATES (MORPHINE) NEGATIVE (100 ng/mL); OXYCODONE NEGATIVE (100 ng/mL); PHENCYCLIDINE NEGATIVE (25 ng/mL); PROPOXYPHENE NEGATIVE (300 ng/mL); THC CANNABINOIDS NEGATIVE (50 ng/mL); TRICYCLIC ANTIDEPRESSANTS PRESUMPTIVE POSITIVE (300 ng/mL)
[2017-10-10 16:03] LABS: ADD MEDTOX COMMENT Y; ADD MIUA? NO; BILIRUBIN NEGATIVE; BLOOD NEGATIVE; COLOR YELLOW ((YELLOW)); GLUCOSE (STRIP) NEGATIVE; KETONES NEGATIVE; LEUKOCYTES NEGATIVE; NITRITE NEGATIVE; PROTEIN (STRIP) NEGATIVE; SPECIFIC GRAVITY 1.005 (1.000-1.030); UROBILINOGEN 0.2 MG/DL (0.2-1.0)
[2017-10-10 16:32] LABS: BENZODIAZEPINES, URINE SCREEN POSITIVE (200 ng/mL)
[2017-10-10 21:45] VITALS: BP 157/81
== END 2017-10-10 21:46 | disposition home or self-care (01) ==
LOC: EME 13:56
PROVIDERS: Emergency Medicine
DX: F10.129 Alcohol abuse with intoxication, unspecified (principal); E86.0 Dehydration; R41.82 Altered mental status, unspecified; Y90.8 Blood alcohol level of 240 mg/100 ml or more; I11.0 Hypertensive heart disease with heart failure; I50.9 Heart failure, unspecified; F32.9 Major depressive disorder, single episode, unspecified; F03.90 Unspecified dementia, unspecified severity, without behavioral disturbance, psychotic disturbance, mood disturbance, and anxiety; F41.9 Anxiety disorder, unspecified; J44.9 Chronic obstructive pulmonary disease, unspecified; K21.9 Gastro-esophageal reflux disease without esophagitis; R56.9 Unspecified convulsions; F17.200 Nicotine dependence, unspecified, uncomplicated; Z88.5 Allergy status to narcotic agent; Z86.73 Personal history of transient ischemic attack (TIA), and cerebral infarction without residual deficits; Z86.711 Personal history of pulmonary embolism
CPT/HCPCS: 70450; 71010; 80048; 81003; 84999; 85025; 99281; 99285; G0480

== ENCOUNTER 2017-10-14 13:05 | Emergency (ER) | payer OTHER ==
[~2017-10-14] VITALS: Ht 182.9 cm; Wt 80.8 kg
[2017-10-14 14:55] LABS: BASOPHIL COUNT 0.1 K/uL (0-0.1); EOSINOPHIL (%) 0.3 % (0-5); HEMATOCRIT 42.9 % (38.0-50.0); IMMATURE GRANULOCYTE (%) 0.3 % (0.0-0.7); INSTRUMENT ABS NEUTROPHIL CT 6.8 K/uL; LYMPHOCYTE COUNT 1.7 K/uL (1.0-2.8); MCH 28.4 PG (29.0-34.0); MCHC 30.8 G/DL (30.0-36.0); MCV 92.3 FL (86-99); MONOCYTE (%) 12.7 % (3-12); MONOCYTE COUNT 1.3 K/uL (0-0.8); NEUTROPHIL (%) 68.6 % (45-76); NEUTROPHIL COUNT 6.8 K/uL (1.8-6.4); RBC DIS.WIDTH-CV 18.2 % (11.8-14.6); RBC DIS.WIDTH-SD 62.1 % (39-53); RED BLOOD COUNT 4.65 M/uL (4.00-5.50); WHITE BLOOD COUNT 9.8 K/uL (4.1-10.2)
[2017-10-14 15:50] LABS: CHLORIDE 105 mEq/L (99-109); POTASSIUM 3.8 mEq/L (3.7-5.4); SODIUM 146 mEq/L (136-147)
[2017-10-14 15:52] LABS: GLUCOSE 83 mg/dL (70-99)
[2017-10-14 15:53] LABS: ANION GAP 22 MEQ/L (2-14)
[2017-10-14 15:55] LABS: GFR ESTIMATE (CALCULATED) > 59 mL/min/ (58.99-99999); SERUM ETHYL ALCOHOL 346 mg/dL
[2017-10-14 15:58] LABS: UREA NITROGEN (BUN) 21 mg/dL (9-23)
[2017-10-14 19:22] LABS: MEAN PLAT.VOLUME 8.8 uM^3 (9.0-12.4); PLAT.SUFFICIENCY ADEQUATE; PLATELET COUNT 353 K/uL (156-360)
[2017-10-14 20:05] LABS: ADD MEDTOX COMMENT Y; AMPHETAMINE NEGATIVE (500 ng/mL); BARBITURATES NEGATIVE (200 ng/mL); BENZODIAZEPINES PRESUMPTIVE POSITIVE (150 ng/mL); COCAINE NEGATIVE (150 ng/mL); INTERNAL CONTROLS VALID? YES; METHADONE NEGATIVE (200 ng/mL); METHAMPHETAMINE NEGATIVE (500 ng/mL); OPIATES (MORPHINE) NEGATIVE (100 ng/mL); OXYCODONE NEGATIVE (100 ng/mL); PHENCYCLIDINE NEGATIVE (25 ng/mL); PROPOXYPHENE NEGATIVE (300 ng/mL); THC CANNABINOIDS NEGATIVE (50 ng/mL); TRICYCLIC ANTIDEPRESSANTS PRESUMPTIVE POSITIVE (300 ng/mL)
[2017-10-14 21:20] LABS: BENZODIAZEPINES, URINE SCREEN POSITIVE (200 ng/mL)
[2017-10-14 22:14] VITALS: BP 157/102
== END 2017-10-14 22:16 | disposition home or self-care (01) ==
LOC: EME 13:05
PROVIDERS: Emergency Medicine
DX: F10.129 Alcohol abuse with intoxication, unspecified (principal); F13.10 Sedative, hypnotic or anxiolytic abuse, uncomplicated; Y90.8 Blood alcohol level of 240 mg/100 ml or more; R41.82 Altered mental status, unspecified; I11.0 Hypertensive heart disease with heart failure; I50.9 Heart failure, unspecified; J44.9 Chronic obstructive pulmonary disease, unspecified; K21.9 Gastro-esophageal reflux disease without esophagitis; F32.9 Major depressive disorder, single episode, unspecified; R56.9 Unspecified convulsions; F41.9 Anxiety disorder, unspecified; Z86.73 Personal history of transient ischemic attack (TIA), and cerebral infarction without residual deficits; Z86.711 Personal history of pulmonary embolism; Z88.5 Allergy status to narcotic agent; F17.200 Nicotine dependence, unspecified, uncomplicated; F03.90 Unspecified dementia, unspecified severity, without behavioral disturbance, psychotic disturbance, mood disturbance, and anxiety
CPT/HCPCS: 70450; 71010; 80048; 84999; 85025; 99281; 99284; G0480

== ENCOUNTER 2017-10-22 09:27 | Inpatient (IN) | payer OTHER ==
[~2017-10-22] VITALS: Ht 165.1 cm; Wt 75.6 kg
[2017-10-22 11:07] LABS: EOSINOPHIL (%) 0 % (0-5); HEMATOCRIT 36.7 % (38.0-50.0); IMMATURE GRANULOCYTE (%) 0.3 % (0.0-0.7); INSTRUMENT ABS NEUTROPHIL CT 7.8 K/uL; LYMPHOCYTE COUNT 1.4 K/uL (1.0-2.8); MCH 28.1 PG (29.0-34.0); MCHC 32.2 G/DL (30.0-36.0); MCV 87.4 FL (86-99); MEAN PLAT.VOLUME 8.7 uM^3 (9.0-12.4); MONOCYTE (%) 10.4 % (3-12); MONOCYTE COUNT 1.1 K/uL (0-0.8); NEUTROPHIL (%) 75.8 % (45-76); NEUTROPHIL COUNT 7.8 K/uL (1.8-6.4); PLATELET COUNT 252 K/uL (156-360); RBC DIS.WIDTH-CV 19.7 % (11.8-14.6); RBC DIS.WIDTH-SD 61.8 % (39-53); WHITE BLOOD COUNT 10.3 K/uL (4.1-10.2)
[2017-10-22 11:08] LABS: CHLORIDE 96 mEq/L (99-109); POTASSIUM 4.3 mEq/L (3.7-5.4); SODIUM 138 mEq/L (136-147)
[2017-10-22 11:09] LABS: GLUCOSE 87 mg/dL (70-99)
[2017-10-22 11:11] LABS: ANION GAP 26 MEQ/L (2-14)
[2017-10-22 11:13] LABS: GFR ESTIMATE (CALCULATED) > 59 mL/min/ (58.99-99999); SERUM ETHYL ALCOHOL 60 mg/dL
[2017-10-22 11:14] LABS: UREA NITROGEN (BUN) 33 mg/dL (9-23)
[2017-10-22 13:13] LABS: MAGNESIUM 1.6 mg/dL (1.3-2.7)
[2017-10-22 16:16] VITALS: BP 180/90
[2017-10-22 19:39] VITALS: BP 121/74
[2017-10-23 00:30] VITALS: BP 118/71
[2017-10-23 03:34] VITALS: BP 94/56
[2017-10-23 06:55] LABS: ANION GAP 11 MEQ/L (2-14); CHLORIDE 100 MEQ/L (99-109); GFR ESTIMATE (CALCULATED) > 59 mL/min/ (58.99-99999); GLUCOSE 96 mg/dL (70-99); SAMPLE HEMOLYSIS CHECK 0; SAMPLE ICTERIC CHECK 0; SAMPLE LIPEMIA CHECK 0; SODIUM 141 MEQ/L (136-147); UREA NITROGEN (BUN) 31 mg/dL (9-23)
[2017-10-23 06:57] LABS: POTASSIUM 3.4 MEQ/L (3.7-5.4)
[2017-10-23 07:47] VITALS: BP 126/87
[2017-10-23 11:48] VITALS: BP 122/86
[2017-10-23 16:08] VITALS: BP 91/64
[2017-10-23 20:25] VITALS: BP 134/76
[2017-10-23 22:00] LABS: TROP-I INTERPRETATION NEGATIVE; TROPONIN-I 0.02 ng/mL (0.0-0.30)
[2017-10-23 22:01] LABS: ALKALINE PHOSPHATASE 62 IU/L (3-129); ANION GAP 8 MEQ/L (2-14); CHLORIDE 105 MEQ/L (99-109); DIRECT BILIRUBIN 0.2 mg/dL (0.0-0.3); GFR ESTIMATE (CALCULATED) > 59 mL/min/ (58.99-99999); GLUCOSE 105 mg/dL (70-99); MAGNESIUM 1.7 mg/dl (1.3-2.7); POTASSIUM 3.9 MEQ/L (3.7-5.4); SAMPLE HEMOLYSIS CHECK 0; SAMPLE ICTERIC CHECK 0; SAMPLE LIPEMIA CHECK 0; SODIUM 140 MEQ/L (136-147); TOTAL BILIRUBIN 0.6 MG/DL (0.0-1.0); UREA NITROGEN (BUN) 36 mg/dL (9-23)
[2017-10-24 00:07] VITALS: BP 92/57
[2017-10-24 04:04] VITALS: BP 85/58
[2017-10-24 07:49] VITALS: BP 100/66
[2017-10-24 09:30] LABS: INTER. NORMALIZED RATIO 0.8; PROTHROMBIN TIME 9.7 SEC (10.2-12.9)
[2017-10-24 09:39] LABS: HEMATOCRIT 30.6 % (38.0-50.0); MCH 28.6 PG (29.0-34.0); MEAN PLAT.VOLUME 9.9 uM^3 (9.0-12.4); PLATELET COUNT 196 K/uL (156-360); RBC DIS.WIDTH-CV 20.1 % (11.8-14.6); RBC DIS.WIDTH-SD 67.4 % (39-53); WHITE BLOOD COUNT 4.3 K/uL (4.1-10.2)
[2017-10-24 09:40] LABS: MCV 92.2 FL (86-99); RED BLOOD COUNT 3.32 M/uL (4.00-5.50)
[2017-10-24 15:25] VITALS: BP 121/78
[2017-10-24 19:35] VITALS: BP 144/76
[2017-10-24 23:42] VITALS: BP 131/81
[2017-10-25 04:30] VITALS: BP 148/87
[2017-10-25 05:59] LABS: HEMATOCRIT 28.5 % (38.0-50.0); MCH 28.8 PG (29.0-34.0); MCHC 31.6 G/DL (30.0-36.0); MCV 91.1 FL (86-99); MEAN PLAT.VOLUME 9.7 uM^3 (9.0-12.4); PLATELET COUNT 187 K/uL (156-360); RBC DIS.WIDTH-CV 20.2 % (11.8-14.6); RBC DIS.WIDTH-SD 66.5 % (39-53); RED BLOOD COUNT 3.13 M/uL (4.00-5.50); WHITE BLOOD COUNT 4.1 K/uL (4.1-10.2)
[2017-10-25 06:31] LABS: ANION GAP 9 MEQ/L (2-14); CHLORIDE 107 MEQ/L (99-109); GFR ESTIMATE (CALCULATED) > 59 mL/min/ (58.99-99999); GLUCOSE 91 mg/dL (70-99); POTASSIUM 3.7 MEQ/L (3.7-5.4); SAMPLE HEMOLYSIS CHECK 0; SAMPLE ICTERIC CHECK 0; SAMPLE LIPEMIA CHECK 0; SODIUM 144 MEQ/L (136-147); UREA NITROGEN (BUN) 31 mg/dL (9-23)
[2017-10-25 07:54] VITALS: BP 150/82
[2017-10-25 15:45] LABS: TROP-I INTERPRETATION NEGATIVE; TROPONIN-I < 0.01 ng/mL (0.0-0.30)
[2017-10-25 16:00] VITALS: BP 181/92
[2017-10-26 00:27] VITALS: BP 148/98
[2017-10-26 07:23] VITALS: BP 144/88
[2017-10-26 13:21] LABS: HEMATOCRIT 36.6 % (38.0-50.0); MCH 28.1 PG (29.0-34.0); MCHC 31.1 G/DL (30.0-36.0); MCV 90.1 FL (86-99); PLATELET COUNT 222 K/uL (156-360); RBC DIS.WIDTH-CV 20.3 % (11.8-14.6); RBC DIS.WIDTH-SD 66.6 % (39-53); RED BLOOD COUNT 4.06 M/uL (4.00-5.50); WHITE BLOOD COUNT 6.9 K/uL (4.1-10.2)
[2017-10-26 15:08] VITALS: BP 143/95
[2017-10-27] VITALS: BP 123/89
[2017-10-27 07:20] VITALS: BP 120/72
[2017-10-27 16:14] VITALS: BP 123/76
[2017-10-27 23:28] VITALS: BP 122/75
[2017-10-28 07:03] VITALS: BP 121/73
[2017-10-28] MEDS ORDERED: XARELTO20 MG PO (11:03)
[2017-10-28 15:03] VITALS: BP 115/73
[2017-10-29] VITALS: BP 128/87
[2017-10-29 07:33] VITALS: BP 112/54
[2017-10-29 07:36] VITALS: BP 131/75
[2017-10-29] MEDS ORDERED: XARELTO15 MG PO (07:45)
[2017-10-29] MEDS ORDERED: LISINOPRIL20 MG PO (10:53)
[2017-10-29] MEDS ORDERED: TOPROL XL100 MG PO (10:53)
[2017-10-29] MEDS ORDERED: APRESOLINE50 MG PO (10:53)
[2017-10-29] MEDS ORDERED: LEVETIRACETAM750 MG PO (10:54)
[2017-10-29] MEDS ORDERED: BUSPIRONE HCL30 MG PO (13:57)
[2017-10-29] MEDS ORDERED: FOLIC ACID1 MG PO (13:57)
[2017-10-29] MEDS ORDERED: VITAMIN B-1100 MG PO (13:57)
[2017-10-29] MEDS ORDERED: PANTOPRAZOLE SO40 MG PO (13:57)
[2017-10-29] MEDS ORDERED: TIMOLOL MALEATE5 ML RIGHT EYE (13:57)
[2017-10-29] MEDS ORDERED: DOXEPIN HCL25 MG PO (13:57)
[2017-10-29] MEDS ORDERED: DOXEPIN HCL100 MG PO (13:57)
[2017-10-29] MEDS ORDERED: MUCINEX600 MG PO (13:57)
[2017-10-29] MEDS ORDERED: COMBIVENT RESPIM4 GM IH (13:57)
[2017-10-29] MEDS ORDERED: THERAGRAN1 TABLET PO (13:57)
[2017-10-29] MEDS ORDERED: BUPROPION HCL150 M2 PO (13:57)
[2017-10-29 15:14] VITALS: BP 153/99
== END 2017-10-29 16:06 | disposition home health service (06) | DRG 897 ==
LOC: EME 09:27 → EDOF 12:20 → 5SOUTH 12:20 → ENRESERV 12:25 → 5SOUTH 14:42
PROVIDERS: Emergency Medicine; Hospitalist; Internal Medicine; Nurse Practitioner Adult Health
DX: F10.239 Alcohol dependence with withdrawal, unspecified (principal); E87.2 Acidosis; Z91.19 Patient's noncompliance with other medical treatment and regimen; Z86.711 Personal history of pulmonary embolism; Z91.14 Patient's other noncompliance with medication regimen; Z86.718 Personal history of other venous thrombosis and embolism; G40.909 Epilepsy, unspecified, not intractable, without status epilepticus; F31.9 Bipolar disorder, unspecified; J44.9 Chronic obstructive pulmonary disease, unspecified; F17.200 Nicotine dependence, unspecified, uncomplicated; E87.6 Hypokalemia; F03.90 Unspecified dementia, unspecified severity, without behavioral disturbance, psychotic disturbance, mood disturbance, and anxiety; I11.0 Hypertensive heart disease with heart failure; I50.9 Heart failure, unspecified; Z86.73 Personal history of transient ischemic attack (TIA), and cerebral infarction without residual deficits; I25.10 Atherosclerotic heart disease of native coronary artery without angina pectoris; K21.9 Gastro-esophageal reflux disease without esophagitis; Z59.0 Homelessness; K86.1 Other chronic pancreatitis; D64.9 Anemia, unspecified
CPT/HCPCS: 71010; 80048; 80053; 81003; 82248; 83735; 84100; 84484; 85025; 85027; 85379; 85610; 93005; 94640; 94640 76; 94760; 94799; 99202; 99281; 99285; C9113; G0480; J1200; J1650; J1885; J2060; J2405; J3010; J3411; J3475; J7030

== ENCOUNTER 2017-11-10 19:41 | Emergency (ER) | payer OTHER ==
[~2017-11-10 19:41] MED LIST changes: +XARELTO15 MG PO; +XARELTO20 MG PO
[2017-11-10 19:56] LABS: HEMATOCRIT 33.9 % (38.0-50.0); HEMOGLOBIN 10.8 G/DL (12.5-16.6); MCHC 31.9 G/DL (30.0-36.0); MCV 90.9 FL (86-99); RED BLOOD COUNT 3.73 M/uL (4.00-5.50); WHITE BLOOD COUNT 6.9 K/uL (4.1-10.2)
[2017-11-10 19:58] LABS: BASOPHIL COUNT 0.1 K/uL (0-0.1); EOSINOPHIL (%) 2.3 % (0-5); EOSINOPHIL COUNT 0.2 K/uL (0-0.3); IMMATURE GRANULOCYTE (%) 0.4 % (0.0-0.7); LYMPHOCYTE (%) 27.6 % (15-42); LYMPHOCYTE COUNT 1.9 K/uL (1.0-2.8); MONOCYTE (%) 6.1 % (3-12); MONOCYTE COUNT 0.4 K/uL (0-0.8); NEUTROPHIL (%) 62.6 % (45-76); NEUTROPHIL COUNT 4.3 K/uL (1.8-6.4); PLATELET COUNT 303 K/uL (156-360)
[2017-11-10 20:06] LABS: AMYLASE 215 IU/L (1-118); CHLORIDE 108 mEq/L (99-109); POTASSIUM 3.3 mEq/L (3.7-5.4); SODIUM 144 mEq/L (136-147)
[2017-11-10 20:08] LABS: GLUCOSE 89 mg/dL (70-99)
[2017-11-10 20:11] LABS: SERUM ETHYL ALCOHOL > 495 mg/dL
[2017-11-10 20:12] LABS: CREATININE 0.9 mg/dL (0.6-1.3); GFR ESTIMATE (CALCULATED) > 59 mL/min/ (58.99-99999); UREA NITROGEN (BUN) 28 mg/dL (9-23)
[2017-11-10 20:15] LABS: LIPASE 246 U/L (1.0-51.0)
[2017-11-11 00:56] LABS: APPEARANCE CLEAR ((CLEAR)); BILIRUBIN NEGATIVE; BLOOD SMALL; COLOR YELLOW ((YELLOW)); GLUCOSE (STRIP) NEGATIVE; KETONES NEGATIVE; LEUKOCYTES NEGATIVE; NITRITE NEGATIVE; PROTEIN (STRIP) NEGATIVE; SPECIFIC GRAVITY 1.008 (1.000-1.030); UROBILINOGEN 0.2 MG/DL (0.2-1.0)
[2017-11-11 00:58] LABS: AMPHETAMINE NEGATIVE (500 ng/mL); BARBITURATES NEGATIVE (200 ng/mL); BENZODIAZEPINES PRESUMPTIVE POSITIVE (150 ng/mL); BUPRENORPHINE NEGATIVE (10 ng/mL); COCAINE NEGATIVE (150 ng/mL); METHADONE NEGATIVE (200 ng/mL); METHAMPHETAMINE NEGATIVE (500 ng/mL); OPIATES (MORPHINE) NEGATIVE (100 ng/mL); OXYCODONE NEGATIVE (100 ng/mL); PHENCYCLIDINE NEGATIVE (25 ng/mL); PROPOXYPHENE NEGATIVE (300 ng/mL); THC CANNABINOIDS NEGATIVE (50 ng/mL); TRICYCLIC ANTIDEPRESSANTS PRESUMPTIVE POSITIVE (300 ng/mL)
[2017-11-11 01:00] LABS: BACTERIA NONE SEEN /HPF; EPITHELIAL CELLS RARE /HPF; MUCUS TRACE /LPF; RED BLOOD CELLS 0-5 /HPF (0-5); UCUL ADDED? NO; WHITE BLOOD CELLS 0-5 /HPF (0-5)
[2017-11-11 02:35] LABS: BENZODIAZEPINES, URINE SCREEN POSITIVE (200 ng/mL)
== END 2017-11-11 07:20 | disposition home or self-care (01) ==
LOC: TRA 19:41
PROVIDERS: Emergency Medicine
DX: F10.229 Alcohol dependence with intoxication, unspecified (principal); S60.512A Abrasion of left hand, initial encounter; S60.511A Abrasion of right hand, initial encounter; S30.811A Abrasion of abdominal wall, initial encounter; T14.8XXA Other injury of unspecified body region, initial encounter; K85.90 Acute pancreatitis without necrosis or infection, unspecified; K86.1 Other chronic pancreatitis; J44.9 Chronic obstructive pulmonary disease, unspecified; I10 Essential (primary) hypertension; K21.9 Gastro-esophageal reflux disease without esophagitis; F03.90 Unspecified dementia, unspecified severity, without behavioral disturbance, psychotic disturbance, mood disturbance, and anxiety; F41.9 Anxiety disorder, unspecified; F32.9 Major depressive disorder, single episode, unspecified; F17.200 Nicotine dependence, unspecified, uncomplicated; Y90.8 Blood alcohol level of 240 mg/100 ml or more; Z86.711 Personal history of pulmonary embolism; Z86.73 Personal history of transient ischemic attack (TIA), and cerebral infarction without residual deficits; Z88.5 Allergy status to narcotic agent
CPT/HCPCS: 70450; 71250; 72125; 72128; 72131; 74176; 80048; 81003; 82150; 82948; 83690; 84999; 85025; 86850; 86900; 86901; 93005; 99281; 99285; G0480; J1630; J2060

== ENCOUNTER 2017-11-13 09:15 | Emergency (ER) | payer OTHER ==
[~2017-11-13] VITALS: Ht 165.1 cm; Wt 78.5 kg
[2017-11-13 10:22] LABS: BASOPHIL (%) 0.3 % (0-1); EOSINOPHIL (%) 1.8 % (0-5); EOSINOPHIL COUNT 0.1 K/uL (0-0.3); HEMATOCRIT 31.2 % (38.0-50.0); HEMOGLOBIN 9.9 G/DL (12.5-16.6); IMMATURE GRANULOCYTE (%) 0.3 % (0.0-0.7); LYMPHOCYTE (%) 20.1 % (15-42); LYMPHOCYTE COUNT 1.2 K/uL (1.0-2.8); MCH 28.5 PG (29.0-34.0); MCHC 31.7 G/DL (30.0-36.0); MCV 89.9 FL (86-99); MONOCYTE (%) 16.3 % (3-12); NEUTROPHIL (%) 61.2 % (45-76); NEUTROPHIL COUNT 3.8 K/uL (1.8-6.4); PLATELET COUNT 249 K/uL (156-360); RBC DIS.WIDTH-CV 21.5 % (11.8-14.6); RBC DIS.WIDTH-SD 71.8 % (39-53); RED BLOOD COUNT 3.47 M/uL (4.00-5.50); WHITE BLOOD COUNT 6.2 K/uL (4.1-10.2)
[2017-11-13 10:57] LABS: ALBUMIN 3.7 G/DL (3.2-4.8); ALKALINE PHOSPHATASE 97 IU/L (3-129); ALT (GPT) 46 IU/L (3-49); AST (GOT) 41 IU/L (2-34); CHLORIDE 105 MEQ/L (99-109); CREATININE 0.6 MG/DL (0.6-1.3); GFR ESTIMATE (CALCULATED) > 59 mL/min/ (58.99-99999); GLUCOSE 81 mg/dL (70-99); LIPASE 44 U/L (1.0-51.0); MAGNESIUM 1.6 mg/dl (1.3-2.7); POTASSIUM 3.2 MEQ/L (3.7-5.4); SERUM ETHYL ALCOHOL 12 mg/dL; SODIUM 142 MEQ/L (136-147); TOTAL BILIRUBIN 0.7 MG/DL (0.0-1.0); UREA NITROGEN (BUN) 21 mg/dL (9-23)
[2017-11-13 13:09] LABS: APPEARANCE CLEAR ((CLEAR)); BILIRUBIN NEGATIVE; BLOOD NEGATIVE; COLOR AMBER ((YELLOW)); GLUCOSE (STRIP) 50; KETONES 5; LEUKOCYTES NEGATIVE; NITRITE NEGATIVE; PROTEIN (STRIP) 30; SPECIFIC GRAVITY 1.026 (1.000-1.030)
[2017-11-13 13:18] LABS: AMPHETAMINE NEGATIVE (500 ng/mL); BARBITURATES NEGATIVE (200 ng/mL); BENZODIAZEPINES PRESUMPTIVE POSITIVE (150 ng/mL); BUPRENORPHINE NEGATIVE (10 ng/mL); COCAINE NEGATIVE (150 ng/mL); METHADONE NEGATIVE (200 ng/mL); METHAMPHETAMINE NEGATIVE (500 ng/mL); OPIATES (MORPHINE) NEGATIVE (100 ng/mL); OXYCODONE NEGATIVE (100 ng/mL); PHENCYCLIDINE NEGATIVE (25 ng/mL); PROPOXYPHENE NEGATIVE (300 ng/mL); THC CANNABINOIDS NEGATIVE (50 ng/mL); TRICYCLIC ANTIDEPRESSANTS PRESUMPTIVE POSITIVE (300 ng/mL)
[2017-11-13] MEDS ORDERED: THIAMINE HCL100 MG PO (13:47)
[2017-11-13] MEDS ORDERED: LIBRIUM25 MG PO (13:47)
[2017-11-13 13:58] LABS: BENZODIAZEPINES, URINE SCREEN POSITIVE (200 ng/mL)
[2017-11-13 14:16] VITALS: BP 144/92
== END 2017-11-13 14:47 | disposition home or self-care (01) ==
LOC: EME 09:15
PROVIDERS: Emergency Medicine
DX: F10.239 Alcohol dependence with withdrawal, unspecified (principal); F41.9 Anxiety disorder, unspecified; R25.1 Tremor, unspecified; R51 Headache; R06.00 Dyspnea, unspecified; R00.0 Tachycardia, unspecified; I10 Essential (primary) hypertension; J44.9 Chronic obstructive pulmonary disease, unspecified; Z86.73 Personal history of transient ischemic attack (TIA), and cerebral infarction without residual deficits; Z86.711 Personal history of pulmonary embolism; Z79.01 Long term (current) use of anticoagulants; F17.200 Nicotine dependence, unspecified, uncomplicated
CPT/HCPCS: 71045; 80053; 81003; 82140; 83690; 83735; 84999; 85025; 93005; 99281; 99285; G0480; J2060

== ENCOUNTER 2017-11-17 06:55 | Emergency (ER) | payer OTHER ==
[~2017-11-17] VITALS: Ht 167.6 cm; Wt 77.0 kg
[2017-11-17 07:33] LABS: BASOPHIL (%) 0.7 % (0-1); EOSINOPHIL (%) 2.3 % (0-5); EOSINOPHIL COUNT 0.1 K/uL (0-0.3); HEMATOCRIT 34.6 % (38.0-50.0); HEMOGLOBIN 10.7 G/DL (12.5-16.6); IMMATURE GRANULOCYTE (%) 0.3 % (0.0-0.7); LYMPHOCYTE (%) 23.3 % (15-42); LYMPHOCYTE COUNT 1.3 K/uL (1.0-2.8); MCH 28.2 PG (29.0-34.0); MCHC 30.9 G/DL (30.0-36.0); MCV 91.1 FL (86-99); MONOCYTE (%) 15.9 % (3-12); MONOCYTE COUNT 0.9 K/uL (0-0.8); NEUTROPHIL (%) 57.5 % (45-76); NEUTROPHIL COUNT 3.3 K/uL (1.8-6.4); PLATELET COUNT 290 K/uL (156-360); RBC DIS.WIDTH-CV 21.1 % (11.8-14.6); RBC DIS.WIDTH-SD 70.3 % (39-53); WHITE BLOOD COUNT 5.7 K/uL (4.1-10.2)
[2017-11-17 07:41] LABS: CHLORIDE 110 mEq/L (99-109); POTASSIUM 3.4 mEq/L (3.7-5.4); SODIUM 146 mEq/L (136-147)
[2017-11-17 07:43] LABS: GLUCOSE 78 mg/dL (70-99)
[2017-11-17 07:46] LABS: SERUM ETHYL ALCOHOL < 10 mg/dL
[2017-11-17 07:47] LABS: CREATININE 0.6 mg/dL (0.6-1.3); GFR ESTIMATE (CALCULATED) > 59 mL/min/ (58.99-99999)
[2017-11-17 07:48] LABS: UREA NITROGEN (BUN) 11 mg/dL (9-23)
[2017-11-17 07:50] LABS: LIPASE 31 U/L (1.0-51.0)
[2017-11-17 08:38] LABS: AMPHETAMINE NEGATIVE (500 ng/mL); BARBITURATES NEGATIVE (200 ng/mL); BENZODIAZEPINES PRESUMPTIVE POSITIVE (150 ng/mL); BUPRENORPHINE NEGATIVE (10 ng/mL); COCAINE NEGATIVE (150 ng/mL); METHADONE NEGATIVE (200 ng/mL); METHAMPHETAMINE NEGATIVE (500 ng/mL); OPIATES (MORPHINE) NEGATIVE (100 ng/mL); OXYCODONE NEGATIVE (100 ng/mL); PHENCYCLIDINE NEGATIVE (25 ng/mL); PROPOXYPHENE NEGATIVE (300 ng/mL); THC CANNABINOIDS NEGATIVE (50 ng/mL); TRICYCLIC ANTIDEPRESSANTS PRESUMPTIVE POSITIVE (300 ng/mL)
[2017-11-17 09:18] LABS: BENZODIAZEPINES, URINE SCREEN POSITIVE (200 ng/mL)
[2017-11-17] MEDS ORDERED: B-1100 MG PO (11:28)
[2017-11-17] MEDS ORDERED: LIBRIUM25 MG PO (11:28)
[2017-11-17 11:45] VITALS: BP 133/88
== END 2017-11-17 11:45 | disposition home or self-care (01) ==
LOC: EME 06:55
PROVIDERS: Emergency Medicine
DX: F10.239 Alcohol dependence with withdrawal, unspecified (principal); I50.9 Heart failure, unspecified; I11.0 Hypertensive heart disease with heart failure; Z86.73 Personal history of transient ischemic attack (TIA), and cerebral infarction without residual deficits; K21.9 Gastro-esophageal reflux disease without esophagitis; J44.9 Chronic obstructive pulmonary disease, unspecified; F41.9 Anxiety disorder, unspecified; F32.9 Major depressive disorder, single episode, unspecified; F03.90 Unspecified dementia, unspecified severity, without behavioral disturbance, psychotic disturbance, mood disturbance, and anxiety; Z88.5 Allergy status to narcotic agent; F17.200 Nicotine dependence, unspecified, uncomplicated; Z86.711 Personal history of pulmonary embolism
CPT/HCPCS: 80048; 83690; 84999; 85025; 99281; 99285; G0480

== ENCOUNTER 2017-11-22 15:22 | Emergency (ER) | payer OTHER ==
[~2017-11-22] VITALS: Ht 172.7 cm; Wt 72.7 kg
[2017-11-22 16:21] LABS: HEMATOCRIT 35.4 % (38.0-50.0); HEMOGLOBIN 11.3 G/DL (12.5-16.6); MCH 29.2 PG (29.0-34.0); MCHC 31.9 G/DL (30.0-36.0); MCV 91.5 FL (86-99); PLATELET COUNT 298 K/uL (156-360); RBC DIS.WIDTH-SD 70.4 % (39-53); RED BLOOD COUNT 3.87 M/uL (4.00-5.50); WHITE BLOOD COUNT 11.6 K/uL (4.1-10.2)
[2017-11-22 16:31] LABS: ALBUMIN 3.8 g/dL (3.2-4.8); CHLORIDE 106 mEq/L (99-109); POTASSIUM 3.2 mEq/L (3.7-5.4); SODIUM 145 mEq/L (136-147)
[2017-11-22 16:33] LABS: GLUCOSE 146 mg/dL (70-99); TOTAL PROTEIN 5.8 g/dL (6.4-8.3)
[2017-11-22 16:35] LABS: TOTAL BILIRUBIN 0.4 mg/dL (0.0-1.0)
[2017-11-22 16:36] LABS: SERUM ETHYL ALCOHOL 466 mg/dL
[2017-11-22 16:37] LABS: ALKALINE PHOSPHATASE 105 IU/L (3-129); GFR ESTIMATE (CALCULATED) > 59 mL/min/ (58.99-99999)
[2017-11-22 16:38] LABS: AST (GOT) 65 IU/L (2-34); UREA NITROGEN (BUN) 19 mg/dL (9-23)
[2017-11-22 16:40] LABS: ALT (GPT) 55 IU/L (3-49)
[2017-11-22 19:36] LABS: APPEARANCE CLEAR ((CLEAR)); BILIRUBIN NEGATIVE; BLOOD SMALL; COLOR YELLOW ((YELLOW)); GLUCOSE (STRIP) NEGATIVE; KETONES 5; LEUKOCYTES NEGATIVE; NITRITE NEGATIVE; PROTEIN (STRIP) NEGATIVE; SPECIFIC GRAVITY 1.008 (1.000-1.030); UROBILINOGEN 0.2 MG/DL (0.2-1.0)
[2017-11-22 19:39] LABS: AMPHETAMINE NEGATIVE (500 ng/mL); BARBITURATES NEGATIVE (200 ng/mL); BENZODIAZEPINES PRESUMPTIVE POSITIVE (150 ng/mL); BUPRENORPHINE NEGATIVE (10 ng/mL); COCAINE NEGATIVE (150 ng/mL); METHADONE NEGATIVE (200 ng/mL); METHAMPHETAMINE NEGATIVE (500 ng/mL); OPIATES (MORPHINE) NEGATIVE (100 ng/mL); OXYCODONE NEGATIVE (100 ng/mL); PHENCYCLIDINE NEGATIVE (25 ng/mL); PROPOXYPHENE NEGATIVE (300 ng/mL); THC CANNABINOIDS NEGATIVE (50 ng/mL); TRICYCLIC ANTIDEPRESSANTS NEGATIVE (300 ng/mL)
[2017-11-22 19:43] LABS: BACTERIA NONE SEEN /HPF; EPITHELIAL CELLS RARE /HPF; MUCUS TRACE /LPF; RED BLOOD CELLS 0-5 /HPF (0-5); WHITE BLOOD CELLS 0-5 /HPF (0-5)
[2017-11-22 20:04] LABS: BENZODIAZEPINES, URINE SCREEN POSITIVE (200 ng/mL)
[2017-11-22 22:20] VITALS: BP 121/79
== END 2017-11-22 22:23 | disposition home or self-care (01) ==
LOC: EME 15:22
PROVIDERS: Emergency Medicine
DX: F10.129 Alcohol abuse with intoxication, unspecified (principal); Y90.8 Blood alcohol level of 240 mg/100 ml or more; J44.9 Chronic obstructive pulmonary disease, unspecified; F03.90 Unspecified dementia, unspecified severity, without behavioral disturbance, psychotic disturbance, mood disturbance, and anxiety; G40.909 Epilepsy, unspecified, not intractable, without status epilepticus; I10 Essential (primary) hypertension; K21.9 Gastro-esophageal reflux disease without esophagitis; F31.9 Bipolar disorder, unspecified; F41.9 Anxiety disorder, unspecified; F32.9 Major depressive disorder, single episode, unspecified; F17.200 Nicotine dependence, unspecified, uncomplicated; Z86.711 Personal history of pulmonary embolism; Z86.73 Personal history of transient ischemic attack (TIA), and cerebral infarction without residual deficits; Z88.5 Allergy status to narcotic agent
CPT/HCPCS: 70450; 71045; 80053; 81003; 84999; 85027; 93005; 99281; 99285; G0480; J1630; J7030

== ENCOUNTER 2017-11-25 05:09 | Inpatient (IN) | payer OTHER ==
[~2017-11-25] VITALS: Ht 162.6 cm; Wt 79.4 kg
[2017-11-25 05:57] LABS: BASOPHIL COUNT 0.1 K/uL (0-0.1); EOSINOPHIL (%) 1.8 % (0-5); EOSINOPHIL COUNT 0.1 K/uL (0-0.3); HEMATOCRIT 33.1 % (38.0-50.0); HEMOGLOBIN 10.5 G/DL (12.5-16.6); IMMATURE GRANULOCYTE (%) 0.2 % (0.0-0.7); LYMPHOCYTE (%) 21.2 % (15-42); LYMPHOCYTE COUNT 1.1 K/uL (1.0-2.8); MCH 28.7 PG (29.0-34.0); MCHC 31.7 G/DL (30.0-36.0); MCV 90.4 FL (86-99); MONOCYTE (%) 14.6 % (3-12); MONOCYTE COUNT 0.7 K/uL (0-0.8); NEUTROPHIL (%) 61.2 % (45-76); NEUTROPHIL COUNT 3.1 K/uL (1.8-6.4); PLATELET COUNT 268 K/uL (156-360); RBC DIS.WIDTH-CV 20.6 % (11.8-14.6); RBC DIS.WIDTH-SD 68.7 % (39-53); RED BLOOD COUNT 3.66 M/uL (4.00-5.50)
[2017-11-25 06:16] LABS: ALBUMIN 3.8 g/dL (3.2-4.8); CHLORIDE 107 mEq/L (99-109); POTASSIUM 3.2 mEq/L (3.7-5.4); SODIUM 148 mEq/L (136-147)
[2017-11-25 06:18] LABS: GLUCOSE 112 mg/dL (70-99); TOTAL PROTEIN 5.9 g/dL (6.4-8.3)
[2017-11-25 06:19] LABS: AMPHETAMINE NEGATIVE (500 ng/mL); BARBITURATES NEGATIVE (200 ng/mL); BENZODIAZEPINES PRESUMPTIVE POSITIVE (150 ng/mL); BUPRENORPHINE NEGATIVE (10 ng/mL); COCAINE NEGATIVE (150 ng/mL); METHADONE NEGATIVE (200 ng/mL); METHAMPHETAMINE NEGATIVE (500 ng/mL); OPIATES (MORPHINE) NEGATIVE (100 ng/mL); OXYCODONE NEGATIVE (100 ng/mL); PHENCYCLIDINE NEGATIVE (25 ng/mL); PROPOXYPHENE NEGATIVE (300 ng/mL); THC CANNABINOIDS NEGATIVE (50 ng/mL); TRICYCLIC ANTIDEPRESSANTS NEGATIVE (300 ng/mL)
[2017-11-25 06:21] LABS: SERUM ETHYL ALCOHOL 60 mg/dL
[2017-11-25 06:22] LABS: ALKALINE PHOSPHATASE 101 IU/L (3-129); CREATININE 0.9 mg/dL (0.6-1.3); GFR ESTIMATE (CALCULATED) > 59 mL/min/ (58.99-99999)
[2017-11-25 06:23] LABS: AST (GOT) 87 IU/L (2-34); UREA NITROGEN (BUN) 16 mg/dL (9-23)
[2017-11-25 06:25] LABS: ALT (GPT) 67 IU/L (3-49); LIPASE 120 U/L (1.0-51.0); TROP-I INTERPRETATION NEGATIVE; TROPONIN-I 0.02 ng/mL (0.0-0.30)
[2017-11-25 06:27] LABS: TOTAL BILIRUBIN 0.8 mg/dL (0.0-1.0)
[2017-11-25 06:51] LABS: BENZODIAZEPINES, URINE SCREEN POSITIVE (200 ng/mL)
[2017-11-25] MEDS ORDERED: SINEQUAN100 MG PO (09:15)
[2017-11-25] MEDS ORDERED: SINEQUAN25 MG PO (09:16)
[2017-11-25] MEDS ORDERED: CATAPRES0.3 MG PO (09:18)
[2017-11-25] MEDS ORDERED: WELLBUTRIN SR150 MG PO (09:20)
[2017-11-25 13:18] LABS: MAGNESIUM 1.1 mg/dL (1.3-2.7)
[2017-11-25 19:37] VITALS: BP 100/72
[2017-11-25 23:27] VITALS: BP 115/60
[2017-11-26 04:29] VITALS: BP 110/64
[2017-11-26 06:15] LABS: CHLORIDE 105 MEQ/L (99-109); GFR ESTIMATE (CALCULATED) > 59 mL/min/ (58.99-99999); GLUCOSE 99 mg/dL (70-99); SODIUM 141 MEQ/L (136-147); UREA NITROGEN (BUN) 21 mg/dL (9-23)
[2017-11-26 07:40] VITALS: BP 119/72
[2017-11-26 09:08] LABS: MAGNESIUM 1.9 mg/dl (1.3-2.7); PHOSPHORUS 4.1 mg/dL (2.5-4.9)
[2017-11-26 11:46] VITALS: BP 132/82
[2017-11-26 16:19] VITALS: BP 127/82
[2017-11-26 19:50] VITALS: BP 146/88
[2017-11-27 00:21] VITALS: BP 143/65
[2017-11-27 07:56] LABS: BASOPHIL (%) 0.9 % (0-1); EOSINOPHIL (%) 5.5 % (0-5); EOSINOPHIL COUNT 0.3 K/uL (0-0.3); HEMATOCRIT 29.5 % (38.0-50.0); HEMOGLOBIN 8.9 G/DL (12.5-16.6); IMMATURE GRANULOCYTE (%) 0.2 % (0.0-0.7); LYMPHOCYTE (%) 19.5 % (15-42); LYMPHOCYTE COUNT 0.9 K/uL (1.0-2.8); MCHC 30.2 G/DL (30.0-36.0); MCV 92.8 FL (86-99); MONOCYTE (%) 14.6 % (3-12); MONOCYTE COUNT 0.7 K/uL (0-0.8); NEUTROPHIL (%) 59.3 % (45-76); NEUTROPHIL COUNT 2.7 K/uL (1.8-6.4); PLATELET COUNT 257 K/uL (156-360); RBC DIS.WIDTH-CV 20.7 % (11.8-14.6); RBC DIS.WIDTH-SD 70.2 % (39-53); RED BLOOD COUNT 3.18 M/uL (4.00-5.50); WHITE BLOOD COUNT 4.5 K/uL (4.1-10.2)
[2017-11-27 08:37] VITALS: BP 122/102
[2017-11-27 08:40] LABS: CHLORIDE 109 MEQ/L (99-109); CREATININE 0.8 MG/DL (0.6-1.3); GFR ESTIMATE (CALCULATED) > 59 mL/min/ (58.99-99999); GLUCOSE 96 mg/dL (70-99); SODIUM 143 MEQ/L (136-147); UREA NITROGEN (BUN) 21 mg/dL (9-23)
[2017-11-27 08:41] LABS: MAGNESIUM 1.6 mg/dl (1.3-2.7); POTASSIUM 4.1 MEQ/L (3.7-5.4)
[2017-11-27 08:56] LABS: INTER. NORMALIZED RATIO 0.9
[2017-11-27 08:59] LABS: PTT 27.7 SEC (25-37)
[2017-11-27 09:37] LABS: FOLIC ACID (FOLATE) 18.1 NG/ML (5.0-22.0)
[2017-11-27 10:00] VITALS: BP 120/82
[2017-11-27 16:24] VITALS: BP 170/102; BP 188/108
[2017-11-27 17:45] VITALS: BP 155/101
[2017-11-27 20:40] VITALS: BP 169/95
[2017-11-28 00:05] VITALS: BP 164/100
[2017-11-28 00:23] VITALS: BP 145/95
[2017-11-28 07:45] VITALS: BP 143/90
[2017-11-28 09:03] LABS: HEMATOCRIT 32.5 % (38.0-50.0); HEMOGLOBIN 10.2 G/DL (12.5-16.6); MCH 28.9 PG (29.0-34.0); MCHC 31.4 G/DL (30.0-36.0); MCV 92.1 FL (86-99); PLATELET COUNT 296 K/uL (156-360); RBC DIS.WIDTH-CV 20.7 % (11.8-14.6); RBC DIS.WIDTH-SD 69.4 % (39-53); RED BLOOD COUNT 3.53 M/uL (4.00-5.50); WHITE BLOOD COUNT 5.8 K/uL (4.1-10.2)
[2017-11-28 15:00] VITALS: BP 150/90
[2017-11-28 23:25] VITALS: BP 145/82
[2017-11-29 07:10] VITALS: BP 151/98
[2017-11-29 09:05] LABS: HEMATOCRIT 33.6 % (38.0-50.0); HEMOGLOBIN 10.4 G/DL (12.5-16.6); MCH 28.3 PG (29.0-34.0); MCV 91.6 FL (86-99); PLATELET COUNT 280 K/uL (156-360); RBC DIS.WIDTH-CV 20.7 % (11.8-14.6); RBC DIS.WIDTH-SD 70.5 % (39-53); RED BLOOD COUNT 3.67 M/uL (4.00-5.50); WHITE BLOOD COUNT 12.1 K/uL (4.1-10.2)
[2017-11-29 09:45] LABS: CHLORIDE 103 MEQ/L (99-109); CREATININE 0.9 MG/DL (0.6-1.3); GFR ESTIMATE (CALCULATED) > 59 mL/min/ (58.99-99999); GLUCOSE 89 mg/dL (70-99); POTASSIUM 4.2 MEQ/L (3.7-5.4); SODIUM 138 MEQ/L (136-147); UREA NITROGEN (BUN) 27 mg/dL (9-23)
[2017-11-29 16:10] VITALS: BP 102/74
[2017-11-29 20:45] VITALS: BP 129/76
[2017-11-30] VITALS (7 sets, daily range): BP systolic 120–137; BP diastolic 66–90
[2017-12-01 07:56] VITALS: BP 172/110
[2017-12-01 11:19] VITALS: BP 157/90
[2017-12-01 20:41] VITALS: BP 154/86
[2017-12-02 00:29] VITALS: BP 114/68
[2017-12-02 08:25] VITALS: BP 129/79
[2017-12-02] MEDS ORDERED: AMOX TR-K CLV1 EAC4 PO (12:11)
[2017-12-02] MEDS ORDERED: NICOTINE PATCH1 EAC2 TD (12:11)
[2017-12-02] MEDS ORDERED: BUPROPION HCL100 M1 PO (12:12)
[2017-12-02] MEDS ORDERED: SINEQUAN50 MG PO (12:12)
[2017-12-02] MEDS ORDERED: LIBRIUM25 MG PO (12:14)
[2017-12-02] MEDS ORDERED: CREON DR 12,001 EAC1 PO (12:15)
[2017-12-02] MEDS ORDERED: FOLIC ACID1 MG PO (12:18)
[2017-12-02] MEDS ORDERED: Thiamine,Vitamin B1 PO (12:19)
[2017-12-02] MEDS ORDERED: THERAGRAN1 TABLET PO (12:19)
[2017-12-02] MEDS ORDERED: ATIVAN2 MG PO (16:52)
[2017-12-02] MEDS ORDERED: SINEQUAN100 MG PO (16:52)
== END 2017-12-02 15:27 | DRG 897 ==
LOC: EME → EDBD 05:09 → 5EAST 07:53 → EDOF 07:53 → ENRESERV 07:57 → CANRESERV 07:57 → ENRESERV 13:09 → 5EAST 19:16 → ENRESERV 12-01 → 5EAST 12-01 19:10
PROVIDERS: Emergency Medicine; Internal Medicine
DX: F10.239 Alcohol dependence with withdrawal, unspecified (principal); K86.1 Other chronic pancreatitis; F10.229 Alcohol dependence with intoxication, unspecified; K29.20 Alcoholic gastritis without bleeding; I16.0 Hypertensive urgency; E87.0 Hyperosmolality and hypernatremia; I11.0 Hypertensive heart disease with heart failure; J43.9 Emphysema, unspecified; E83.42 Hypomagnesemia; F03.90 Unspecified dementia, unspecified severity, without behavioral disturbance, psychotic disturbance, mood disturbance, and anxiety; I50.9 Heart failure, unspecified; F41.9 Anxiety disorder, unspecified; F32.9 Major depressive disorder, single episode, unspecified; I25.10 Atherosclerotic heart disease of native coronary artery without angina pectoris; E87.6 Hypokalemia; Z68.30 Body mass index [BMI] 30.0-30.9, adult; D63.8 Anemia in other chronic diseases classified elsewhere; E86.0 Dehydration; K21.9 Gastro-esophageal reflux disease without esophagitis; Y90.0 Blood alcohol level of less than 20 mg/100 ml; Z59.0 Homelessness; F17.200 Nicotine dependence, unspecified, uncomplicated; Z91.81 History of falling; G89.29 Other chronic pain; Z86.73 Personal history of transient ischemic attack (TIA), and cerebral infarction without residual deficits; Z86.711 Personal history of pulmonary embolism; Z82.49 Family history of ischemic heart disease and other diseases of the circulatory system
CPT/HCPCS: 71045; 74176; 80048; 80053; 82140; 82607; 82746; 82948; 83690; 83735; 84100; 84484; 84999; 85025; 85027; 85610; 85730; 87493; 93005; 94640; 94640 76; 99202; 99281; 99285; C1753; G0480; J1650; J1885; J2060; J3411; J3475; J7030

== ENCOUNTER 2017-12-02 15:10 | Inpatient (IN) | payer OTHER ==
[~2017-12-02] VITALS: Ht 162.6 cm; Wt 77.3 kg
[~2017-12-02 15:10] MED LIST changes: +AMOX TR-K CLV1 EAC4 PO; +BUPROPION HCL100 M1 PO; +CREON DR 12,001 EAC1 PO; +SINEQUAN100 MG PO; +SINEQUAN50 MG PO
[2017-12-02 15:52] VITALS: BP 134/86
[2017-12-02 16:23] VITALS: BP 134/86
[2017-12-02] MEDS ORDERED: SINEQUAN100 MG PO (16:52)
[2017-12-02] MEDS ORDERED: ATIVAN2 MG PO (16:52)
[2017-12-03 07:48] VITALS: BP 161/75
[2017-12-03 15:39] VITALS: BP 135/80
[2017-12-03 22:09] VITALS: BP 124/76
[2017-12-04 07:25] VITALS: BP 126/75
[2017-12-04 15:37] VITALS: BP 117/66
[2017-12-05 07:52] VITALS: BP 155/73
[2017-12-05 15:41] VITALS: BP 164/110
[2017-12-05 19:06] VITALS: BP 147/85
[2017-12-06 08:20] VITALS: BP 146/84
[2017-12-06] MEDS ORDERED: VENLAFAXINE HCL75 M3 PO (09:11)
[2017-12-06] MEDS ORDERED: SINEQUAN25 MG PO (09:11)
[2017-12-06] MEDS ORDERED: BUSPAR15 MG PO (09:11)
[2017-12-06] MEDS ORDERED: AMOX TR-K CLV1 EAC4 PO (09:11)
[2017-12-06] MEDS ORDERED: CREON DR 12,001 EAC1 PO (09:13)
[2017-12-06] MEDS ORDERED: TIMOLOL MALEATE5 ML RIGHT EYE (09:13)
[2017-12-06] MEDS ORDERED: CATAPRES0.3 MG PO (09:13)
[2017-12-06] MEDS ORDERED: COMBIVENT RESPIM4 GM IH (09:13)
[2017-12-06] MEDS ORDERED: APRESOLINE50 MG PO (09:13)
[2017-12-06] MEDS ORDERED: VENTOLIN HFA18 GM IH (09:13)
[2017-12-06] MEDS ORDERED: LISINOPRIL20 MG PO (09:13)
== END 2017-12-06 14:13 | disposition home or self-care (01) | DRG 897 ==
LOC: 1WEST 15:10 → ENRESERV 15:13 → 1WEST 15:41
DX: F10.280 Alcohol dependence with alcohol-induced anxiety disorder (principal); K86.1 Other chronic pancreatitis; J44.9 Chronic obstructive pulmonary disease, unspecified; I25.10 Atherosclerotic heart disease of native coronary artery without angina pectoris; I10 Essential (primary) hypertension; F17.210 Nicotine dependence, cigarettes, uncomplicated; F10.24 Alcohol dependence with alcohol-induced mood disorder; Y90.0 Blood alcohol level of less than 20 mg/100 ml; Z91.19 Patient's noncompliance with other medical treatment and regimen; Z79.51 Long term (current) use of inhaled steroids; Z91.013 Allergy to seafood; Z88.5 Allergy status to narcotic agent; Z86.711 Personal history of pulmonary embolism; Z86.718 Personal history of other venous thrombosis and embolism; Z82.49 Family history of ischemic heart disease and other diseases of the circulatory system
CPT/HCPCS: 94640; 94640 76; 97150 GO; 97165 GO; 99202

== ENCOUNTER 2017-12-12 14:18 | Emergency (ER) | payer OTHER ==
[~2017-12-12] VITALS: Ht 165.1 cm; Wt 79.0 kg
[~2017-12-12 14:18] MED LIST changes: +ATIVAN2 MG PO; +VENLAFAXINE HCL75 M3 PO
[2017-12-12 16:36] VITALS: BP 128/71
== END 2017-12-12 16:42 | disposition home or self-care (01) ==
LOC: EME 14:18
DX: F10.129 Alcohol abuse with intoxication, unspecified (principal); Z86.73 Personal history of transient ischemic attack (TIA), and cerebral infarction without residual deficits; Z95.1 Presence of aortocoronary bypass graft; Z86.711 Personal history of pulmonary embolism; F17.200 Nicotine dependence, unspecified, uncomplicated
CPT/HCPCS: 99281; 99283

== ENCOUNTER 2017-12-13 13:36 | Emergency (ER) | payer OTHER ==
[~2017-12-13] VITALS: Ht 162.6 cm; Wt 81.1 kg
[2017-12-13 13:46] VITALS: BP 136/98
[2017-12-13 14:51] LABS: BASOPHIL (%) 1.3 % (0-1); BASOPHIL COUNT 0.1 K/uL (0-0.1); EOSINOPHIL (%) 0.6 % (0-5); EOSINOPHIL COUNT 0.1 K/uL (0-0.3); HEMATOCRIT 38.9 % (38.0-50.0); HEMOGLOBIN 11.9 G/DL (12.5-16.6); IMMATURE GRANULOCYTE (%) 0.3 % (0.0-0.7); LYMPHOCYTE (%) 21.1 % (15-42); LYMPHOCYTE COUNT 2.3 K/uL (1.0-2.8); MCH 27.9 PG (29.0-34.0); MCHC 30.6 G/DL (30.0-36.0); MCV 91.3 FL (86-99); MONOCYTE (%) 5.1 % (3-12); MONOCYTE COUNT 0.6 K/uL (0-0.8); NEUTROPHIL (%) 71.6 % (45-76); NEUTROPHIL COUNT 7.9 K/uL (1.8-6.4); RBC DIS.WIDTH-CV 19.5 % (11.8-14.6); RBC DIS.WIDTH-SD 65.9 % (39-53); RED BLOOD COUNT 4.26 M/uL (4.00-5.50)
[2017-12-13 14:52] LABS: PLATELET COUNT 436 K/uL (156-360)
[2017-12-13 15:04] LABS: ALBUMIN 4.4 g/dL (3.2-4.8); CHLORIDE 107 mEq/L (99-109); POTASSIUM 3.9 mEq/L (3.7-5.4); SODIUM 147 mEq/L (136-147)
[2017-12-13 15:07] LABS: GLUCOSE 90 mg/dL (70-99); TOTAL PROTEIN 7.1 g/dL (6.4-8.3)
[2017-12-13 15:08] LABS: TOTAL BILIRUBIN 0.4 mg/dL (0.0-1.0)
[2017-12-13 15:10] LABS: ALKALINE PHOSPHATASE 119 IU/L (3-129); CREATININE 0.8 mg/dL (0.6-1.3); GFR ESTIMATE (CALCULATED) > 59 mL/min/ (58.99-99999)
[2017-12-13 15:11] LABS: UREA NITROGEN (BUN) 24 mg/dL (9-23)
[2017-12-13 15:12] LABS: AST (GOT) 44 IU/L (2-34); DIRECT BILIRUBIN 0.2 mg/dL (0.0-0.3)
[2017-12-13 15:13] LABS: ALT (GPT) 35 IU/L (3-49)
[2017-12-13 15:14] LABS: LIPASE 63 U/L (1.0-51.0)
[2017-12-14] MEDS ORDERED: ATIVAN2 MG PO (09:19)
== END 2017-12-13 15:40 | disposition left against medical advice (07) ==
LOC: EME 13:36
PROVIDERS: Physician Assistant
DX: F10.99 Alcohol use, unspecified with unspecified alcohol-induced disorder (principal); M79.642 Pain in left hand; Z53.21 Procedure and treatment not carried out due to patient leaving prior to being seen by health care provider
CPT/HCPCS: 73130; 80048; 80076; 81003; 83690; 85025

== ENCOUNTER 2017-12-13 20:07 | Emergency (ER) | payer OTHER ==
[~2017-12-13] VITALS: Ht 172.7 cm; Wt 81.7 kg
[2017-12-14 06:45] LABS: APPEARANCE CLEAR ((CLEAR)); BILIRUBIN NEGATIVE; BLOOD SMALL; COLOR YELLOW ((YELLOW)); GLUCOSE (STRIP) NEGATIVE; KETONES 5; LEUKOCYTES NEGATIVE; NITRITE NEGATIVE; PROTEIN (STRIP) 30; SPECIFIC GRAVITY 1.012 (1.000-1.030); UROBILINOGEN 0.2 MG/DL (0.2-1.0)
[2017-12-14 06:48] LABS: BACTERIA NONE SEEN /HPF; EPITHELIAL CELLS NONE SEEN /HPF; HYALINE CASTS 0-5 /LPF; MUCUS TRACE /LPF; RED BLOOD CELLS 0-5 /HPF (0-5); WHITE BLOOD CELLS NONE SEEN /HPF (0-5)
[2017-12-14 07:05] LABS: AMPHETAMINE NEGATIVE (500 ng/mL); BARBITURATES NEGATIVE (200 ng/mL); BENZODIAZEPINES PRESUMPTIVE POSITIVE (150 ng/mL); BUPRENORPHINE NEGATIVE (10 ng/mL); COCAINE NEGATIVE (150 ng/mL); METHADONE NEGATIVE (200 ng/mL); METHAMPHETAMINE NEGATIVE (500 ng/mL); OPIATES (MORPHINE) NEGATIVE (100 ng/mL); OXYCODONE NEGATIVE (100 ng/mL); PHENCYCLIDINE NEGATIVE (25 ng/mL); PROPOXYPHENE NEGATIVE (300 ng/mL); THC CANNABINOIDS NEGATIVE (50 ng/mL); TRICYCLIC ANTIDEPRESSANTS PRESUMPTIVE POSITIVE (300 ng/mL)
[2017-12-14] MEDS ORDERED: ATIVAN2 MG PO (09:19)
[2017-12-14 09:22] VITALS: BP 189/99
[2017-12-14 09:43] LABS: BENZODIAZEPINES, URINE SCREEN POSITIVE (200 ng/mL)
== END 2017-12-14 09:32 | disposition home or self-care (01) ==
LOC: EME → EDBD 20:07 → EME 12-14 09:32
PROVIDERS: Physician Assistant
DX: F10.129 Alcohol abuse with intoxication, unspecified (principal); T68.XXXA Hypothermia, initial encounter; X31.XXXA Exposure to excessive natural cold, initial encounter; R31.9 Hematuria, unspecified; R00.0 Tachycardia, unspecified; I10 Essential (primary) hypertension; J44.9 Chronic obstructive pulmonary disease, unspecified; Z86.73 Personal history of transient ischemic attack (TIA), and cerebral infarction without residual deficits; Z95.1 Presence of aortocoronary bypass graft; Z86.711 Personal history of pulmonary embolism; Y90.8 Blood alcohol level of 240 mg/100 ml or more; F17.200 Nicotine dependence, unspecified, uncomplicated
CPT/HCPCS: 81003; 84999; 93005; 99281; 99285; G0480

== ENCOUNTER 2017-12-14 15:34 | Emergency (ER) | payer OTHER ==
[~2017-12-14] VITALS: Ht 167.6 cm; Wt 78.1 kg
[2017-12-14 16:10] LABS: BASOPHIL (%) 1.3 % (0-1); BASOPHIL COUNT 0.1 K/uL (0-0.1); EOSINOPHIL (%) 0.5 % (0-5); HEMATOCRIT 33.2 % (38.0-50.0); HEMOGLOBIN 10.4 G/DL (12.5-16.6); IMMATURE GRANULOCYTE (%) 0.2 % (0.0-0.7); LYMPHOCYTE (%) 19.6 % (15-42); LYMPHOCYTE COUNT 1.7 K/uL (1.0-2.8); MCH 28.3 PG (29.0-34.0); MCHC 31.3 G/DL (30.0-36.0); MCV 90.2 FL (86-99); MONOCYTE (%) 8.7 % (3-12); MONOCYTE COUNT 0.8 K/uL (0-0.8); NEUTROPHIL (%) 69.7 % (45-76); PLATELET COUNT 362 K/uL (156-360); RBC DIS.WIDTH-CV 19.5 % (11.8-14.6); RBC DIS.WIDTH-SD 65.2 % (39-53); RED BLOOD COUNT 3.68 M/uL (4.00-5.50); WHITE BLOOD COUNT 8.6 K/uL (4.1-10.2)
[2017-12-14 16:18] LABS: ALBUMIN 3.9 g/dL (3.2-4.8); CHLORIDE 105 mEq/L (99-109); POTASSIUM 3.4 mEq/L (3.7-5.4); SODIUM 145 mEq/L (136-147)
[2017-12-14 16:19] LABS: MAGNESIUM 1.7 mg/dL (1.3-2.7)
[2017-12-14 16:21] LABS: GLUCOSE 76 mg/dL (70-99); TOTAL PROTEIN 6.2 g/dL (6.4-8.3)
[2017-12-14 16:23] LABS: SERUM ETHYL ALCOHOL 273 mg/dL
[2017-12-14 16:24] LABS: CREATININE 0.7 mg/dL (0.6-1.3); GFR ESTIMATE (CALCULATED) > 59 mL/min/ (58.99-99999); TOTAL BILIRUBIN 0.6 mg/dL (0.0-1.0)
[2017-12-14 16:25] LABS: ALKALINE PHOSPHATASE 99 IU/L (3-129)
[2017-12-14 16:26] LABS: AST (GOT) 47 IU/L (2-34); DIRECT BILIRUBIN 0.3 mg/dL (0.0-0.3); UREA NITROGEN (BUN) 19 mg/dL (9-23)
[2017-12-14 16:28] LABS: ACETAMINOPHEN (TYLENOL) < 10 mcg/mL (10-30); ALT (GPT) 38 IU/L (3-49); SALICYLATE < 5.0 MG/DL (15-30)
[2017-12-14 16:29] LABS: LIPASE 40 U/L (1.0-51.0)
[2017-12-14 16:43] LABS: APPEARANCE CLEAR ((CLEAR)); BILIRUBIN NEGATIVE; BLOOD NEGATIVE; COLOR YELLOW ((YELLOW)); GLUCOSE (STRIP) NEGATIVE; KETONES 5; LEUKOCYTES NEGATIVE; NITRITE NEGATIVE; PROTEIN (STRIP) 30; SPECIFIC GRAVITY 1.012 (1.000-1.030); UROBILINOGEN 0.2 MG/DL (0.2-1.0)
[2017-12-14 16:51] LABS: AMPHETAMINE NEGATIVE (500 ng/mL); BARBITURATES NEGATIVE (200 ng/mL); BENZODIAZEPINES PRESUMPTIVE POSITIVE (150 ng/mL); BUPRENORPHINE NEGATIVE (10 ng/mL); COCAINE NEGATIVE (150 ng/mL); METHADONE NEGATIVE (200 ng/mL); METHAMPHETAMINE NEGATIVE (500 ng/mL); OPIATES (MORPHINE) NEGATIVE (100 ng/mL); OXYCODONE NEGATIVE (100 ng/mL); PHENCYCLIDINE NEGATIVE (25 ng/mL); PROPOXYPHENE NEGATIVE (300 ng/mL); THC CANNABINOIDS NEGATIVE (50 ng/mL); TRICYCLIC ANTIDEPRESSANTS PRESUMPTIVE POSITIVE (300 ng/mL)
[2017-12-14 19:21] LABS: BENZODIAZEPINES, URINE SCREEN POSITIVE (200 ng/mL)
[2017-12-15 00:12] VITALS: BP 175/106
== END 2017-12-15 00:14 | disposition home or self-care (01) ==
LOC: EME 15:34
PROVIDERS: Physician Assistant
DX: F10.229 Alcohol dependence with intoxication, unspecified (principal); I11.0 Hypertensive heart disease with heart failure; J44.9 Chronic obstructive pulmonary disease, unspecified; K21.9 Gastro-esophageal reflux disease without esophagitis; R56.9 Unspecified convulsions; F03.90 Unspecified dementia, unspecified severity, without behavioral disturbance, psychotic disturbance, mood disturbance, and anxiety; F41.9 Anxiety disorder, unspecified; F32.9 Major depressive disorder, single episode, unspecified; F17.200 Nicotine dependence, unspecified, uncomplicated; Y90.8 Blood alcohol level of 240 mg/100 ml or more; Z04.6 Encounter for general psychiatric examination, requested by authority; Z86.711 Personal history of pulmonary embolism; Z86.73 Personal history of transient ischemic attack (TIA), and cerebral infarction without residual deficits; Z95.1 Presence of aortocoronary bypass graft; Z88.5 Allergy status to narcotic agent
CPT/HCPCS: 70450; 71045; 72125; 73030; 80048; 80076; 81003; 83690; 83735; 84999; 85025; 90837; 93005; 99281; 99285; G0480; J3411; J3475; J7030

== ENCOUNTER 2017-12-16 13:12 | Emergency (ER) | payer OTHER ==
[~2017-12-16] VITALS: Ht 162.6 cm; Wt 76.1 kg
[2017-12-16 13:38] LABS: BASOPHIL COUNT 0.1 K/uL (0-0.1); EOSINOPHIL (%) 2.5 % (0-5); EOSINOPHIL COUNT 0.1 K/uL (0-0.3); HEMATOCRIT 37.2 % (38.0-50.0); HEMOGLOBIN 11.5 G/DL (12.5-16.6); IMMATURE GRANULOCYTE (%) 0.4 % (0.0-0.7); LYMPHOCYTE COUNT 1.4 K/uL (1.0-2.8); MCH 28.5 PG (29.0-34.0); MCHC 30.9 G/DL (30.0-36.0); MCV 92.1 FL (86-99); MONOCYTE (%) 10.3 % (3-12); MONOCYTE COUNT 0.6 K/uL (0-0.8); NEUTROPHIL (%) 59.8 % (45-76); NEUTROPHIL COUNT 3.4 K/uL (1.8-6.4); PLATELET COUNT 324 K/uL (156-360); RBC DIS.WIDTH-CV 19.5 % (11.8-14.6); RBC DIS.WIDTH-SD 65.8 % (39-53); RED BLOOD COUNT 4.04 M/uL (4.00-5.50); WHITE BLOOD COUNT 5.6 K/uL (4.1-10.2)
[2017-12-16 13:48] LABS: APPEARANCE SL.HAZY ((CLEAR)); BILIRUBIN NEGATIVE; BLOOD SMALL; COLOR YELLOW ((YELLOW)); GLUCOSE (STRIP) NEGATIVE; KETONES 5; LEUKOCYTES NEGATIVE; NITRITE NEGATIVE; PROTEIN (STRIP) 30; SPECIFIC GRAVITY 1.011 (1.000-1.030); UROBILINOGEN 0.2 MG/DL (0.2-1.0)
[2017-12-16 13:50] LABS: ALBUMIN 3.8 g/dL (3.2-4.8); CHLORIDE 105 mEq/L (99-109); POTASSIUM 3.8 mEq/L (3.7-5.4); SODIUM 140 mEq/L (136-147)
[2017-12-16 13:52] LABS: GLUCOSE 60 mg/dL (70-99)
[2017-12-16 13:53] LABS: TOTAL PROTEIN 5.8 g/dL (6.4-8.3)
[2017-12-16 13:54] LABS: BACTERIA RARE /HPF; EPITHELIAL CELLS RARE /HPF; HYALINE CASTS 15-20 /LPF; MUCUS TRACE /LPF; RED BLOOD CELLS 0-5 /HPF (0-5); UCUL ADDED? YES
[2017-12-16 13:54] LABS: TOTAL BILIRUBIN 0.6 mg/dL (0.0-1.0)
[2017-12-16 13:55] LABS: SERUM ETHYL ALCOHOL 247 mg/dL
[2017-12-16 13:56] LABS: CREATININE 1.1 mg/dL (0.6-1.3); GFR ESTIMATE (CALCULATED) > 59 mL/min/ (58.99-99999)
[2017-12-16 13:57] LABS: ALKALINE PHOSPHATASE 108 IU/L (3-129)
[2017-12-16 13:57] LABS: AMPHETAMINE NEGATIVE (500 ng/mL); BARBITURATES NEGATIVE (200 ng/mL); BENZODIAZEPINES PRESUMPTIVE POSITIVE (150 ng/mL); BUPRENORPHINE NEGATIVE (10 ng/mL); COCAINE NEGATIVE (150 ng/mL); METHADONE NEGATIVE (200 ng/mL); METHAMPHETAMINE NEGATIVE (500 ng/mL); OPIATES (MORPHINE) NEGATIVE (100 ng/mL); OXYCODONE NEGATIVE (100 ng/mL); PHENCYCLIDINE NEGATIVE (25 ng/mL); PROPOXYPHENE NEGATIVE (300 ng/mL); THC CANNABINOIDS NEGATIVE (50 ng/mL); TRICYCLIC ANTIDEPRESSANTS PRESUMPTIVE POSITIVE (300 ng/mL)
[2017-12-16 13:58] LABS: AST (GOT) 51 IU/L (2-34); UREA NITROGEN (BUN) 20 mg/dL (9-23)
[2017-12-16 14:00] LABS: ACETAMINOPHEN (TYLENOL) < 10 mcg/mL (10-30); ALT (GPT) 37 IU/L (3-49); SALICYLATE < 5.0 MG/DL (15-30)
[2017-12-16 14:22] LABS: BENZODIAZEPINES, URINE SCREEN POSITIVE (200 ng/mL)
[2017-12-16 20:02] VITALS: BP 109/70
== END 2017-12-16 20:03 | disposition home or self-care (01) ==
LOC: EME 13:12
PROVIDERS: Emergency Medicine
DX: F10.129 Alcohol abuse with intoxication, unspecified (principal); Y90.8 Blood alcohol level of 240 mg/100 ml or more; F32.9 Major depressive disorder, single episode, unspecified; F31.9 Bipolar disorder, unspecified; I10 Essential (primary) hypertension; J44.9 Chronic obstructive pulmonary disease, unspecified; K21.9 Gastro-esophageal reflux disease without esophagitis; F03.90 Unspecified dementia, unspecified severity, without behavioral disturbance, psychotic disturbance, mood disturbance, and anxiety; R56.9 Unspecified convulsions; F41.9 Anxiety disorder, unspecified; F17.200 Nicotine dependence, unspecified, uncomplicated; Z86.711 Personal history of pulmonary embolism; Z86.73 Personal history of transient ischemic attack (TIA), and cerebral infarction without residual deficits; Z95.1 Presence of aortocoronary bypass graft; Z88.5 Allergy status to narcotic agent
CPT/HCPCS: 80053; 81003; 82948; 84999; 85025; 87086; 90837; 93005; 99281; 99285; G0480

== ENCOUNTER 2017-12-19 00:15 | Emergency (ER) | payer OTHER ==
[~2017-12-19] VITALS: Ht 165.1 cm; Wt 77.7 kg
[2017-12-19 01:14] LABS: HEMATOCRIT 34.9 % (38.0-50.0); HEMOGLOBIN 11.2 G/DL (12.5-16.6); MCH 28.9 PG (29.0-34.0); MCHC 32.1 G/DL (30.0-36.0); MCV 89.9 FL (86-99); PLATELET COUNT 308 K/uL (156-360); RBC DIS.WIDTH-CV 20.4 % (11.8-14.6); RBC DIS.WIDTH-SD 66.2 % (39-53); RED BLOOD COUNT 3.88 M/uL (4.00-5.50); WHITE BLOOD COUNT 10.8 K/uL (4.1-10.2)
[2017-12-19 01:25] LABS: ALBUMIN 3.9 g/dL (3.2-4.8); CHLORIDE 102 mEq/L (99-109); POTASSIUM 3.4 mEq/L (3.7-5.4); SODIUM 143 mEq/L (136-147)
[2017-12-19 01:27] LABS: TOTAL PROTEIN 6.4 g/dL (6.4-8.3)
[2017-12-19 01:30] LABS: SERUM ETHYL ALCOHOL 100 mg/dL
[2017-12-19 01:31] LABS: ALKALINE PHOSPHATASE 107 IU/L (3-129); GFR ESTIMATE (CALCULATED) > 59 mL/min/ (58.99-99999)
[2017-12-19 01:32] LABS: UREA NITROGEN (BUN) 23 mg/dL (9-23)
[2017-12-19 01:34] LABS: ALT (GPT) 61 IU/L (3-49); LIPASE 68 U/L (1.0-51.0)
[2017-12-19 01:36] LABS: AST (GOT) 119 IU/L (2-34); GLUCOSE 98 mg/dL (70-99); TOTAL BILIRUBIN 0.9 mg/dL (0.0-1.0)
[2017-12-19 01:37] LABS: TROP-I INTERPRETATION NEGATIVE; TROPONIN-I 0.04 ng/mL (0.0-0.30)
[2017-12-19] MEDS ORDERED: ATIVAN1 MG PO ×2 (04:47→17:34)
[2017-12-19 05:51] VITALS: BP 155/86
[2017-12-19] MEDS ORDERED: XARELTO20 MG PO (17:18)
[2017-12-19] MEDS ORDERED: FOLIC ACID1 MG PO (17:18)
[2017-12-19] MEDS ORDERED: VITAMIN B-1100 MG PO (17:19)
[2017-12-19] MEDS ORDERED: THERA1 EAC2 PO (17:22)
[2017-12-19] MEDS ORDERED: PREDNISONE10 MG PO (17:22)
[2017-12-19] MEDS ORDERED: SINEQUAN25 MG PO (17:23)
[2017-12-19] MEDS ORDERED: EFFEXOR75 MG PO (17:24)
[2017-12-19] MEDS ORDERED: BUSPAR30 MG PO (17:26)
[2017-12-19] MEDS ORDERED: ADVAIR HFA120 INHALA IH (17:27)
[2017-12-19] MEDS ORDERED: VENTOLIN HFA18 GM IH (17:30)
[2017-12-19] MEDS ORDERED: COMBIVENT RESPIM4 GM IH (17:31)
[2017-12-19] MEDS ORDERED: BUPROPION HCL150 M2 PO (17:35)
[2017-12-19] MEDS ORDERED: PROTONIX40 MG PO (17:36)
== END 2017-12-19 05:52 | disposition home or self-care (01) ==
LOC: EME 00:15
PROVIDERS: Emergency Medicine
DX: R19.7 Diarrhea, unspecified (principal); F10.239 Alcohol dependence with withdrawal, unspecified; E87.2 Acidosis; Y90.5 Blood alcohol level of 100-119 mg/100 ml; K86.1 Other chronic pancreatitis; J44.9 Chronic obstructive pulmonary disease, unspecified; I11.0 Hypertensive heart disease with heart failure; I50.9 Heart failure, unspecified; Z86.711 Personal history of pulmonary embolism; Z95.1 Presence of aortocoronary bypass graft; F03.90 Unspecified dementia, unspecified severity, without behavioral disturbance, psychotic disturbance, mood disturbance, and anxiety; Z86.73 Personal history of transient ischemic attack (TIA), and cerebral infarction without residual deficits; R56.9 Unspecified convulsions; F17.200 Nicotine dependence, unspecified, uncomplicated; F32.9 Major depressive disorder, single episode, unspecified; F41.9 Anxiety disorder, unspecified; K21.9 Gastro-esophageal reflux disease without esophagitis; Z88.5 Allergy status to narcotic agent
CPT/HCPCS: 70450; 71045; 72125; 74176; 80053; 83605; 83690; 84484; 85027; 87040; 87077; 87186; 87801; 93005; 99281; 99285; G0480; J2060; J7030

== ENCOUNTER 2017-12-19 14:05 | Inpatient (IN) | payer OTHER ==
[~2017-12-19] VITALS: Ht 165.1 cm; Wt 76.8 kg
[~2017-12-19 14:05] MED LIST changes: +ATIVAN1 MG PO
[2017-12-19 15:18] LABS: HEMATOCRIT 32.5 % (38.0-50.0); HEMOGLOBIN 10.3 G/DL (12.5-16.6); MCH 28.8 PG (29.0-34.0); MCHC 31.7 G/DL (30.0-36.0); MCV 90.8 FL (86-99); PLATELET COUNT 223 K/uL (156-360); RBC DIS.WIDTH-CV 20.4 % (11.8-14.6); RBC DIS.WIDTH-SD 67.1 % (39-53); RED BLOOD COUNT 3.58 M/uL (4.00-5.50); WHITE BLOOD COUNT 8.3 K/uL (4.1-10.2)
[2017-12-19 15:20] LABS: BASOPHIL (%) 0.4 % (0-1); EOSINOPHIL (%) 0.1 % (0-5); IMMATURE GRANULOCYTE (%) 0.5 % (0.0-0.7); LYMPHOCYTE (%) 18.3 % (15-42); LYMPHOCYTE COUNT 1.5 K/uL (1.0-2.8); MONOCYTE (%) 11.6 % (3-12); NEUTROPHIL (%) 69.1 % (45-76); NEUTROPHIL COUNT 5.7 K/uL (1.8-6.4)
[2017-12-19 15:34] LABS: CHLORIDE 101 mEq/L (99-109); POTASSIUM 3.2 mEq/L (3.7-5.4); SODIUM 141 mEq/L (136-147)
[2017-12-19 15:36] LABS: GLUCOSE 83 mg/dL (70-99)
[2017-12-19 15:39] LABS: SERUM ETHYL ALCOHOL 60 mg/dL
[2017-12-19 15:40] LABS: GFR ESTIMATE (CALCULATED) > 59 mL/min/ (58.99-99999)
[2017-12-19 15:41] LABS: UREA NITROGEN (BUN) 24 mg/dL (9-23)
[2017-12-19] MEDS ORDERED: XARELTO20 MG PO (17:18)
[2017-12-19] MEDS ORDERED: FOLIC ACID1 MG PO (17:18)
[2017-12-19] MEDS ORDERED: VITAMIN B-1100 MG PO (17:19)
[2017-12-19] MEDS ORDERED: PREDNISONE10 MG PO (17:22)
[2017-12-19] MEDS ORDERED: THERA1 EAC2 PO (17:22)
[2017-12-19] MEDS ORDERED: SINEQUAN25 MG PO (17:23)
[2017-12-19] MEDS ORDERED: EFFEXOR75 MG PO (17:24)
[2017-12-19] MEDS ORDERED: BUSPAR30 MG PO (17:26)
[2017-12-19] MEDS ORDERED: ADVAIR HFA120 INHALA IH (17:27)
[2017-12-19 17:30] LABS: MAGNESIUM 1.3 mg/dL (1.3-2.7)
[2017-12-19] MEDS ORDERED: VENTOLIN HFA18 GM IH (17:30)
[2017-12-19] MEDS ORDERED: COMBIVENT RESPIM4 GM IH (17:31)
[2017-12-19] MEDS ORDERED: ATIVAN1 MG PO (17:34)
[2017-12-19] MEDS ORDERED: BUPROPION HCL150 M2 PO (17:35)
[2017-12-19] MEDS ORDERED: PROTONIX40 MG PO (17:36)
[2017-12-19 18:22] VITALS: BP 174/95
[2017-12-19 20:13] VITALS: BP 162/86
[2017-12-19 22:25] LABS: C DIFF TOXIN NEGATIVE (NEGATIVE)
[2017-12-19 22:39] VITALS: BP 172/90
[2017-12-20 03:56] VITALS: BP 151/94
[2017-12-20 07:04] VITALS: BP 184/96
[2017-12-20 08:51] LABS: CHLORIDE 103 MEQ/L (99-109); CREATININE 0.7 MG/DL (0.6-1.3); GFR ESTIMATE (CALCULATED) > 59 mL/min/ (58.99-99999); GLUCOSE 94 mg/dL (70-99); POTASSIUM 3.5 MEQ/L (3.7-5.4); SODIUM 142 MEQ/L (136-147); UREA NITROGEN (BUN) 18 mg/dL (9-23)
[2017-12-20 11:36] VITALS: BP 93/52
[2017-12-20 15:51] VITALS: BP 150/81
[2017-12-20 21:29] VITALS: BP 150/88
[2017-12-20 23:15] VITALS: BP 156/99
[2017-12-21 06:06] LABS: HEMATOCRIT 27.5 % (38.0-50.0); HEMOGLOBIN 8.5 G/DL (12.5-16.6); MCH 28.8 PG (29.0-34.0); MCHC 30.9 G/DL (30.0-36.0); MCV 93.2 FL (86-99); PLATELET COUNT 181 K/uL (156-360); RBC DIS.WIDTH-CV 20.5 % (11.8-14.6); RED BLOOD COUNT 2.95 M/uL (4.00-5.50); WHITE BLOOD COUNT 3.7 K/uL (4.1-10.2)
[2017-12-21 06:40] LABS: CHLORIDE 108 MEQ/L (99-109); CREATININE 0.8 MG/DL (0.6-1.3); GFR ESTIMATE (CALCULATED) > 59 mL/min/ (58.99-99999); GLUCOSE 90 mg/dL (70-99); MAGNESIUM 2.3 mg/dl (1.3-2.7); POTASSIUM 3.4 MEQ/L (3.7-5.4); SODIUM 143 MEQ/L (136-147); UREA NITROGEN (BUN) 13 mg/dL (9-23)
[2017-12-21 07:03] VITALS: BP 144/90
[2017-12-21 15:10] VITALS: BP 163/100
[2017-12-22 00:16] VITALS: BP 00/00
[2017-12-22 06:56] LABS: HEMOGLOBIN 8.9 G/DL (12.5-16.6); MCHC 30.7 G/DL (30.0-36.0); MCV 94.5 FL (86-99); PLATELET COUNT 200 K/uL (156-360); RBC DIS.WIDTH-CV 20.9 % (11.8-14.6); RBC DIS.WIDTH-SD 70.5 % (39-53); RED BLOOD COUNT 3.07 M/uL (4.00-5.50); WHITE BLOOD COUNT 5.4 K/uL (4.1-10.2)
[2017-12-22 07:05] VITALS: BP 156/92
[2017-12-22 07:24] LABS: CHLORIDE 107 MEQ/L (99-109); POTASSIUM 3.9 MEQ/L (3.7-5.4); SODIUM 140 MEQ/L (136-147)
[2017-12-22 07:29] LABS: CREATININE 0.8 MG/DL (0.6-1.3); GFR ESTIMATE (CALCULATED) > 59 mL/min/ (58.99-99999); GLUCOSE 94 mg/dL (70-99); UREA NITROGEN (BUN) 10 mg/dL (9-23)
[2017-12-22 12:07] LABS: APPEARANCE CLEAR ((CLEAR)); BILIRUBIN NEGATIVE; BLOOD NEGATIVE; COLOR YELLOW ((YELLOW)); GLUCOSE (STRIP) NEGATIVE; KETONES NEGATIVE; LEUKOCYTES NEGATIVE; NITRITE NEGATIVE; PROTEIN (STRIP) NEGATIVE; SPECIFIC GRAVITY 1.009 (1.000-1.030); UCUL ADDED? NO; UROBILINOGEN 0.2 MG/DL (0.2-1.0)
[2017-12-22 16:07] VITALS: BP 140/94
[2017-12-23 00:11] VITALS: BP 116/71
[2017-12-23 06:35] LABS: HEMATOCRIT 27.7 % (38.0-50.0); HEMOGLOBIN 8.5 G/DL (12.5-16.6); MCH 28.9 PG (29.0-34.0); MCHC 30.7 G/DL (30.0-36.0); MCV 94.2 FL (86-99); PLATELET COUNT 196 K/uL (156-360); RBC DIS.WIDTH-CV 21.1 % (11.8-14.6); RBC DIS.WIDTH-SD 71.4 % (39-53); RED BLOOD COUNT 2.94 M/uL (4.00-5.50); WHITE BLOOD COUNT 4.7 K/uL (4.1-10.2)
[2017-12-23 06:51] LABS: CHLORIDE 107 MEQ/L (99-109); GFR ESTIMATE (CALCULATED) > 59 mL/min/ (58.99-99999); GLUCOSE 99 mg/dL (70-99); POTASSIUM 3.9 MEQ/L (3.7-5.4); SODIUM 142 MEQ/L (136-147); UREA NITROGEN (BUN) 13 mg/dL (9-23)
[2017-12-23 08:07] VITALS: BP 164/106
[2017-12-23 08:45] VITALS: BP 150/98
[2017-12-23 15:30] VITALS: BP 119/77
[2017-12-23 23:40] VITALS: BP 142/85
[2017-12-24 07:02] VITALS: BP 134/70
[2017-12-24 16:43] VITALS: BP 122/80
[2017-12-24 22:56] VITALS: BP 147/81
[2017-12-25 06:41] LABS: HEMATOCRIT 28.2 % (38.0-50.0); HEMOGLOBIN 8.4 G/DL (12.5-16.6); MCH 28.2 PG (29.0-34.0); MCHC 29.8 G/DL (30.0-36.0); MCV 94.6 FL (86-99); PLATELET COUNT 247 K/uL (156-360); RBC DIS.WIDTH-CV 20.9 % (11.8-14.6); RED BLOOD COUNT 2.98 M/uL (4.00-5.50); WHITE BLOOD COUNT 5.3 K/uL (4.1-10.2)
[2017-12-25 07:03] LABS: CHLORIDE 103 MEQ/L (99-109); GFR ESTIMATE (CALCULATED) > 59 mL/min/ (58.99-99999); GLUCOSE 131 mg/dL (70-99); POTASSIUM 4.1 MEQ/L (3.7-5.4); SODIUM 139 MEQ/L (136-147)
[2017-12-25 07:04] LABS: UREA NITROGEN (BUN) 23 mg/dL (9-23)
[2017-12-25 07:14] VITALS: BP 133/77
[2017-12-25 16:24] VITALS: BP 143/92
[2017-12-25 23:43] VITALS: BP 151/87
[2017-12-26 07:40] VITALS: BP 128/84
[2017-12-26 16:00] VITALS: BP 116/77
[2017-12-27 00:12] VITALS: BP 131/79
[2017-12-27 06:32] LABS: HEMATOCRIT 30.6 % (38.0-50.0); HEMOGLOBIN 9.3 G/DL (12.5-16.6); MCH 28.2 PG (29.0-34.0); MCHC 30.4 G/DL (30.0-36.0); MCV 92.7 FL (86-99); RBC DIS.WIDTH-CV 20.4 % (11.8-14.6); RBC DIS.WIDTH-SD 69.6 % (39-53); WHITE BLOOD COUNT 5.9 K/uL (4.1-10.2)
[2017-12-27 06:36] LABS: PLATELET COUNT 328 K/uL (156-360)
[2017-12-27 06:45] VITALS: BP 133/74
[2017-12-27 07:07] LABS: CHLORIDE 99 MEQ/L (99-109); GFR ESTIMATE (CALCULATED) > 59 mL/min/ (58.99-99999); POTASSIUM 4.6 MEQ/L (3.7-5.4); SODIUM 138 MEQ/L (136-147); UREA NITROGEN (BUN) 29 mg/dL (9-23)
[2017-12-27 07:09] LABS: GLUCOSE 80 mg/dL (70-99)
[2017-12-27 15:40] VITALS: BP 130/79
[2017-12-27 23:07] VITALS: BP 114/73
[2017-12-28 07:25] VITALS: BP 121/78
[2017-12-28 16:11] VITALS: BP 96/66
[2017-12-28 23:23] VITALS: BP 133/83
[2017-12-29 07:00] VITALS: BP 129/66
[2017-12-29 16:27] VITALS: BP 124/72
[2017-12-29 23:31] VITALS: BP 135/79
[2017-12-30 07:59] VITALS: BP 123/79
[2017-12-30 16:43] VITALS: BP 127/69
[2017-12-30 23:51] VITALS: BP 109/54
[2017-12-31 07:45] VITALS: BP 129/71
[2017-12-31] MEDS ORDERED: LOPERAMIDE2 MG PO (09:55)
[2017-12-31] MEDS ORDERED: ZOFRAN4 MG PO (09:55)
== END 2017-12-31 13:29 | disposition home or self-care (01) | DRG 897 ==
LOC: EME 14:05 → EDOF 16:22 → 5EAST 16:22 → ENRESERV 16:31 → 5EAST 18:17 → ENRESERV 19:15 → 5EAST 20:29
PROVIDERS: Emergency Medicine; Hospitalist; Internal Medicine
DX: F10.239 Alcohol dependence with withdrawal, unspecified (principal); N30.00 Acute cystitis without hematuria; K52.9 Noninfective gastroenteritis and colitis, unspecified; J44.9 Chronic obstructive pulmonary disease, unspecified; I25.10 Atherosclerotic heart disease of native coronary artery without angina pectoris; E87.6 Hypokalemia; I11.0 Hypertensive heart disease with heart failure; D64.9 Anemia, unspecified; E83.42 Hypomagnesemia; B95.2 Enterococcus as the cause of diseases classified elsewhere; F03.90 Unspecified dementia, unspecified severity, without behavioral disturbance, psychotic disturbance, mood disturbance, and anxiety; F17.210 Nicotine dependence, cigarettes, uncomplicated; Y90.3 Blood alcohol level of 60-79 mg/100 ml; F41.9 Anxiety disorder, unspecified; K21.0 Gastro-esophageal reflux disease with esophagitis; Z95.1 Presence of aortocoronary bypass graft; Z86.73 Personal history of transient ischemic attack (TIA), and cerebral infarction without residual deficits; Z86.718 Personal history of other venous thrombosis and embolism; Z86.711 Personal history of pulmonary embolism; Z59.9 Problem related to housing and economic circumstances, unspecified
CPT/HCPCS: 70450; 71045; 72125; 74176; 80048; 80053; 80170; 81003; 82948; 83605; 83690; 83735; 84100; 84484; 84999; 85025; 85027; 87040; 87077; 87086; 87186; 87493; 87506; 87801; 90837; 93005; 94640; 94640 76; 99202; 99281; 99285; C1753; G0480; J0290; J1580; J1644; J2060; J2405; J3370; J3411; J3475; J3480; J7030; J7050; J7512

== ENCOUNTER 2018-01-21 04:29 | Emergency (ER) | payer OTHER ==
[~2018-01-21] VITALS: Ht 165.1 cm; Wt 72.7 kg
[~2018-01-21 04:29] MED LIST changes: +EFFEXOR75 MG PO; +LOPERAMIDE2 MG PO; +THERA1 EAC2 PO; +ZOFRAN4 MG PO
[2018-01-21] MEDS ORDERED: BUPROPION HCL150 M2 PO (05:04)
[2018-01-21] MEDS ORDERED: ADVAIR HFA120 INHALA IH (05:04)
[2018-01-21] MEDS ORDERED: PROVENTIL HFA6.7 GM IH (05:04)
[2018-01-21] MEDS ORDERED: LISINOPRIL20 MG PO (05:04)
[2018-01-21] MEDS ORDERED: TIMOPTIC-X100 DROP/5 BOTH EYES (05:04)
[2018-01-21] MEDS ORDERED: EFFEXOR75 MG PO (05:04)
[2018-01-21] MEDS ORDERED: APRESOLINE50 MG PO (05:04)
[2018-01-21] MEDS ORDERED: CATAPRES0.3 MG PO (05:04)
[2018-01-21] MEDS ORDERED: PROTONIX40 MG PO (05:04)
[2018-01-21] MEDS ORDERED: DOXEPIN HCL25 MG PO (05:04)
[2018-01-21] MEDS ORDERED: ZOFRAN4 MG PO (05:04)
[2018-01-21] MEDS ORDERED: BUSPAR30 MG PO (05:04)
[2018-01-21 06:57] VITALS: BP 167/114
== END 2018-01-21 07:14 | disposition home or self-care (01) ==
LOC: EME 04:29
DX: F10.239 Alcohol dependence with withdrawal, unspecified (principal); R11.0 Nausea; R25.1 Tremor, unspecified; R00.0 Tachycardia, unspecified; I10 Essential (primary) hypertension; G40.909 Epilepsy, unspecified, not intractable, without status epilepticus; Z91.14 Patient's other noncompliance with medication regimen; J44.9 Chronic obstructive pulmonary disease, unspecified; F03.90 Unspecified dementia, unspecified severity, without behavioral disturbance, psychotic disturbance, mood disturbance, and anxiety; Z86.73 Personal history of transient ischemic attack (TIA), and cerebral infarction without residual deficits; Z86.711 Personal history of pulmonary embolism; Z95.1 Presence of aortocoronary bypass graft; F17.200 Nicotine dependence, unspecified, uncomplicated
CPT/HCPCS: 93005; 99281; 99285

== ENCOUNTER 2018-01-23 10:43 | Emergency (ER) | payer OTHER ==
[~2018-01-23] VITALS: Ht 165.1 cm; Wt 83.1 kg
[~2018-01-23 10:43] MED LIST changes: +PROVENTIL HFA6.7 GM IH; +TIMOPTIC-X100 DROP/5 BOTH EYES
[2018-01-23 11:33] LABS: BASOPHIL (%) 0.5 % (0-1); EOSINOPHIL (%) 1.9 % (0-5); EOSINOPHIL COUNT 0.2 K/uL (0-0.3); HEMATOCRIT 35.3 % (38.0-50.0); HEMOGLOBIN 10.7 G/DL (12.5-16.6); IMMATURE GRANULOCYTE (%) 0.2 % (0.0-0.7); LYMPHOCYTE (%) 23.4 % (15-42); MCH 28.2 PG (29.0-34.0); MCHC 30.3 G/DL (30.0-36.0); MCV 92.9 FL (86-99); MONOCYTE (%) 9.1 % (3-12); MONOCYTE COUNT 0.8 K/uL (0-0.8); NEUTROPHIL (%) 64.9 % (45-76); NEUTROPHIL COUNT 5.4 K/uL (1.8-6.4); RBC DIS.WIDTH-CV 18.6 % (11.8-14.6); RBC DIS.WIDTH-SD 63.6 % (39-53); WHITE BLOOD COUNT 8.4 K/uL (4.1-10.2)
[2018-01-23 11:35] LABS: PLATELET COUNT 213 K/uL (156-360)
[2018-01-23 11:40] LABS: CHLORIDE 113 mEq/L (99-109); POTASSIUM 3.1 mEq/L (3.7-5.4); SODIUM 148 mEq/L (136-147)
[2018-01-23 11:42] LABS: GLUCOSE 103 mg/dL (70-99)
[2018-01-23 11:45] LABS: CREATININE 0.8 mg/dL (0.6-1.3); GFR ESTIMATE (CALCULATED) > 59 mL/min/ (58.99-99999); SERUM ETHYL ALCOHOL 243 mg/dL
[2018-01-23 11:46] LABS: UREA NITROGEN (BUN) 27 mg/dL (9-23)
[2018-01-23 16:00] VITALS: BP 101/71
== END 2018-01-23 16:02 | disposition home or self-care (01) ==
LOC: EME 10:43
PROVIDERS: Emergency Medicine
DX: J44.9 Chronic obstructive pulmonary disease, unspecified (principal); E86.0 Dehydration; F10.20 Alcohol dependence, uncomplicated; Y90.8 Blood alcohol level of 240 mg/100 ml or more; F17.210 Nicotine dependence, cigarettes, uncomplicated; I11.0 Hypertensive heart disease with heart failure; I50.9 Heart failure, unspecified; F03.90 Unspecified dementia, unspecified severity, without behavioral disturbance, psychotic disturbance, mood disturbance, and anxiety; F32.9 Major depressive disorder, single episode, unspecified; K21.9 Gastro-esophageal reflux disease without esophagitis; Z86.73 Personal history of transient ischemic attack (TIA), and cerebral infarction without residual deficits; F41.9 Anxiety disorder, unspecified; Z86.711 Personal history of pulmonary embolism; Z95.1 Presence of aortocoronary bypass graft; Z88.5 Allergy status to narcotic agent
CPT/HCPCS: 71045; 80048; 85025; 99281; 99285; G0480; J7512

== ENCOUNTER 2018-01-24 20:53 | Emergency (ER) | payer OTHER ==
[~2018-01-24] VITALS: Ht 170.2 cm; Wt 82.6 kg
[2018-01-24 23:11] VITALS: BP 165/98
== END 2018-01-24 23:12 | disposition home or self-care (01) ==
LOC: EME 20:53
DX: J44.9 Chronic obstructive pulmonary disease, unspecified (principal); R42 Dizziness and giddiness; F10.239 Alcohol dependence with withdrawal, unspecified; Z86.711 Personal history of pulmonary embolism; Z95.1 Presence of aortocoronary bypass graft; Z86.73 Personal history of transient ischemic attack (TIA), and cerebral infarction without residual deficits; F17.200 Nicotine dependence, unspecified, uncomplicated
CPT/HCPCS: 94640; 99281; 99284; J1100

== ENCOUNTER 2018-01-29 09:04 | Emergency (ER) | payer OTHER ==
[~2018-01-29] VITALS: Ht 165.1 cm; Wt 83.3 kg
[2018-01-29 11:19] LABS: ALBUMIN 3.4 g/dL (3.2-4.8); CHLORIDE 114 mEq/L (99-109); MAGNESIUM 1.9 mg/dL (1.3-2.7); SODIUM 147 mEq/L (136-147)
[2018-01-29 11:20] LABS: POTASSIUM 4.3 mEq/L (3.7-5.4)
[2018-01-29 11:21] LABS: BASOPHIL (%) 0.5 % (0-1); EOSINOPHIL (%) 1.8 % (0-5); EOSINOPHIL COUNT 0.1 K/uL (0-0.3); GLUCOSE 105 mg/dL (70-99); HEMATOCRIT 32.5 % (38.0-50.0); IMMATURE GRANULOCYTE (%) 0.2 % (0.0-0.7); LYMPHOCYTE (%) 17.4 % (15-42); MCH 28.2 PG (29.0-34.0); MCHC 30.8 G/DL (30.0-36.0); MCV 91.8 FL (86-99); MONOCYTE (%) 8.4 % (3-12); MONOCYTE COUNT 0.5 K/uL (0-0.8); NEUTROPHIL (%) 71.7 % (45-76); NEUTROPHIL COUNT 4.3 K/uL (1.8-6.4); RBC DIS.WIDTH-CV 18.6 % (11.8-14.6); RBC DIS.WIDTH-SD 63.9 % (39-53); RED BLOOD COUNT 3.54 M/uL (4.00-5.50)
[2018-01-29 11:22] LABS: TOTAL PROTEIN 5.1 g/dL (6.4-8.3)
[2018-01-29 11:23] LABS: TOTAL BILIRUBIN 0.6 mg/dL (0.0-1.0)
[2018-01-29 11:25] LABS: ALKALINE PHOSPHATASE 77 IU/L (3-129); CREATININE 1.2 mg/dL (0.6-1.3); GFR ESTIMATE (CALCULATED) > 59 mL/min/ (58.99-99999); PLATELET COUNT 303 K/uL (156-360)
[2018-01-29 11:26] LABS: UREA NITROGEN (BUN) 26 mg/dL (9-23)
[2018-01-29 11:27] LABS: AST (GOT) 16 IU/L (2-34)
[2018-01-29 11:28] LABS: ALT (GPT) 14 IU/L (3-49)
[2018-01-29 11:31] LABS: TROP-I INTERPRETATION NEGATIVE; TROPONIN-I < 0.01 ng/mL (0.0-0.30)
[2018-01-29] MEDS ORDERED: HALCION0.25 MG PO (15:28)
[2018-01-29 15:54] VITALS: BP 146/102
== END 2018-01-29 15:45 | disposition home or self-care (01) ==
LOC: EME 09:04 → CANRESERV 13:02 → ENRESERV 13:02 → EME 15:45
PROVIDERS: Family Medicine
PROC: 05HM33Z Insertion of Infusion Device into Right Internal Jugular Vein, Percutaneous Approach (ICD-10-PCS; principal; 2018-01-29)
DX: I95.9 Hypotension, unspecified (principal); J44.9 Chronic obstructive pulmonary disease, unspecified; I10 Essential (primary) hypertension; K21.9 Gastro-esophageal reflux disease without esophagitis; R56.9 Unspecified convulsions; F41.9 Anxiety disorder, unspecified; F32.9 Major depressive disorder, single episode, unspecified; F03.90 Unspecified dementia, unspecified severity, without behavioral disturbance, psychotic disturbance, mood disturbance, and anxiety; F31.9 Bipolar disorder, unspecified; F17.200 Nicotine dependence, unspecified, uncomplicated; Z79.51 Long term (current) use of inhaled steroids; Z86.73 Personal history of transient ischemic attack (TIA), and cerebral infarction without residual deficits; Z86.711 Personal history of pulmonary embolism; Z95.1 Presence of aortocoronary bypass graft; Z88.5 Allergy status to narcotic agent; Z91.013 Allergy to seafood
CPT/HCPCS: 71045; 80053; 82948; 83605; 83735; 84100; 84484; 85025; 87040; 93005; 99281; 99285; C1751; J2060; J7040

== ENCOUNTER 2018-01-30 13:35 | Emergency (ER) | payer OTHER ==
[~2018-01-30] VITALS: Ht 175.3 cm; Wt 66.4 kg
[2018-01-30 14:43] LABS: HEMATOCRIT 34.1 % (38.0-50.0); MCH 28.6 PG (29.0-34.0); MCHC 32.3 G/DL (30.0-36.0); MCV 88.8 FL (86-99); RBC DIS.WIDTH-CV 18.6 % (11.8-14.6); RBC DIS.WIDTH-SD 60.7 % (39-53); RED BLOOD COUNT 3.84 M/uL (4.00-5.50); WHITE BLOOD COUNT 6.6 K/uL (4.1-10.2)
[2018-01-30 14:50] LABS: ALBUMIN 3.8 g/dL (3.2-4.8); CHLORIDE 106 mEq/L (99-109); SODIUM 141 mEq/L (136-147)
[2018-01-30 14:52] LABS: GLUCOSE 95 mg/dL (70-99)
[2018-01-30 14:53] LABS: TOTAL PROTEIN 5.9 g/dL (6.4-8.3)
[2018-01-30 14:55] LABS: SERUM ETHYL ALCOHOL 302 mg/dL
[2018-01-30 14:56] LABS: CREATININE 0.9 mg/dL (0.6-1.3); GFR ESTIMATE (CALCULATED) > 59 mL/min/ (58.99-99999)
[2018-01-30 14:57] LABS: ALKALINE PHOSPHATASE 89 IU/L (3-129)
[2018-01-30 14:58] LABS: AST (GOT) 19 IU/L (2-34); UREA NITROGEN (BUN) 18 mg/dL (9-23)
[2018-01-30 14:59] LABS: SALICYLATE < 5.0 MG/DL (15-30)
[2018-01-30 15:00] LABS: ACETAMINOPHEN (TYLENOL) < 10 mcg/mL (10-30); ALT (GPT) 14 IU/L (3-49)
[2018-01-30 15:01] LABS: LIPASE 43 U/L (1.0-51.0)
[2018-01-30 16:53] LABS: PLATELET COUNT UNABLE TO REPORT K/uL (156-360)
[2018-01-30 17:45] VITALS: BP 106/66
[2018-01-30 18:09] LABS: AMPHETAMINE NEGATIVE (500 ng/mL); BARBITURATES NEGATIVE (200 ng/mL); BENZODIAZEPINES PRESUMPTIVE POSITIVE (150 ng/mL); BUPRENORPHINE NEGATIVE (10 ng/mL); COCAINE NEGATIVE (150 ng/mL); METHADONE NEGATIVE (200 ng/mL); METHAMPHETAMINE NEGATIVE (500 ng/mL); OPIATES (MORPHINE) NEGATIVE (100 ng/mL); OXYCODONE NEGATIVE (100 ng/mL); PHENCYCLIDINE NEGATIVE (25 ng/mL); PROPOXYPHENE NEGATIVE (300 ng/mL); THC CANNABINOIDS NEGATIVE (50 ng/mL); TRICYCLIC ANTIDEPRESSANTS NEGATIVE (300 ng/mL)
[2018-01-30 18:40] LABS: BENZODIAZEPINES, URINE SCREEN POSITIVE (200 ng/mL)
== END 2018-01-30 18:39 | disposition home or self-care (01) ==
LOC: EME 13:35
PROVIDERS: Emergency Medicine Emergency Medical Services
DX: F10.129 Alcohol abuse with intoxication, unspecified (principal); Y90.8 Blood alcohol level of 240 mg/100 ml or more; I10 Essential (primary) hypertension; I50.9 Heart failure, unspecified; J44.9 Chronic obstructive pulmonary disease, unspecified; K21.9 Gastro-esophageal reflux disease without esophagitis; F41.9 Anxiety disorder, unspecified; F31.9 Bipolar disorder, unspecified; F32.9 Major depressive disorder, single episode, unspecified; R56.9 Unspecified convulsions; F03.90 Unspecified dementia, unspecified severity, without behavioral disturbance, psychotic disturbance, mood disturbance, and anxiety; F17.200 Nicotine dependence, unspecified, uncomplicated; Z95.1 Presence of aortocoronary bypass graft; Z86.73 Personal history of transient ischemic attack (TIA), and cerebral infarction without residual deficits; Z86.711 Personal history of pulmonary embolism; Z91.013 Allergy to seafood; Z88.5 Allergy status to narcotic agent
CPT/HCPCS: 70450; 71045; 80053; 83690; 84999; 85027; 99281; 99285; G0480

== ENCOUNTER 2018-01-31 17:26 | Observation (INO) | payer OTHER ==
[~2018-01-31] VITALS: Ht 165.1 cm; Wt 81.7 kg
[2018-01-31 18:00] LABS: HEMATOCRIT 38.6 % (38.0-50.0); HEMOGLOBIN 12.3 G/DL (12.5-16.6); MCH 28.8 PG (29.0-34.0); MCHC 31.9 G/DL (30.0-36.0); MCV 90.4 FL (86-99); PLATELET COUNT 354 K/uL (156-360); RED BLOOD COUNT 4.27 M/uL (4.00-5.50); WHITE BLOOD COUNT 8.6 K/uL (4.1-10.2)
[2018-01-31 18:09] LABS: ALBUMIN 3.8 g/dL (3.2-4.8); CHLORIDE 112 mEq/L (99-109); POTASSIUM 4.5 mEq/L (3.7-5.4); SODIUM 146 mEq/L (136-147)
[2018-01-31 18:12] LABS: TOTAL PROTEIN 6.1 g/dL (6.4-8.3)
[2018-01-31 18:13] LABS: GLUCOSE 61 mg/dL (70-99)
[2018-01-31 18:14] LABS: SERUM ETHYL ALCOHOL 384 mg/dL; TOTAL BILIRUBIN 0.6 mg/dL (0.0-1.0)
[2018-01-31 18:15] LABS: ALKALINE PHOSPHATASE 88 IU/L (3-129); CREATININE 0.9 mg/dL (0.6-1.3); GFR ESTIMATE (CALCULATED) > 59 mL/min/ (58.99-99999)
[2018-01-31 18:16] LABS: UREA NITROGEN (BUN) 20 mg/dL (9-23)
[2018-01-31 18:17] LABS: AST (GOT) 22 IU/L (2-34)
[2018-01-31 18:18] LABS: ALT (GPT) 17 IU/L (3-49); LIPASE 266 U/L (1.0-51.0)
[2018-01-31 18:24] LABS: TROP-I INTERPRETATION NEGATIVE; TROPONIN-I 0.06 ng/mL (0.0-0.30)
[2018-02-01 08:23] VITALS: BP 205/115
[2018-02-01 09:00] VITALS: BP 215/136
[2018-02-01 10:38] VITALS: BP 212/117
[2018-02-01] MEDS ORDERED: TIMOPTIC-0100 DROP/5 RIGHT EYE (12:09)
[2018-02-01] MEDS ORDERED: SINEQUAN100 MG PO (12:11)
[2018-02-01] MEDS ORDERED: SINEQUAN25 MG PO (12:11)
[2018-02-01 13:21] LABS: APPEARANCE CLEAR ((CLEAR)); BILIRUBIN NEGATIVE; BLOOD SMALL; COLOR COLORLESS ((YELLOW)); GLUCOSE (STRIP) 50; KETONES NEGATIVE; LEUKOCYTES NEGATIVE; NITRITE NEGATIVE; PROTEIN (STRIP) NEGATIVE; SPECIFIC GRAVITY 1.005 (1.000-1.030); UROBILINOGEN 0.2 MG/DL (0.2-1.0)
[2018-02-01 13:35] LABS: BACTERIA NONE SEEN /HPF; EPITHELIAL CELLS NONE SEEN /HPF; HYALINE CASTS 0-5 /LPF; MUCUS TRACE /LPF; RED BLOOD CELLS 0-5 /HPF (0-5); WHITE BLOOD CELLS 0-5 /HPF (0-5)
[2018-02-01 17:07] VITALS: BP 190/105
[2018-02-01 19:00] VITALS: BP 180/98
[2018-02-01 23:54] VITALS: BP 136/92
[2018-02-02 04:00] VITALS: BP 148/100
[2018-02-02 07:38] VITALS: BP 175/109
[2018-02-02 10:53] LABS: HEMATOCRIT 32.7 % (38.0-50.0); MCH 27.4 PG (29.0-34.0); MCHC 30.9 G/DL (30.0-36.0); MCV 88.9 FL (86-99); PLATELET COUNT 270 K/uL (156-360); RBC DIS.WIDTH-CV 18.3 % (11.8-14.6); RBC DIS.WIDTH-SD 59.6 % (39-53); RED BLOOD COUNT 3.68 M/uL (4.00-5.50); WHITE BLOOD COUNT 5.9 K/uL (4.1-10.2)
[2018-02-02 10:56] LABS: HEMOGLOBIN 10.1 G/DL (12.5-16.6)
[2018-02-02 11:29] LABS: CHLORIDE 105 MEQ/L (99-109); POTASSIUM 3.6 MEQ/L (3.7-5.4); SODIUM 139 MEQ/L (136-147)
[2018-02-02 11:35] LABS: CREATININE 1.1 MG/DL (0.6-1.3); GFR ESTIMATE (CALCULATED) > 59 mL/min/ (58.99-99999); UREA NITROGEN (BUN) 25 mg/dL (9-23)
[2018-02-02 11:38] LABS: GLUCOSE 217 mg/dL (70-99)
[2018-02-02 12:12] VITALS: BP 184/102
[2018-02-02 14:22] VITALS: BP 154/92
[2018-02-02 16:06] VITALS: BP 177/110
[2018-02-02 19:20] VITALS: BP 170/106
[2018-02-03 00:03] VITALS: BP 155/92
[2018-02-03 03:27] VITALS: BP 140/87
[2018-02-03 06:32] LABS: HEMATOCRIT 33.8 % (38.0-50.0); HEMOGLOBIN 10.4 G/DL (12.5-16.6); MCH 27.2 PG (29.0-34.0); MCHC 30.8 G/DL (30.0-36.0); MCV 88.5 FL (86-99); PLATELET COUNT 281 K/uL (156-360); RBC DIS.WIDTH-CV 18.3 % (11.8-14.6); RBC DIS.WIDTH-SD 59.9 % (39-53); RED BLOOD COUNT 3.82 M/uL (4.00-5.50); WHITE BLOOD COUNT 5.3 K/uL (4.1-10.2)
[2018-02-03 06:59] LABS: CHLORIDE 107 MEQ/L (99-109); CREATININE 1.1 MG/DL (0.6-1.3); GFR ESTIMATE (CALCULATED) > 59 mL/min/ (58.99-99999); POTASSIUM 3.6 MEQ/L (3.7-5.4); UREA NITROGEN (BUN) 25 mg/dL (9-23)
[2018-02-03 07:01] LABS: GLUCOSE 114 mg/dL (70-99); SODIUM 146 MEQ/L (136-147)
[2018-02-03 08:44] LABS: MAGNESIUM 1.9 mg/dl (1.3-2.7)
[2018-02-03 09:00] VITALS: BP 178/110
[2018-02-03] MEDS ORDERED: LOPRESSOR25 MG PO (10:51)
[2018-02-03 11:06] VITALS: BP 175/90
[2018-02-03 12:26] LABS: C DIFF TOXIN NEGATIVE (NEGATIVE)
== END 2018-02-03 13:17 | disposition home or self-care (01) ==
LOC: EME 17:26 → EDOF 02-01 06:44 → ENRESERV 02-01 06:46 → EDOF 02-01 07:10 → 5WEST 02-01 07:49 → ENPENDDIS 02-03 11:21 → 5WEST 02-03 13:17
PROVIDERS: Emergency Medicine Emergency Medical Services; Family Medicine; Physician Assistant
DX: F10.229 Alcohol dependence with intoxication, unspecified (principal); F10.239 Alcohol dependence with withdrawal, unspecified; Y90.8 Blood alcohol level of 240 mg/100 ml or more; I95.9 Hypotension, unspecified; I10 Essential (primary) hypertension; Z91.19 Patient's noncompliance with other medical treatment and regimen; E86.0 Dehydration; E16.2 Hypoglycemia, unspecified; E46 Unspecified protein-calorie malnutrition; Z86.711 Personal history of pulmonary embolism; Z86.718 Personal history of other venous thrombosis and embolism; J44.9 Chronic obstructive pulmonary disease, unspecified; Z87.19 Personal history of other diseases of the digestive system; I25.10 Atherosclerotic heart disease of native coronary artery without angina pectoris; F41.9 Anxiety disorder, unspecified; I25.2 Old myocardial infarction; G62.9 Polyneuropathy, unspecified; R56.9 Unspecified convulsions; F31.9 Bipolar disorder, unspecified; F17.200 Nicotine dependence, unspecified, uncomplicated; Z88.5 Allergy status to narcotic agent; Z91.013 Allergy to seafood; K85.90 Acute pancreatitis without necrosis or infection, unspecified; Z86.73 Personal history of transient ischemic attack (TIA), and cerebral infarction without residual deficits; Z95.1 Presence of aortocoronary bypass graft
CPT/HCPCS: 80048; 80053; 81003; 82948; 83690; 83735; 84484; 85027; 87493; 93005; 94640; 94640 76; 99281; 99285; G0378; G0480; J1630; J1644; J1885; J2060; J3411; J3475; J7030; J7040; J7042; J7050

== ENCOUNTER 2018-02-05 09:30 | Emergency (ER) | payer OTHER ==
[~2018-02-05] VITALS: Ht 165.1 cm; Wt 81.2 kg
[2018-02-05 10:12] LABS: HEMATOCRIT 33.2 % (38.0-50.0); HEMOGLOBIN 10.5 G/DL (12.5-16.6); MCH 28.7 PG (29.0-34.0); MCHC 31.6 G/DL (30.0-36.0); MCV 90.7 FL (86-99); PLATELET COUNT 283 K/uL (156-360); RBC DIS.WIDTH-CV 19.7 % (11.8-14.6); RBC DIS.WIDTH-SD 65.6 % (39-53); RED BLOOD COUNT 3.66 M/uL (4.00-5.50)
[2018-02-05 10:20] LABS: ALBUMIN 3.7 g/dL (3.2-4.8); CHLORIDE 111 mEq/L (99-109); POTASSIUM 3.8 mEq/L (3.7-5.4); SODIUM 144 mEq/L (136-147)
[2018-02-05 10:23] LABS: GLUCOSE 88 mg/dL (70-99); TOTAL PROTEIN 6.1 g/dL (6.4-8.3)
[2018-02-05 10:24] LABS: TOTAL BILIRUBIN 0.5 mg/dL (0.0-1.0)
[2018-02-05 10:25] LABS: SERUM ETHYL ALCOHOL < 10 mg/dL
[2018-02-05 10:26] LABS: ALKALINE PHOSPHATASE 83 IU/L (3-129); GFR ESTIMATE (CALCULATED) > 59 mL/min/ (58.99-99999)
[2018-02-05 10:27] LABS: UREA NITROGEN (BUN) 25 mg/dL (9-23)
[2018-02-05 10:28] LABS: AST (GOT) 16 IU/L (2-34)
[2018-02-05 10:29] LABS: ALT (GPT) 15 IU/L (3-49)
[2018-02-05 16:08] VITALS: BP 147/100
== END 2018-02-05 16:08 | disposition left against medical advice (07) ==
LOC: EME 09:30
PROVIDERS: Emergency Medicine
DX: F10.239 Alcohol dependence with withdrawal, unspecified (principal); R79.1 Abnormal coagulation profile; R06.00 Dyspnea, unspecified; R00.2 Palpitations; R00.0 Tachycardia, unspecified; J44.9 Chronic obstructive pulmonary disease, unspecified; I10 Essential (primary) hypertension; Z86.711 Personal history of pulmonary embolism; Z86.73 Personal history of transient ischemic attack (TIA), and cerebral infarction without residual deficits; Z95.1 Presence of aortocoronary bypass graft; F17.210 Nicotine dependence, cigarettes, uncomplicated
CPT/HCPCS: 71045; 80053; 85027; 85379; 99281; 99285; G0480

== ENCOUNTER 2018-02-05 22:11 | Emergency (ER) | payer OTHER ==
[~2018-02-05] VITALS: Ht 162.6 cm; Wt 67.0 kg
[2018-02-06 00:05] VITALS: BP 104/76
== END 2018-02-06 00:34 | disposition home or self-care (01) ==
LOC: EME 22:11
DX: S60.811A Abrasion of right wrist, initial encounter (principal); S60.211A Contusion of right wrist, initial encounter; F10.129 Alcohol abuse with intoxication, unspecified; W18.30XA Fall on same level, unspecified, initial encounter; Y90.9 Presence of alcohol in blood, level not specified; Z88.5 Allergy status to narcotic agent
CPT/HCPCS: 70450; 73110; 99281; 99283

== ENCOUNTER 2018-02-06 19:25 | Emergency (ER) | payer OTHER ==
[~2018-02-06] VITALS: Ht 167.6 cm; Wt 74.5 kg
[2018-02-06 22:30] VITALS: BP 140/102
== END 2018-02-06 22:31 | disposition home or self-care (01) ==
LOC: EME 19:25
DX: F10.129 Alcohol abuse with intoxication, unspecified (principal); Z88.5 Allergy status to narcotic agent
CPT/HCPCS: 99281; 99283; G0480

== ENCOUNTER 2018-02-09 04:36 | Inpatient (IN) | payer OTHER ==
[~2018-02-09] VITALS: Ht 165.1 cm; Wt 77.8 kg
[2018-02-09 06:09] LABS: HEMATOCRIT 33.6 % (38.0-50.0); HEMOGLOBIN 10.7 G/DL (12.5-16.6); MCH 28.7 PG (29.0-34.0); MCHC 31.8 G/DL (30.0-36.0); MCV 90.1 FL (86-99); PLATELET COUNT 343 K/uL (156-360); RBC DIS.WIDTH-CV 19.8 % (11.8-14.6); RBC DIS.WIDTH-SD 66.2 % (39-53); RED BLOOD COUNT 3.73 M/uL (4.00-5.50); WHITE BLOOD COUNT 10.8 K/uL (4.1-10.2)
[2018-02-09 06:21] LABS: TROP-I INTERPRETATION NEGATIVE; TROPONIN-I 0.03 ng/mL (0.0-0.30)
[2018-02-09 06:26] LABS: ALBUMIN 4.3 g/dL (3.2-4.8); CHLORIDE 100 mEq/L (99-109); POTASSIUM 4.1 mEq/L (3.7-5.4); SODIUM 143 mEq/L (136-147)
[2018-02-09 06:28] LABS: GLUCOSE 100 mg/dL (70-99); TOTAL PROTEIN 6.7 g/dL (6.4-8.3)
[2018-02-09 06:32] LABS: ALKALINE PHOSPHATASE 94 IU/L (3-129); CREATININE 0.9 mg/dL (0.6-1.3); GFR ESTIMATE (CALCULATED) > 59 mL/min/ (58.99-99999); TOTAL BILIRUBIN 0.7 mg/dL (0.0-1.0)
[2018-02-09 06:33] LABS: UREA NITROGEN (BUN) 23 mg/dL (9-23)
[2018-02-09 06:35] LABS: ALT (GPT) 24 IU/L (3-49); LIPASE 28 U/L (1.0-51.0)
[2018-02-09 06:37] LABS: AST (GOT) 42 IU/L (2-34)
[2018-02-09 07:37] LABS: SERUM ETHYL ALCOHOL 174 mg/dL
[2018-02-09 09:50] LABS: MAGNESIUM 1.7 mg/dl (1.3-2.7)
[2018-02-09] MEDS ORDERED: BUPROPION HCL150 M2 PO (12:40)
[2018-02-09 13:46] VITALS: BP 163/93
[2018-02-09 16:21] VITALS: BP 158/79
[2018-02-09 21:00] VITALS: BP 132/78
[2018-02-10 00:11] VITALS: BP 90/66
[2018-02-10 04:30] VITALS: BP 101/66
[2018-02-10 05:59] LABS: HEMATOCRIT 29.5 % (38.0-50.0); HEMOGLOBIN 9.1 G/DL (12.5-16.6); MCH 28.2 PG (29.0-34.0); MCHC 30.8 G/DL (30.0-36.0); MCV 91.3 FL (86-99); RBC DIS.WIDTH-CV 19.9 % (11.8-14.6); RBC DIS.WIDTH-SD 66.8 % (39-53); RED BLOOD COUNT 3.23 M/uL (4.00-5.50); WHITE BLOOD COUNT 6.7 K/uL (4.1-10.2)
[2018-02-10 06:34] LABS: PLAT.SUFFICIENCY ADEQUATE
[2018-02-10 06:39] LABS: ALBUMIN 3.1 G/DL (3.2-4.8); ALKALINE PHOSPHATASE 58 IU/L (3-129); ALT (GPT) 13 IU/L (3-49); AST (GOT) 28 IU/L (2-34); CHLORIDE 106 MEQ/L (99-109); CREATININE 1.1 MG/DL (0.6-1.3); GFR ESTIMATE (CALCULATED) > 59 mL/min/ (58.99-99999); GLUCOSE 110 mg/dL (70-99); POTASSIUM 3.4 MEQ/L (3.7-5.4); SODIUM 141 MEQ/L (136-147); TOTAL BILIRUBIN 1.2 MG/DL (0.0-1.0); TOTAL PROTEIN 5.2 G/DL (6.4-8.3); UREA NITROGEN (BUN) 21 mg/dL (9-23)
[2018-02-10 06:50] LABS: PLATELET COUNT 227 K/uL (156-360)
[2018-02-10 07:42] VITALS: BP 138/78
[2018-02-10 09:11] LABS: MAGNESIUM 1.8 mg/dl (1.3-2.7); PHOSPHORUS 2.2 mg/dL (2.5-4.9)
[2018-02-10 11:39] VITALS: BP 91/52
[2018-02-10 15:22] VITALS: BP 107/66
[2018-02-10 20:45] VITALS: BP 138/82
[2018-02-11] VITALS (7 sets, daily range): BP systolic 112–164; BP diastolic 65–88
[2018-02-11 05:59] LABS: BASOPHIL (%) 0.5 % (0-1); EOSINOPHIL (%) 2.8 % (0-5); EOSINOPHIL COUNT 0.1 K/uL (0-0.3); HEMATOCRIT 28.2 % (38.0-50.0); HEMOGLOBIN 8.7 G/DL (12.5-16.6); IMMATURE GRANULOCYTE (%) 0.3 % (0.0-0.7); LYMPHOCYTE (%) 32.7 % (15-42); LYMPHOCYTE COUNT 1.3 K/uL (1.0-2.8); MCH 28.4 PG (29.0-34.0); MCHC 30.9 G/DL (30.0-36.0); MCV 92.2 FL (86-99); MONOCYTE COUNT 0.6 K/uL (0-0.8); NEUTROPHIL (%) 47.7 % (45-76); NEUTROPHIL COUNT 1.9 K/uL (1.8-6.4); PLATELET COUNT 220 K/uL (156-360); RBC DIS.WIDTH-CV 19.7 % (11.8-14.6); RBC DIS.WIDTH-SD 66.3 % (39-53); RED BLOOD COUNT 3.06 M/uL (4.00-5.50); WHITE BLOOD COUNT 3.9 K/uL (4.1-10.2)
[2018-02-11 06:10] LABS: CHLORIDE 104 MEQ/L (99-109); CREATININE 1.1 MG/DL (0.6-1.3); GFR ESTIMATE (CALCULATED) > 59 mL/min/ (58.99-99999); GLUCOSE 101 mg/dL (70-99); POTASSIUM 3.7 MEQ/L (3.7-5.4); SODIUM 140 MEQ/L (136-147); UREA NITROGEN (BUN) 23 mg/dL (9-23)
[2018-02-12 04:13] VITALS: BP 141/93
[2018-02-12 05:36] LABS: HEMATOCRIT 30.1 % (38.0-50.0); HEMOGLOBIN 9.3 G/DL (12.5-16.6); MCH 27.8 PG (29.0-34.0); MCHC 30.9 G/DL (30.0-36.0); MCV 90.1 FL (86-99); PLATELET COUNT 253 K/uL (156-360); RBC DIS.WIDTH-CV 19.3 % (11.8-14.6); RBC DIS.WIDTH-SD 63.7 % (39-53); RED BLOOD COUNT 3.34 M/uL (4.00-5.50); WHITE BLOOD COUNT 4.2 K/uL (4.1-10.2)
[2018-02-12 05:48] LABS: CHLORIDE 105 MEQ/L (99-109); CREATININE 0.8 MG/DL (0.6-1.3); GFR ESTIMATE (CALCULATED) > 59 mL/min/ (58.99-99999); GLUCOSE 88 mg/dL (70-99); POTASSIUM 3.6 MEQ/L (3.7-5.4); SODIUM 141 MEQ/L (136-147); UREA NITROGEN (BUN) 14 mg/dL (9-23)
[2018-02-12 05:50] LABS: MAGNESIUM 1.4 mg/dl (1.3-2.7)
[2018-02-12 07:44] VITALS: BP 188/110
[2018-02-12 10:00] VITALS: BP 140/84
[2018-02-12 10:27] VITALS: BP 140/84
[2018-02-12 12:51] VITALS: BP 179/108
[2018-02-12] MEDS ORDERED: PANTOPRAZOLE SO40 MG PO (12:57)
[2018-02-12 13:02] VITALS: BP 161/94
== END 2018-02-12 14:07 | disposition home or self-care (01) | DRG 292 ==
LOC: EME → EDBD 04:36 → EDOF 08:20 → 3EAST 08:20 → ENRESERV 08:22 → EDOF 08:43 → ENRESERV 08:43 → 3EAST 13:22
PROVIDERS: Emergency Medicine; Internal Medicine
DX: I11.0 Hypertensive heart disease with heart failure (principal); R09.02 Hypoxemia; K29.20 Alcoholic gastritis without bleeding; R13.10 Dysphagia, unspecified; I50.9 Heart failure, unspecified; E83.39 Other disorders of phosphorus metabolism; E87.6 Hypokalemia; G89.29 Other chronic pain; Z79.899 Other long term (current) drug therapy; Y90.6 Blood alcohol level of 120-199 mg/100 ml; J44.9 Chronic obstructive pulmonary disease, unspecified; Z86.718 Personal history of other venous thrombosis and embolism; Z86.711 Personal history of pulmonary embolism; Z81.1 Family history of alcohol abuse and dependence; Z95.1 Presence of aortocoronary bypass graft; F17.200 Nicotine dependence, unspecified, uncomplicated; F10.221 Alcohol dependence with intoxication delirium; R11.2 Nausea with vomiting, unspecified
CPT/HCPCS: 71045; 80048; 80053; 83690; 83735; 84100; 84484; 85025; 85027; 93005; 94640; 94640 76; 94760; 94799; 99202; 99281; 99283; 99285; G0480; J0360; J1650; J2060; J2405; J7030

== ENCOUNTER 2018-02-16 01:30 | Emergency (ER) | payer OTHER ==
[~2018-02-16] VITALS: Ht 172.7 cm; Wt 79.7 kg
[2018-02-16 02:30] LABS: HEMATOCRIT 32.1 % (38.0-50.0); HEMOGLOBIN 10.2 G/DL (12.5-16.6); MCH 29.1 PG (29.0-34.0); MCHC 31.8 G/DL (30.0-36.0); MCV 91.7 FL (86-99); RBC DIS.WIDTH-CV 21.4 % (11.8-14.6); RBC DIS.WIDTH-SD 72.1 % (39-53); WHITE BLOOD COUNT 9.6 K/uL (4.1-10.2)
[2018-02-16 02:34] LABS: PLATELET COUNT 368 K/uL (156-360)
[2018-02-16 02:38] LABS: POTASSIUM 3.9 mEq/L (3.7-5.4); SODIUM 148 mEq/L (136-147)
[2018-02-16 02:39] LABS: CHLORIDE 111 mEq/L (99-109)
[2018-02-16 02:41] LABS: GLUCOSE 157 mg/dL (70-99); TOTAL PROTEIN 6.3 g/dL (6.4-8.3)
[2018-02-16 02:43] LABS: SERUM ETHYL ALCOHOL 253 mg/dL
[2018-02-16 02:44] LABS: ALKALINE PHOSPHATASE 81 IU/L (3-129); CREATININE 1.1 mg/dL (0.6-1.3); GFR ESTIMATE (CALCULATED) > 59 mL/min/ (58.99-99999)
[2018-02-16 02:45] LABS: TOTAL BILIRUBIN 0.2 mg/dL (0.0-1.0)
[2018-02-16 02:46] LABS: AST (GOT) 44 IU/L (2-34)
[2018-02-16 02:47] LABS: ALT (GPT) 44 IU/L (3-49); UREA NITROGEN (BUN) 28 mg/dL (9-23)
[2018-02-16 02:48] LABS: LIPASE 54 U/L (1.0-51.0)
[2018-02-16 02:53] LABS: TROP-I INTERPRETATION NEGATIVE; TROPONIN-I 0.03 ng/mL (0.0-0.30)
[2018-02-16 05:36] LABS: TROP-I INTERPRETATION NEGATIVE; TROPONIN-I 0.03 ng/mL (0.0-0.30)
[2018-02-16 07:51] VITALS: BP 156/100
[2018-02-17] MEDS ORDERED: ATIVAN2 MG PO (14:52)
== END 2018-02-16 07:51 | disposition home or self-care (01) ==
LOC: EME → EDBD 01:30 → EME 07:51
PROVIDERS: Emergency Medicine
DX: R07.9 Chest pain, unspecified (principal); K21.9 Gastro-esophageal reflux disease without esophagitis; J44.9 Chronic obstructive pulmonary disease, unspecified; I10 Essential (primary) hypertension; F03.90 Unspecified dementia, unspecified severity, without behavioral disturbance, psychotic disturbance, mood disturbance, and anxiety; F31.9 Bipolar disorder, unspecified; F32.9 Major depressive disorder, single episode, unspecified; F41.9 Anxiety disorder, unspecified; F17.200 Nicotine dependence, unspecified, uncomplicated; Z95.1 Presence of aortocoronary bypass graft; Z86.73 Personal history of transient ischemic attack (TIA), and cerebral infarction without residual deficits; Z88.5 Allergy status to narcotic agent
CPT/HCPCS: 71045; 80053; 83690; 84484; 85027; 93005; 94640; 99281; 99284; G0480

== ENCOUNTER 2018-02-17 08:58 | Emergency (ER) | payer OTHER ==
[~2018-02-17] VITALS: Ht 165.1 cm; Wt 80.6 kg
[2018-02-17 09:33] LABS: HEMATOCRIT 32.2 % (38.0-50.0); HEMOGLOBIN 10.2 G/DL (12.5-16.6); MCHC 31.7 G/DL (30.0-36.0); MCV 91.5 FL (86-99); PLATELET COUNT 352 K/uL (156-360); RBC DIS.WIDTH-SD 70.5 % (39-53); RED BLOOD COUNT 3.52 M/uL (4.00-5.50); WHITE BLOOD COUNT 8.2 K/uL (4.1-10.2)
[2018-02-17 09:42] LABS: CHLORIDE 107 mEq/L (99-109); POTASSIUM 3.8 mEq/L (3.7-5.4); SODIUM 145 mEq/L (136-147)
[2018-02-17 09:44] LABS: GLUCOSE 120 mg/dL (70-99); TOTAL PROTEIN 6.4 g/dL (6.4-8.3)
[2018-02-17 09:49] LABS: ALKALINE PHOSPHATASE 82 IU/L (3-129); AST (GOT) 30 IU/L (2-34); CREATININE 0.8 mg/dL (0.6-1.3); GFR ESTIMATE (CALCULATED) > 59 mL/min/ (58.99-99999); UREA NITROGEN (BUN) 20 mg/dL (9-23)
[2018-02-17 09:50] LABS: ALT (GPT) 34 IU/L (3-49)
[2018-02-17 09:51] LABS: LIPASE 34 U/L (1.0-51.0)
[2018-02-17 10:00] LABS: MAGNESIUM 1.7 mg/dL (1.3-2.7)
[2018-02-17 10:04] LABS: SERUM ETHYL ALCOHOL < 10 mg/dL
[2018-02-17] MEDS ORDERED: ATIVAN2 MG PO (14:52)
[2018-02-17 15:20] VITALS: BP 181/123
== END 2018-02-17 15:22 | disposition home or self-care (01) ==
LOC: EME 08:58
PROVIDERS: Emergency Medicine
DX: F10.239 Alcohol dependence with withdrawal, unspecified (principal); Y90.0 Blood alcohol level of less than 20 mg/100 ml; J44.9 Chronic obstructive pulmonary disease, unspecified; K21.9 Gastro-esophageal reflux disease without esophagitis; I11.0 Hypertensive heart disease with heart failure; I50.9 Heart failure, unspecified; F03.90 Unspecified dementia, unspecified severity, without behavioral disturbance, psychotic disturbance, mood disturbance, and anxiety; F17.200 Nicotine dependence, unspecified, uncomplicated; F32.9 Major depressive disorder, single episode, unspecified; Z86.73 Personal history of transient ischemic attack (TIA), and cerebral infarction without residual deficits; F41.9 Anxiety disorder, unspecified; Z88.5 Allergy status to narcotic agent; Z95.1 Presence of aortocoronary bypass graft
CPT/HCPCS: 80053; 83690; 83735; 85027; 99281; 99285; G0480; J2060; J2405; J7030

== ENCOUNTER 2018-02-18 20:28 | Emergency (ER) | payer OTHER ==
[~2018-02-18] VITALS: Ht 165.1 cm; Wt 80.6 kg
[2018-02-19 00:08] VITALS: BP 169/90
[2018-02-19] MEDS ORDERED: LEVAQUIN750 MG PO (16:15)
[2018-02-20] MEDS ORDERED: LIBRIUM25 MG PO (05:23)
[2018-02-20] MEDS ORDERED: ZOFRAN ODT4 MG PO (05:23)
[2018-02-20] MEDS ORDERED: ZANTAC150 MG PO (05:26)
== END 2018-02-19 00:09 | disposition home or self-care (01) ==
LOC: EME 20:28
DX: F10.129 Alcohol abuse with intoxication, unspecified (principal); F32.9 Major depressive disorder, single episode, unspecified; J44.9 Chronic obstructive pulmonary disease, unspecified; I11.0 Hypertensive heart disease with heart failure; I50.9 Heart failure, unspecified; K21.9 Gastro-esophageal reflux disease without esophagitis; F03.90 Unspecified dementia, unspecified severity, without behavioral disturbance, psychotic disturbance, mood disturbance, and anxiety; Z86.73 Personal history of transient ischemic attack (TIA), and cerebral infarction without residual deficits; Z95.1 Presence of aortocoronary bypass graft; Z88.5 Allergy status to narcotic agent; F17.200 Nicotine dependence, unspecified, uncomplicated; F41.9 Anxiety disorder, unspecified
CPT/HCPCS: 99281; 99284

== ENCOUNTER 2018-02-19 12:29 | Emergency (ER) | payer OTHER ==
[~2018-02-19] VITALS: Ht 172.7 cm; Wt 80.9 kg
[2018-02-19] MEDS ORDERED: LEVAQUIN750 MG PO (16:15)
[2018-02-19 17:49] VITALS: BP 111/68
[2018-02-20] MEDS ORDERED: LIBRIUM25 MG PO (05:23)
[2018-02-20] MEDS ORDERED: ZOFRAN ODT4 MG PO (05:23)
[2018-02-20] MEDS ORDERED: ZANTAC150 MG PO (05:26)
== END 2018-02-19 17:49 | disposition home or self-care (01) ==
LOC: EME 12:29
DX: F10.129 Alcohol abuse with intoxication, unspecified (principal); J18.9 Pneumonia, unspecified organism; Y90.8 Blood alcohol level of 240 mg/100 ml or more; J44.0 Chronic obstructive pulmonary disease with (acute) lower respiratory infection; F03.90 Unspecified dementia, unspecified severity, without behavioral disturbance, psychotic disturbance, mood disturbance, and anxiety; F32.9 Major depressive disorder, single episode, unspecified; F41.9 Anxiety disorder, unspecified; I11.0 Hypertensive heart disease with heart failure; I50.9 Heart failure, unspecified; K21.9 Gastro-esophageal reflux disease without esophagitis; Z86.73 Personal history of transient ischemic attack (TIA), and cerebral infarction without residual deficits; Z95.1 Presence of aortocoronary bypass graft; F17.200 Nicotine dependence, unspecified, uncomplicated; Z88.5 Allergy status to narcotic agent
CPT/HCPCS: 71045; 80048; 83605; 85027; 94640; 99281; 99285; G0480; J0696; J1630

== ENCOUNTER 2018-02-19 23:41 | Emergency (ER) | payer OTHER ==
[~2018-02-19] VITALS: Ht 165.1 cm; Wt 81.4 kg
[~2018-02-19 23:41] MED LIST changes: +LEVAQUIN750 MG PO
[2018-02-20 00:12] LABS: BASOPHIL (%) 1.2 % (0-1); BASOPHIL COUNT 0.1 K/uL (0-0.1); EOSINOPHIL (%) 0.8 % (0-5); HEMATOCRIT 32.5 % (38.0-50.0); HEMOGLOBIN 10.2 G/DL (12.5-16.6); IMMATURE GRANULOCYTE (%) 0.2 % (0.0-0.7); LYMPHOCYTE (%) 25.4 % (15-42); LYMPHOCYTE COUNT 1.2 K/uL (1.0-2.8); MCH 29.1 PG (29.0-34.0); MCHC 31.4 G/DL (30.0-36.0); MCV 92.6 FL (86-99); NEUTROPHIL (%) 51.4 % (45-76); NEUTROPHIL COUNT 2.5 K/uL (1.8-6.4); RBC DIS.WIDTH-SD 67.9 % (39-53); RED BLOOD COUNT 3.51 M/uL (4.00-5.50); WHITE BLOOD COUNT 4.9 K/uL (4.1-10.2)
[2018-02-20 00:20] LABS: CHLORIDE 108 mEq/L (99-109); POTASSIUM 3.4 mEq/L (3.7-5.4); SODIUM 145 mEq/L (136-147)
[2018-02-20 00:21] LABS: MAGNESIUM 1.7 mg/dL (1.3-2.7)
[2018-02-20 00:23] LABS: GLUCOSE 120 mg/dL (70-99); TOTAL PROTEIN 6.3 g/dL (6.4-8.3)
[2018-02-20 00:24] LABS: TOTAL BILIRUBIN 0.3 mg/dL (0.0-1.0)
[2018-02-20 00:25] LABS: SERUM ETHYL ALCOHOL 98 mg/dL
[2018-02-20 00:26] LABS: ALKALINE PHOSPHATASE 77 IU/L (3-129); GFR ESTIMATE (CALCULATED) > 59 mL/min/ (58.99-99999)
[2018-02-20 00:27] LABS: UREA NITROGEN (BUN) 21 mg/dL (9-23)
[2018-02-20 00:28] LABS: AST (GOT) 44 IU/L (2-34)
[2018-02-20 00:29] LABS: ALT (GPT) 29 IU/L (3-49)
[2018-02-20 00:30] LABS: LIPASE 104 U/L (1.0-51.0)
[2018-02-20 01:15] LABS: PLAT.SUFFICIENCY ADEQUATE; PLATELET COUNT 363 K/uL (156-360)
[2018-02-20 04:00] LABS: APPEARANCE CLEAR ((CLEAR)); BILIRUBIN NEGATIVE; BLOOD NEGATIVE; COLOR YELLOW ((YELLOW)); GLUCOSE (STRIP) NEGATIVE; KETONES NEGATIVE; LEUKOCYTES NEGATIVE; NITRITE NEGATIVE; PROTEIN (STRIP) 30; SPECIFIC GRAVITY 1.021 (1.000-1.030); UCUL ADDED? NO; UROBILINOGEN 0.2 MG/DL (0.2-1.0)
[2018-02-20 04:08] LABS: AMPHETAMINE NEGATIVE (500 ng/mL); BARBITURATES NEGATIVE (200 ng/mL); BENZODIAZEPINES PRESUMPTIVE POSITIVE (150 ng/mL); BUPRENORPHINE NEGATIVE (10 ng/mL); COCAINE NEGATIVE (150 ng/mL); METHADONE NEGATIVE (200 ng/mL); METHAMPHETAMINE NEGATIVE (500 ng/mL); OPIATES (MORPHINE) NEGATIVE (100 ng/mL); OXYCODONE NEGATIVE (100 ng/mL); PHENCYCLIDINE NEGATIVE (25 ng/mL); PROPOXYPHENE NEGATIVE (300 ng/mL); THC CANNABINOIDS PRESUMPTIVE POSITIVE (50 ng/mL); TRICYCLIC ANTIDEPRESSANTS NEGATIVE (300 ng/mL)
[2018-02-20] MEDS ORDERED: LIBRIUM25 MG PO (05:23)
[2018-02-20] MEDS ORDERED: ZOFRAN ODT4 MG PO (05:23)
[2018-02-20] MEDS ORDERED: ZANTAC150 MG PO (05:26)
[2018-02-20 05:29] LABS: BENZODIAZEPINES, URINE SCREEN POSITIVE (200 ng/mL)
[2018-02-20 06:09] VITALS: BP 152/90
== END 2018-02-20 06:11 | disposition home or self-care (01) ==
LOC: EME 23:41
PROVIDERS: Emergency Medicine
DX: K29.70 Gastritis, unspecified, without bleeding (principal); F10.239 Alcohol dependence with withdrawal, unspecified; I10 Essential (primary) hypertension; Z91.14 Patient's other noncompliance with medication regimen; F12.10 Cannabis abuse, uncomplicated; E87.6 Hypokalemia; K86.0 Alcohol-induced chronic pancreatitis; J44.9 Chronic obstructive pulmonary disease, unspecified; K21.9 Gastro-esophageal reflux disease without esophagitis; F31.9 Bipolar disorder, unspecified; F41.9 Anxiety disorder, unspecified; F32.9 Major depressive disorder, single episode, unspecified; F03.90 Unspecified dementia, unspecified severity, without behavioral disturbance, psychotic disturbance, mood disturbance, and anxiety; F17.200 Nicotine dependence, unspecified, uncomplicated; Y90.4 Blood alcohol level of 80-99 mg/100 ml; Z95.1 Presence of aortocoronary bypass graft; Z87.19 Personal history of other diseases of the digestive system; Z86.73 Personal history of transient ischemic attack (TIA), and cerebral infarction without residual deficits; Z91.013 Allergy to seafood; Z88.5 Allergy status to narcotic agent
CPT/HCPCS: 80053; 81003; 83690; 83735; 84999; 85025; 99281; 99285; G0480; J7120

== ENCOUNTER 2018-02-25 17:54 | Emergency (ER) | payer OTHER ==
[~2018-02-25] VITALS: Ht 165.1 cm; Wt 81.4 kg
[~2018-02-25 17:54] MED LIST changes: +ZANTAC150 MG PO; +ZOFRAN ODT4 MG PO
[2018-02-25 22:21] VITALS: BP 163/107
== END 2018-02-25 22:22 | disposition home or self-care (01) ==
LOC: EME 17:54
DX: F10.129 Alcohol abuse with intoxication, unspecified (principal); S63.502A Unspecified sprain of left wrist, initial encounter; W19.XXXA Unspecified fall, initial encounter; F32.9 Major depressive disorder, single episode, unspecified; F41.9 Anxiety disorder, unspecified; I11.0 Hypertensive heart disease with heart failure; I50.9 Heart failure, unspecified; J44.9 Chronic obstructive pulmonary disease, unspecified; K21.9 Gastro-esophageal reflux disease without esophagitis; F03.90 Unspecified dementia, unspecified severity, without behavioral disturbance, psychotic disturbance, mood disturbance, and anxiety; Z86.73 Personal history of transient ischemic attack (TIA), and cerebral infarction without residual deficits; Z95.1 Presence of aortocoronary bypass graft; Z88.5 Allergy status to narcotic agent; F17.200 Nicotine dependence, unspecified, uncomplicated
CPT/HCPCS: 70450; 71046; 72125; 73110; 73130; 99281; 99285

== ENCOUNTER 2018-02-26 22:15 | Emergency (ER) | payer OTHER ==
[~2018-02-26] VITALS: Ht 162.6 cm; Wt 76.4 kg
[2018-02-26 23:13] VITALS: BP 121/85
[2018-02-27] MEDS ORDERED: LIBRIUM25 MG PO (11:48)
[2018-02-27] MEDS ORDERED: THIAMINE HCL100 MG PO (11:48)
== END 2018-02-27 00:20 | disposition left against medical advice (07) ==
LOC: EME 22:15
DX: Z53.21 Procedure and treatment not carried out due to patient leaving prior to being seen by health care provider (principal)

== ENCOUNTER 2018-02-27 07:01 | Inpatient (IN) | payer OTHER ==
[~2018-02-27] VITALS: Ht 165.1 cm; Wt 77.4 kg
[2018-02-27 08:12] LABS: HEMATOCRIT 34.2 % (38.0-50.0); MCH 29.5 PG (29.0-34.0); MCHC 32.2 G/DL (30.0-36.0); MCV 91.7 FL (86-99); RBC DIS.WIDTH-CV 19.9 % (11.8-14.6); RBC DIS.WIDTH-SD 67.2 % (39-53); RED BLOOD COUNT 3.73 M/uL (4.00-5.50); WHITE BLOOD COUNT 7.1 K/uL (4.1-10.2)
[2018-02-27 08:19] LABS: TROP-I INTERPRETATION NEGATIVE; TROPONIN-I 0.03 ng/mL (0.0-0.30)
[2018-02-27 08:52] LABS: PLAT.SUFFICIENCY ADEQUATE
[2018-02-27 08:57] LABS: PLATELET COUNT 244 K/uL (156-360)
[2018-02-27 09:01] LABS: CHLORIDE 103 MEQ/L (99-109); MAGNESIUM 1.4 mg/dl (1.3-2.7); POTASSIUM 3.7 MEQ/L (3.7-5.4); SODIUM 143 MEQ/L (136-147)
[2018-02-27 09:07] LABS: CREATININE 1.9 MG/DL (0.6-1.3); GFR ESTIMATE (CALCULATED) 39 mL/min/ (58.99-99999); GLUCOSE 116 mg/dL (70-99); UREA NITROGEN (BUN) 36 mg/dL (9-23)
[2018-02-27] MEDS ORDERED: LIBRIUM25 MG PO (11:48)
[2018-02-27] MEDS ORDERED: THIAMINE HCL100 MG PO (11:48)
[2018-02-27 19:37] VITALS: BP 124/60
[2018-02-27 20:05] VITALS: BP 124/60
[2018-02-27 23:37] VITALS: BP 163/90
[2018-02-28 08:15] VITALS: BP 151/89
[2018-02-28 15:36] LABS: APPEARANCE CLEAR ((CLEAR)); BILIRUBIN NEGATIVE; BLOOD NEGATIVE; COLOR YELLOW ((YELLOW)); GLUCOSE (STRIP) NEGATIVE; KETONES NEGATIVE; LEUKOCYTES NEGATIVE; NITRITE NEGATIVE; PROTEIN (STRIP) NEGATIVE
[2018-02-28 15:48] VITALS: BP 147/92
[2018-02-28 16:03] LABS: UR CREATININE CONCENTRATION 200.9 MG/DL
[2018-02-28 16:17] LABS: BENZODIAZEPINES, URINE SCREEN POSITIVE (200 ng/mL)
[2018-03-01 07:16] LABS: BASOPHIL (%) 0.6 % (0-1); EOSINOPHIL (%) 2.6 % (0-5); EOSINOPHIL COUNT 0.1 K/uL (0-0.3); HEMOGLOBIN 9.4 G/DL (12.5-16.6); IMMATURE GRANULOCYTE (%) 0.4 % (0.0-0.7); LYMPHOCYTE (%) 25.4 % (15-42); LYMPHOCYTE COUNT 1.3 K/uL (1.0-2.8); MCH 29.1 PG (29.0-34.0); MCHC 31.3 G/DL (30.0-36.0); MCV 92.9 FL (86-99); MONOCYTE (%) 13.5 % (3-12); MONOCYTE COUNT 0.7 K/uL (0-0.8); NEUTROPHIL (%) 57.5 % (45-76); NEUTROPHIL COUNT 2.9 K/uL (1.8-6.4); PLATELET COUNT 231 K/uL (156-360); RBC DIS.WIDTH-CV 19.6 % (11.8-14.6); RBC DIS.WIDTH-SD 66.4 % (39-53); RED BLOOD COUNT 3.23 M/uL (4.00-5.50)
[2018-03-01 08:28] LABS: CHLORIDE 104 MEQ/L (99-109); CREATINE KINASE 100 IU/L (1-294); GFR ESTIMATE (CALCULATED) > 59 mL/min/ (58.99-99999); GLUCOSE 99 mg/dL (70-99); POTASSIUM 3.5 MEQ/L (3.7-5.4); SODIUM 142 MEQ/L (136-147); UREA NITROGEN (BUN) 30 mg/dL (9-23)
[2018-03-01 09:30] VITALS: BP 173/91
[2018-03-01 12:04] VITALS: BP 171/91
[2018-03-01 16:10] VITALS: BP 142/91
[2018-03-02 00:06] VITALS: BP 125/87
[2018-03-02 08:34] VITALS: BP 179/108
[2018-03-02 16:01] VITALS: BP 156/95
[2018-03-03 07:51] VITALS: BP 205/103
[2018-03-03 15:31] VITALS: BP 146/86
[2018-03-04 00:08] VITALS: BP 148/87
[2018-03-04 07:48] VITALS: BP 139/87
[2018-03-04 10:20] VITALS: BP 131/87
[2018-03-04 12:23] LABS: CHLORIDE 103 MEQ/L (99-109); CREATININE 0.9 MG/DL (0.6-1.3); GFR ESTIMATE (CALCULATED) > 59 mL/min/ (58.99-99999); GLUCOSE 107 mg/dL (70-99); POTASSIUM 3.8 MEQ/L (3.7-5.4); SODIUM 139 MEQ/L (136-147); UREA NITROGEN (BUN) 25 mg/dL (9-23)
[2018-03-05] MEDS ORDERED: COMBIVENT RESPIM4 GM IH (11:30)
[2018-03-05] MEDS ORDERED: PANTOPRAZOLE SO40 MG PO (11:30)
[2018-03-05] MEDS ORDERED: FUROSEMIDE20 MG PO (11:30)
[2018-03-05] MEDS ORDERED: BUSPAR30 MG PO (11:30)
[2018-03-05] MEDS ORDERED: ZOFRAN ODT4 MG PO (11:30)
[2018-03-05] MEDS ORDERED: LISINOPRIL20 MG PO (11:30)
[2018-03-05] MEDS ORDERED: SINEQUAN25 MG PO (11:30)
[2018-03-05] MEDS ORDERED: FOLIC ACID1 MG PO (11:30)
[2018-03-05] MEDS ORDERED: TIMOPTIC-0100 DROP/5 RIGHT EYE (11:30)
[2018-03-05] MEDS ORDERED: ZANTAC150 MG PO (11:30)
[2018-03-05] MEDS ORDERED: BUPROPION HCL150 M2 PO (11:30)
[2018-03-05] MEDS ORDERED: LIBRIUM25 MG PO (11:30)
[2018-03-05] MEDS ORDERED: VITAMIN B-1100 MG PO (11:30)
[2018-03-05] MEDS ORDERED: HYDRALAZINE HCL50 MG PO (15:25)
== END 2018-03-04 10:46 | DRG 897 ==
LOC: EME 07:01 → EDOF 17:59 → 1WEST 17:59 → ENRESERV 19:19 → 1WEST 03-04 10:46
PROVIDERS: Internal Medicine Nephrology; Nurse Practitioner Family; Physician Assistant
PROC: HZ2ZZZZ Detoxification Services for Substance Abuse Treatment (ICD-10-PCS; principal; 2018-02-27)
DX: F10.239 Alcohol dependence with withdrawal, unspecified (principal); N17.9 Acute kidney failure, unspecified; F11.20 Opioid dependence, uncomplicated; R45.851 Suicidal ideations; Y90.0 Blood alcohol level of less than 20 mg/100 ml; E78.5 Hyperlipidemia, unspecified; E86.0 Dehydration; F17.210 Nicotine dependence, cigarettes, uncomplicated; F41.8 Other specified anxiety disorders; G40.909 Epilepsy, unspecified, not intractable, without status epilepticus; I25.10 Atherosclerotic heart disease of native coronary artery without angina pectoris; K21.9 Gastro-esophageal reflux disease without esophagitis; I44.0 Atrioventricular block, first degree; I10 Essential (primary) hypertension; K70.9 Alcoholic liver disease, unspecified; J45.909 Unspecified asthma, uncomplicated; Z60.2 Problems related to living alone; G47.00 Insomnia, unspecified; G62.9 Polyneuropathy, unspecified; Z86.711 Personal history of pulmonary embolism; Z86.718 Personal history of other venous thrombosis and embolism; Z91.19 Patient's noncompliance with other medical treatment and regimen; Z91.14 Patient's other noncompliance with medication regimen; Z88.5 Allergy status to narcotic agent; Z91.013 Allergy to seafood; Z56.0 Unemployment, unspecified; I25.2 Old myocardial infarction; Z82.49 Family history of ischemic heart disease and other diseases of the circulatory system; Z82.3 Family history of stroke
CPT/HCPCS: 70450; 76770; 80048; 80306 90; 81003; 82550; 82570; 83735; 84156; 84484; 85025; 85027; 90839; 93005; 94640; 94640 76; 97150 GO; 97166 GO; 99202; 99281; 99285; G0480; J2060; J2405; J7030; Q0177

== ENCOUNTER 2018-03-04 10:36 | Observation (INO) | payer OTHER ==
[~2018-03-04] VITALS: Ht 165.1 cm; Wt 79.3 kg
[2018-03-04 12:42] VITALS: BP 126/91
[2018-03-04 13:00] LABS: BASOPHIL (%) 1.1 % (0-1); BASOPHIL COUNT 0.1 K/uL (0-0.1); EOSINOPHIL (%) 3.3 % (0-5); EOSINOPHIL COUNT 0.2 K/uL (0-0.3); HEMATOCRIT 35.2 % (38.0-50.0); HEMOGLOBIN 10.4 G/DL (12.5-16.6); IMMATURE GRANULOCYTE (%) 0.3 % (0.0-0.7); LYMPHOCYTE (%) 25.2 % (15-42); LYMPHOCYTE COUNT 1.6 K/uL (1.0-2.8); MCH 29.1 PG (29.0-34.0); MCHC 29.5 G/DL (30.0-36.0); MONOCYTE (%) 13.2 % (3-12); MONOCYTE COUNT 0.8 K/uL (0-0.8); NEUTROPHIL (%) 56.9 % (45-76); NEUTROPHIL COUNT 3.6 K/uL (1.8-6.4); PLATELET COUNT 258 K/uL (156-360); RBC DIS.WIDTH-CV 19.7 % (11.8-14.6); RBC DIS.WIDTH-SD 71.9 % (39-53); RED BLOOD COUNT 3.57 M/uL (4.00-5.50); WHITE BLOOD COUNT 6.3 K/uL (4.1-10.2)
[2018-03-04 13:04] LABS: MCV 98.6 FL (86-99)
[2018-03-04 13:15] LABS: ALBUMIN 3.7 G/DL (3.2-4.8); ALKALINE PHOSPHATASE 75 IU/L (3-129); ALT (GPT) 61 IU/L (3-49); AST (GOT) 43 IU/L (2-34); CHLORIDE 108 MEQ/L (99-109); CREATININE 0.9 MG/DL (0.6-1.3); DIRECT BILIRUBIN 0.1 mg/dL (0.0-0.3); GFR ESTIMATE (CALCULATED) > 59 mL/min/ (58.99-99999); GLUCOSE 133 mg/dL (70-99); MAGNESIUM 1.7 mg/dl (1.3-2.7); POTASSIUM 3.9 MEQ/L (3.7-5.4); SODIUM 143 MEQ/L (136-147); TOTAL BILIRUBIN 0.5 MG/DL (0.0-1.0); TOTAL PROTEIN 5.6 G/DL (6.4-8.3); UREA NITROGEN (BUN) 23 mg/dL (9-23)
[2018-03-04 13:36] LABS: TROP-I INTERPRETATION NEGATIVE; TROPONIN-I < 0.01 ng/mL (0.0-0.30)
[2018-03-04 15:50] VITALS: BP 147/90
[2018-03-04 19:49] LABS: TROP-I INTERPRETATION NEGATIVE; TROPONIN-I < 0.01 ng/mL (0.0-0.30)
[2018-03-04 20:13] VITALS: BP 138/82
[2018-03-04 23:57] VITALS: BP 130/77
[2018-03-05 00:49] LABS: TROP-I INTERPRETATION NEGATIVE; TROPONIN-I < 0.01 ng/mL (0.0-0.30)
[2018-03-05 08:31] VITALS: BP 151/90
[2018-03-05 08:40] LABS: INTER. NORMALIZED RATIO 0.9
[2018-03-05 11:18] VITALS: BP 153/90
[2018-03-05] MEDS ORDERED: LIBRIUM25 MG PO (11:30)
[2018-03-05] MEDS ORDERED: LISINOPRIL20 MG PO (11:30)
[2018-03-05] MEDS ORDERED: VITAMIN B-1100 MG PO (11:30)
[2018-03-05] MEDS ORDERED: FUROSEMIDE20 MG PO (11:30)
[2018-03-05] MEDS ORDERED: TIMOPTIC-0100 DROP/5 RIGHT EYE (11:30)
[2018-03-05] MEDS ORDERED: PANTOPRAZOLE SO40 MG PO (11:30)
[2018-03-05] MEDS ORDERED: COMBIVENT RESPIM4 GM IH (11:30)
[2018-03-05] MEDS ORDERED: BUSPAR30 MG PO (11:30)
[2018-03-05] MEDS ORDERED: FOLIC ACID1 MG PO (11:30)
[2018-03-05] MEDS ORDERED: ZOFRAN ODT4 MG PO (11:30)
[2018-03-05] MEDS ORDERED: SINEQUAN25 MG PO (11:30)
[2018-03-05] MEDS ORDERED: ZANTAC150 MG PO (11:30)
[2018-03-05] MEDS ORDERED: BUPROPION HCL150 M2 PO (11:30)
[2018-03-05 14:57] VITALS: BP 173/121
[2018-03-05] MEDS ORDERED: HYDRALAZINE HCL50 MG PO (15:25)
[2018-03-05 16:44] VITALS: BP 160/83
[2018-03-05 20:00] VITALS: BP 179/90
[2018-03-05 23:32] VITALS: BP 168/95
[2018-03-06 08:10] VITALS: BP 215/115
[2018-03-06 10:38] VITALS: BP 142/102
[2018-03-06] MEDS ORDERED: NIFEDIPINE ER60 MG PO (10:49)
[2018-03-06] MEDS ORDERED: CLONIDINE HCL0.2 MG PO (10:49)
[2018-03-06] MEDS ORDERED: LISINOPRIL40 MG PO (10:49)
== END 2018-03-06 12:36 ==
LOC: 4SOUTH 10:36 → EDSTATUS 10:37 → ENRESERV 10:38 → 4SOUTH 10:39
PROVIDERS: Internal Medicine; Physician Assistant
DX: R00.1 Bradycardia, unspecified (principal); I10 Essential (primary) hypertension; R60.0 Localized edema; Z86.711 Personal history of pulmonary embolism; Z86.718 Personal history of other venous thrombosis and embolism; Z79.01 Long term (current) use of anticoagulants; Z87.19 Personal history of other diseases of the digestive system; Z91.14 Patient's other noncompliance with medication regimen; N17.9 Acute kidney failure, unspecified; G40.909 Epilepsy, unspecified, not intractable, without status epilepticus; F17.210 Nicotine dependence, cigarettes, uncomplicated; J44.9 Chronic obstructive pulmonary disease, unspecified; F41.9 Anxiety disorder, unspecified; F32.9 Major depressive disorder, single episode, unspecified; F10.20 Alcohol dependence, uncomplicated; I25.10 Atherosclerotic heart disease of native coronary artery without angina pectoris; K70.9 Alcoholic liver disease, unspecified; Z88.5 Allergy status to narcotic agent; Z91.013 Allergy to seafood
CPT/HCPCS: 80053; 82140; 82248; 83735; 84484; 85025; 85610; 93005; 93306; 94640; 94640 76; G0378; J1650; J7040